=== PATIENT | female | born 1985 | race Caucasian/White ===

== ENCOUNTER 2016-08-31 09:07 | Emergency (ER) | payer OTHER ==
[2016-08-31 10:42] VITALS: BP 150/89
--- NOTE | 2016-08-31 11:19 | UC ---
Respiratory Complaint HPI - HPI Summary HPI Summary: increasd cough and SOB, some nasal congestion over the past week - History of Current Complaint Chief Complaint: UCRespiratory Stated Complaint: COUGH,CONGESTION Time Seen by Provider: 08/31/16 11:08 Hx Obtained From: Patient Hx Last Menstrual Period: ~08/17/16 ?: No Onset/Duration: Sudden Onset, Lasting Days Timing: Constant Severity Initially: Mild Severity Currently: Moderate Pain Intensity: 6 Pain Scale Used: 0-10 Numeric Character: Cough: Nonproductive Aggravating Factors: Deep Breaths, Recumbent Position Alleviating Factors: Nothing Associated Signs And Symptoms: Positive: Wheezing - Allergies/Home Medications Allergies/Adverse Reactions: Allergies Allergy/AdvReac Type Severity Reaction Status Date / Time Bacitracin Allergy Painful Verified 08/31/16 10:37 Pruritis and Rash Home Medications: Home Medications ALPRAZolam TAB* [Xanax TAB*] 1 mg PO Q8H PRN 08/31/16 [History Confirmed ] FLUoxetine CAP* [PROzac CAP*] 40 mg PO TID 08/31/16 [History Confirmed 08/31/16] PMH/Surg Hx/FS Hx/Imm Hx Previously Healthy: Yes Endocrine History Of: Denies: Diabetes, Thyroid Disease Cardiovascular History Of: Denies: Cardiac Disorders, Hypertension Respiratory History Of: Denies: COPD, Asthma GI/ History Of: Denies: Ulcer Neurological History Of: Denies: TIA, CVA, Dementia, Seizures, Migraine Psychological History Of: Reports: Anxiety Denies: Depression, Bipolar Disorder, Schizophrenia, Post Traumatic Stress Disorder Cancer History Of: Denies: Lung Cancer, Colorectal Cancer, Breast Cancer, Prostate Cancer, Cervical Cancer - Surgical History Surgical History: Yes Surgery Procedure, Year, and Place: T&A. urethral diverticulium with cyst removal. eptopic with partial tube removal. ectopic 12/2015 - Family History Known Family History: Negative: Cardiac Disease, Hypertension - Social History Alcohol Use: Occasionally Substance Use Type: None Smoking Status (MU): Former Smoker Type: Cigarettes Length of Time of Smoking/Using Tobacco: On and Off for 3 years Have You Smoked in the Last Year: No When Did the Patient Quit Smoking/Using Tobacco: 2004 - Immunization History Most Recent Influenza Vaccination: Not the Season Review of Systems Constitutional: Negative Skin: Negative Eyes: Negative ENT: Nasal Discharge Respiratory: Shortness Of Breath, Cough Cardiovascular: Negative Gastrointestinal: Negative Genitourinary: Negative Motor: Negative Neurovascular: Negative Musculoskeletal: Negative Neurological: Headache Psychological: Negative All Other Systems Reviewed And Are Negative: Yes Physical Exam Triage Information Reviewed: Yes Appearance: No Pain Distress, Well-Nourished, Ill-Appearing Vital Signs: Initial Vital Signs Temp 98.6 F 08/31/16 10:34 Pulse 64 08/31/16 10:34 Resp 16 08/31/16 10:34 BP 150/89 08/31/16 10:34 Pulse Ox 100 08/31/16 10:34 Vital Signs Reviewed: Yes Eye Exam: Normal Eyes: Positive: Conjunctiva Clear ENT Exam: Normal ENT: Positive: Normal ENT inspection, Pharyngeal erythema, TMs normal Dental Exam: Normal Neck exam: Normal Neck: Positive: Supple, Nontender, No Lymphadenopathy Respiratory Exam: Normal Respiratory: Positive: No respiratory distress, No accessory muscle use, Wheezing, Inspiration, Other: - bronchopastic cough Cardiovascular Exam: Normal Cardiovascular: Positive: RRR, No Murmur, Pulses Normal Abdominal Exam: Normal Abdomen Description: Positive: Nontender, No Organomegaly, Soft Bowel Sounds: Positive: Present Musculoskeletal Exam: Normal Musculoskeletal: Positive: Strength Intact, ROM Intact, No Edema Neurological Exam: Normal Neurological: Positive: Alert, Muscle Tone Normal Psychological Exam: Normal Skin Exam: Normal UC Diagnostic Evaluation - Laboratory O2 Sat by Pulse Oximetry: 100 Respiratory Course/Dx - Course Course Of Treatment: hx obtained, exam performed, medications reviewed and prescribed - Differential Dx/Diagnosis Differential Diagnosis/HQI/PQRI: Asthma, Bronchitis, Influenza, Laryngitis, SARS , Sinusitis Provider Diagnoses: bronchitis Discharge - Discharge Plan Condition: Stable Disposition: HOME Prescriptions: Albuterol HFA INHALER* [Ventolin HFA Inhaler*] 1 - 2 puff INH Q4H PRN #1 mdi PRN Reason: Cough predniSONE TAB* [Deltasone TAB*] 40 mg PO DAILY #10 tab Patient Education Materials: Acute Bronchitis (ED) Additional Instructions: Take the medication as prescribed. Increase fluid intake and I recommend saline spray up the nose to clear and keep the passages moist. follow up with any worsening symptoms.
== END 2016-08-31 11:24 | disposition home or self-care (01) ==
LOC: UCCORT 09:07
DX: J40 Bronchitis, not specified as acute or chronic (principal); F41.9 Anxiety disorder, unspecified; Z87.891 Personal history of nicotine dependence; Z88.1 Allergy status to other antibiotic agents
CPT/HCPCS: 99212; G0463

== ENCOUNTER 2017-01-30 13:39 | Emergency (ER) | payer OTHER ==
[2017-01-30 15:29] VITALS: BP 121/81
[2017-01-30] MEDS ORDERED: Fluorescein Sodium TOPICAL* 1 MG TEST OPHTHALMIC ONE (15:49)
[2017-01-30] MEDS ORDERED: Fluorescein Sodium TOPICAL* 1 MG TEST ONE (15:50)
--- NOTE | 2017-01-30 16:06 | UC ---
Eye Complaint HPI - HPI Summary HPI Summary: R eye redness and irritation since yesterday morning. Uses contacts but is not diligent about changing them; also sleeps in them occasionally. Mild photophobia , tried using leftover eye drops from previous "pink eye" without relief. - History of Current Complaint Chief Complaint: UCEye Stated Complaint: RIGHT EYE COMPLAINT Time Seen by Provider: 01/30/17 15:31 Hx Obtained From: Patient Hx Last Menstrual Period: 01/05/17 ?: No Onset/Duration: Gradual Onset, Lasting Days Timing: Constant Severity Initially: Mild Severity Currently: Moderate Location of Injury: Conjunctiva Character: Dull Aggravating Factor(s): Light Alleviating Factor(s): Darkness Associated Signs And Symptoms: Positive: Drainage (Clear) - Allergies/Home Medications Allergies/Adverse Reactions: Allergies Allergy/AdvReac Type Severity Reaction Status Date / Time Bacitracin Allergy Painful Verified 01/30/17 15:29 Pruritis and Rash Home Medications: Home Medications Hydrocodone-Acetaminophen [Hydrocodone Bitartrate/AC 7.5-300 mg] 1 tab PO Q4H PRN 01/30/17 [History Confirmed 01/30/17] PMH/Surg Hx/FS Hx/Imm Hx Respiratory History: Asthma Psychological History: Bipolar Disorder - Surgical History Surgical History: Yes Surgery Procedure, Year, and Place: T&A. urethral diverticulium with cyst removal. eptopic with partial tube removal. ectopic 12/2015 - Family History Known Family History: Positive: None Negative: Cardiac Disease, Hypertension - Social History Lives: With Family Alcohol Use: Rare Substance Use Type: None Smoking Status (MU): Former Smoker Type: Cigarettes Length of Time of Smoking/Using Tobacco: On and Off for 3 years Have You Smoked in the Last Year: No When Did the Patient Quit Smoking/Using Tobacco: 2004 - Immunization History Most Recent Influenza Vaccination: Not the 2015/2016 Season Review of Systems Constitutional: Negative Skin: Negative Eyes: Eye Redness ENT: Negative Respiratory: Negative Cardiovascular: Negative Gastrointestinal: Negative Genitourinary: Negative Motor: Negative Neurovascular: Negative Musculoskeletal: Negative Neurological: Negative Psychological: Negative All Other Systems Reviewed And Are Negative: Yes Physical Exam Triage Information Reviewed: Yes Appearance: Well-Appearing, No Pain Distress, Well-Nourished Vital Signs: Initial Vital Signs Temp 98.2 F 01/30/17 15:24 Pulse 78 01/30/17 15:24 Resp 17 01/30/17 15:24 BP 121/81 01/30/17 15:24 Pulse Ox 100 01/30/17 15:24 Vital Signs Reviewed: Yes Eye Exam: Other - PERRL Eyes: Positive: Conjunctiva Inflamed - R, Other: - fluorescein dye uptake on superior edge of cornea, irreg, no FB noted ENT Exam: Normal ENT: Positive: Normal ENT inspection, Hearing grossly normal, Pharynx normal, TMs normal Dental Exam: Normal Neck exam: Normal Neck: Positive: Supple, Nontender, No Lymphadenopathy Respiratory Exam: Normal Respiratory: Positive: Chest non-tender, Lungs clear, Normal breath sounds, No respiratory distress, No accessory muscle use Cardiovascular Exam: Normal Cardiovascular: Positive: RRR, No Murmur Musculoskeletal Exam: Normal Neurological Exam: Normal Neurological: Positive: Alert Psychological Exam: Normal Skin Exam: Normal Eye Complaint Course/Dx - Differential Dx/Diagnosis Provider Diagnoses: R eye corneal abrasion. elevated blood pressure due to discomfort. medication refills Discharge - Discharge Plan Condition: Stable Disposition: HOME Prescriptions: ARIPiprazole TAB* [Abilify TAB*] 10 mg PO DAILY #10 tab Albuterol HFA INHALER* [Ventolin HFA Inhaler*] 1 - 2 puff INH Q4H PRN #1 mdi PRN Reason: Cough Ciprofloxacin 0.3% OPTH.CLAUDINE* [Cipro 0.3% Opth*] 2 drop RIGHT EYE QID #5 ml FLUoxetine CAP* [Prozac CAP*] 20 mg PO DAILY #10 cap LORazepam TAB(*) [Ativan 1 MG TAB (*)] 1 mg PO QID PRN #12 tab MDD 4 PRN Reason: Anxiety Patient Education Materials: Corneal Abrasion (ED), Medicine Refill (ED) Referrals: Antonia Bo MD [Medical Doctor] - 3 Days Heri Rojas [Primary Care Provider] - 3 Days Additional Instructions: Please see Dr. Bo's office on Thursday if your symptoms have not resolved. If your eye gets better in 2-3 days, simply use the drops for a week and then stop. You will need to get your regular medication refills from your primary care provider.
== END 2017-01-30 16:18 | disposition home or self-care (01) ==
LOC: UCCORT 13:39
DX: H18.821 Corneal disorder due to contact lens, right eye (principal); J45.909 Unspecified asthma, uncomplicated; F31.9 Bipolar disorder, unspecified; Z87.891 Personal history of nicotine dependence
CPT/HCPCS: 99212; A9270-GY; G0463

== ENCOUNTER 2017-12-22 17:07 | Emergency (ER) | payer OTHER ==
[2017-12-22 18:35] VITALS: BP 105/58
--- NOTE | 2017-12-22 18:45 | UC ---
Complaint Female HPI - HPI Summary HPI Summary: Pt c/o sudden onset of urinary symptoms of frequency, urgency and dysuria that began this morning. - History Of Current Complaint Chief Complaint: UCGU Stated Complaint: UTI Time Seen by Provider: 12/22/17 18:37 Hx Obtained From: Patient Hx Last Menstrual Period: 12/08/17 ?: No Onset/Duration: Sudden Onset, Lasting Hours Timing: Constant Severity Initially: Mild Severity Currently: Mild Pain Intensity: 4 Character: Dull, Burning Aggravating Factor(s): Urination Associated Signs And Symptoms: Positive: Negative - Risk Factors Ectopic Risk Factor: Negative Ovarian Torsion Risk Factor: Reproductive Age - Allergies/Home Medications Allergies/Adverse Reactions: Allergies Allergy/AdvReac Type Severity Reaction Status Date / Time bacitracin Allergy Rash And Verified 12/22/17 18:31 Itching Sulfa (Sulfonamide Allergy Hives Verified 12/22/17 18:31 Antibiotics) PMH/Surg Hx/FS Hx/Imm Hx Previously Healthy: Yes - Surgical History Surgical History: Yes Surgery Procedure, Year, and Place: T&A. urethral diverticulium with cyst removal. eptopic with partial tube removal. ectopic 12/2015. RENAL CALCULI LITHOTRIPSY - Family History Known Family History: Positive: None Negative: Cardiac Disease, Hypertension - Social History Occupation: Employed Full-time Lives: With Family Alcohol Use: Rare Substance Use Type: None Smoking Status (MU): Former Smoker Type: Cigarettes Length of Time of Smoking/Using Tobacco: On and Off for 3 years Have You Smoked in the Last Year: No When Did the Patient Quit Smoking/Using Tobacco: 2004 - Immunization History Most Recent Influenza Vaccination: Not the Season Review of Systems Constitutional: Negative Skin: Negative Eyes: Negative ENT: Negative Respiratory: Negative Cardiovascular: Negative Gastrointestinal: Negative Genitourinary: Dysuria, Frequency, Urgency Motor: Negative Neurovascular: Negative Musculoskeletal: Negative Neurological: Negative Psychological: Negative Is Patient Immunocompromised?: No All Other Systems Reviewed And Are Negative: Yes Physical Exam Triage Information Reviewed: Yes Appearance: Well-Appearing Vital Signs: Initial Vital Signs Temp 99.1 F 12/22/17 18:27 Pulse 64 12/22/17 18:27 Resp 14 12/22/17 18:27 BP 105/58 12/22/17 18:27 Pulse Ox 100 12/22/17 18:27 Vital Signs Reviewed: Yes Eye Exam: Normal ENT: Positive: Hearing grossly normal Dental Exam: Normal Respiratory: Positive: No respiratory distress Musculoskeletal Exam: Normal Neurological Exam: Normal Psychological Exam: Normal Skin Exam: Normal Complaint Female Dx - Differential Dx/Diagnosis Differential Diagnosis/HQI/PQRI: Urinary Tract Infection Provider Diagnoses: UTI Discharge - Sign-Out/Discharge Documenting (check all that apply): Discharge/Admit/Transfer - Discharge Plan Condition: Stable Disposition: HOME Prescriptions: Cephalexin CAP* [Keflex 500 CAP*] 500 mg PO Q12H #14 cap Phenazopyridine TAB* [Pyridium 100 mg TAB*] 100 mg PO Q8H #3 tab Patient Education Materials: Urinary Tract Infection in Women (ED) Referrals: Alexia Santiago MD [Primary Care Provider] - If Needed - Billing Disposition and Condition Condition: STABLE Disposition: HOME
== END 2017-12-22 18:55 | disposition home or self-care (01) ==
LOC: UCCORT 17:07
DX: N39.0 Urinary tract infection, site not specified (principal); Z88.1 Allergy status to other antibiotic agents; Z88.2 Allergy status to sulfonamides
CPT/HCPCS: 81003; 87086; 99212; G0463

== ENCOUNTER 2018-05-12 08:32 | Emergency (ER) | payer OTHER ==
--- OUTSIDE RECORDS SUMMARY | 2018-05-12 09:31 | XMS REPORT | Continuity of Care Document ---
:1985 External Reference #:[id number] Author Name Carlitos Morales N.P. Address [address] [place] [address] Care Team Providers Name Role Phone Alexia Santiago MD Care Team Information C S S Representative Unavailable Payers Type Date Identification Numbers Payment Provider Subscriber Policy Number: [id number] [facility] Donald vIan PayID: [id number] [address] [place] [address] Policy Number: [id number] [employer] Donald Ivan PayID: [id number] [address] [place] [address] Advance Directives Description No Information Available Problems Date Description Provider Status Onset: 07/08/2016 Anxiety state Heri Higgins Active Onset: 07/08/2016 Insomnia Heri Higgins Active Onset: 07/08/2016 Bipolar disorder Heri Higgins Active Onset: 07/08/2016 Moderate recurrent major depression Heri Higgins Active Onset: 07/08/2016 Degeneration of lumbar intervertebral disc Heri Higgins Active Family History Date Family Member(s) Problem(s) Comments Father 58 Father Thyroid Disease Father Hyperthyroidism Mother 61 Mother No Current Problems Children 1 Social History Type Date Description Comments Sex Unknown Marital Status Legal Status: Never 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 every day F41.9 Fluoxetine HCL 05/06/2016 Active Capsules 40mg 90caps 1 by mouth F31.81 Alexia Santiago three times M., M.D. a day a day F41.9 Ibuprofen Active Tablets 600mg 90tabs 1 tab by mouth M51.37 Alexia Santiago three times a M., M.D. day as needed M79.606 M54.2 Fluconazole Hx Tablets 100mg 14tabs tab one by N76.0 Alexia Santiago 017 - mouth x14 M., M.D. days 018 Metronidazole Hx Tablets 500mg 20tabs 1 tab by N76.0 Alexia Santiago 017 - mouth twice a M., M.D. day 017 Ondansetron HCL Hx Tablets 8mg 40tabs 1 tab by N20.0 Alexia Santiago 017 - mouth every 6 M., M.D. hours as 018 needed Diazepam Hx Tablets 5mg 90tabs 1 tab by F41.9 Alexia Santiago 017 - mouth bid-tid M., M.D. as needed 018 Hydrocodone-Acetamino Hx Tablets 10-325m 180tabs 1-2 tab by M51.37 Alexia Santiago phen 017 - g mouth every 4 M., M.D. hours as 018 needed M79.606 Gentamicin 12/18/2016 - Hx Solution 0.3% 10cc 2 drops both Jack, Sulfate 12/29/2016 eyes three Ahmad M., times a day M.D. for 5-7 days Topiramate 09/16/2016 - Hx Tablets 50mg 60tabs tab one by M54. Jack, 09/23/2016 mouth twice a 2 Ahmad M., day M.D. Cipro 09/04/2016 - Hx Tablets 500mg 20tabs 1 twice a day J06. Jack, 09/15/2016 9 Alexia Garcia M.D. Cheratussin ac 09/04/2016 - Hx Syrup 100-10mg 150cc teaspoon 1 J06. Jack, 09/13/2016 /5ML every 4 hours 9 Alexia Garcia, as needed M.D. Prednisone 08/12/2016 - Hx Tablets 20mg 18tabs 3 tab by mouth Jack, 09/13/2016 daily 3 days, Ahmaglenn Garcia, then 2 tab M.D. daily x 3 d , then 1 tab daily 3d Fluoxetine HCL 04/11/2016 - Hx Capsules 20mg 60caps tab one by F33Leonardo Santiago, (PMDD) 05/06/2016 mouth twice a 1 Alexia Garcia, day M.DLeonardo Cephalexin 03/03/2016 - Hx Capsules 500mg 30caps tab one by Jack, 03/14/2016 mouth three Alexia Garcia, times a day M.D. Quetiapine 02/28/2016 - Hx Tablets 25mg 60tabs tab one po bid F31. Jack, Fumarate 04/11/2016 81 Alexia Garcia M.D. Aripiprazole 02/26/2016 - Hx Tablets 10mg 30tabs Tab One PO Q Jack, 02/28/2016 hs Alexia Garcia M.D. Sulfamethoxazole 02/26/2016 - Hx Tablets 800-160m 20tabs tab one by Jack, /Trimethoprim DS 03/03/2016 g mouth twice a Alexia Garcia, day M.DLeonardo Physical Therapy 08/14/2015 - Hx strengthen Danny Santiago, To Lumbar Region 08/31/2015 lumbar muscles 5 Alexia Garcia M.D. Ondansetron HCL 06/05/2015 - Hx Tablets 4mg 60tabs Tab One Q 4 M54. Jack, 11/09/2015 HRS prn 5 Alexia Garcia M.D. Gabapentin 05/31/2015 - Hx Capsules 300mg 30caps take one M54. Jack, 06/05/2015 capsule by 5 Alexia Garcia, mouth three M.D. times a day maximum daily dose=3 M25.559 M54.30 Hydrocodone-Acetaminophen 05/31/2015 Hx Tablets 7.5-325mg 120tabs tab one M51.37 Jack, - by esthela 04/15/2017 mouth M., every 3 M.D. hour as needed M79.606 [facility] 10&20&40[facility] F31.81 [facility] Nakul Garcia Ativan - Hx Tablets 1mg 45tabs 1 tab by 1.81 Jack, [facility] 04/15/2017 mouth three Nakul Garcia times a day as needed G47.00 Cyclobenzaprine HCL - Hx Tablets 10mg Unknown 11/30/2015 Hydrocodone-Acetaminophen - Hx Tablets 5-325mg Alexia Santiago, 05/31/2015 M.DLeonardo Immunizations CPT Code Status Date Vaccine Lot # [id number] Refused 06/10/2016 Flu Vaccine 65084 Refused 06/19/2015 Flu Vaccine Vital Signs Date Vital Result Comment 05/03/2018 11:32am BP Systolic 112 mmHg BP Diastolic 72 mmHg Height 64 inches 5'4" Weight 153.00 lb BMI (Body Mass Index) 26.3 kg/m2 Heart Rate 74 /min Body Temperature 97.3 F Respiratory Rate 18 /min 04/26/2018 3:57pm BP Systolic 118 mmHg BP Diastolic 78 mmHg Height 63.5 inches 5'3.50" Weight 155.00 lb BMI (Body Mass Index) 27.0 kg/m2 Heart Rate 81 /min Respiratory Rate 16 /min 12/24/2017 1:28pm BP Systolic 100 mmHg BP Diastolic 62 mmHg Height 63.5 inches 5'3.50" Weight 151.00 lb BMI (Body Mass Index) 26.3 kg/m2 Heart Rate 64 /min Respiratory Rate 18 /min 09/08/2017 11:37am BP Systolic 124 mmHg BP Diastolic 62 mmHg Height 63.5 inches 5'3.50" Weight 162.00 lb BMI (Body Mass Index) 28.2 kg/m2 Heart Rate 64 /min Respiratory Rate 18 /min 08/05/2017 1:27pm BP Systolic 124 mmHg BP Diastolic 70 mmHg Height 63.5 inches 5'3.50" Weight 161.00 lb BMI (Body Mass Index) 28.1 kg/m2 Heart Rate 55 /min Respiratory Rate 16 /min 07/10/2017 11:03am BP Systolic 124 mmHg BP Diastolic 62 mmHg Height 63.5 inches 5'3.50" Weight 158.00 lb BMI (Body Mass Index) 27.5 kg/m2 Heart Rate 66 /min Respiratory Rate 16 /min 06/24/2017 3:43pm BP Systolic 114 mmHg BP Diastolic 72 mmHg Height 63.5 inches 5'3.50" Weight 162.00 lb BMI (Body Mass Index) 28.2 kg/m2 Heart Rate 79 /min Respiratory Rate 16 /min 06/10/2017 3:08pm BP Systolic 110 mmHg BP Diastolic 62 mmHg Height 63.5 inches 5'3.50" Weight 161.00 lb BMI (Body Mass Index) 28.1 kg/m2 Heart Rate 75 /min Respiratory Rate 18 /min 05/27/2017 10:43am BP Systolic 118 mmHg BP Diastolic 72 mmHg Height 63.5 inches 5'3.50" Weight 160.00 lb BMI (Body Mass Index) 27.9 kg/m2 Respiratory Rate 18 /min 05/13/2017 3:40pm BP Systolic 108 mmHg BP Diastolic 62 mmHg Height 63.5 inches 5'3.50" Weight 163.00 lb BMI (Body Mass Index) 28.4 kg/m2 Heart Rate 85 /min Respiratory Rate 18 /min 04/29/2017 10:14am BP Systolic 108 mmHg BP Diastolic 68 mmHg Height 63.5 inches 5'3.50" Weight 165.00 lb BMI (Body Mass Index) 28.8 kg/m2 Heart Rate 59 /min Respiratory Rate 18 /min 04/15/2017 4:02pm BP Systolic 100 mmHg BP Diastolic 62 mmHg Weight 157.00 lb Heart Rate 60 /min Respiratory Rate 16 /min 03/23/2017 1:56pm BP Systolic 122 mmHg BP Diastolic 82 mmHg Height 63.5 inches 5'3.50" Weight 151.00 lb BMI (Body Mass Index) 26.3 kg/m2 Heart Rate 69 /min Respiratory Rate 18 /min 02/18/2017 10:52am BP Systolic 102 mmHg BP Diastolic 62 mmHg Height 63.5 inches 5'3.50" Weight 148.00 lb BMI (Body Mass Index) 25.8 kg/m2 Heart Rate 72 /min Respiratory Rate 16 /min 02/04/2017 10:06am BP Systolic 116 mmHg BP Diastolic 58 mmHg Height 63.5 inches 5'3.50" Weight 144.00 lb BMI (Body Mass Index) 25.1 kg/m2 Heart Rate 66 /min Respiratory Rate 16 /min 12/17/2016 4:43pm BP Systolic 128 mmHg BP Diastolic 68 mmHg Height 63.5 inches 5'3.50" Weight 146.00 lb BMI (Body Mass Index) 25.5 kg/m2 Heart Rate 98 /min Respiratory Rate 16 /min 10/29/2016 10:53am BP Systolic 118 mmHg BP Diastolic 82 mmHg Height 63.5 inches 5'3.50" Weight 142.00 lb BMI (Body Mass Index) 24.8 kg/m2 Heart Rate 91 /min Respiratory Rate 18 /min 10/03/2016 11:03am BP Systolic 122 mmHg BP Diastolic 78 mmHg Height 63.5 inches 5'3.50" Weight 140.00 lb BMI (Body Mass Index) 24.4 kg/m2 Heart Rate 77 /min Respiratory Rate 16 /min 09/16/2016 11:29am BP Systolic 130 mmHg BP Diastolic 90 mmHg Height 63.5 inches 5'3.50" Weight 138.00 lb BMI (Body Mass Index) 24.1 kg/m2 Heart Rate 100 /min 09/04/2016 1:16pm BP Systolic 122 mmHg BP Diastolic 78 mmHg Height 63.5 inches 5'3.50" Weight 131.00 lb BMI (Body Mass Index) 22.8 kg/m2 Heart Rate 118 /min Body Temperature 97.7 F 08/12/2016 11:34am BP Systolic 118 mmHg BP Diastolic 76 mmHg Height 63.5 inches 5'3.50" Weight 137.00 lb BMI (Body Mass Index) 23.9 kg/m2 Heart Rate 74 /min Respiratory Rate 12 /min 07/08/2016 3:06pm BP Systolic 122 mmHg BP Diastolic 74 mmHg Height 63.5 inches 5'3.50" Weight 131.00 lb BMI (Body Mass Index) 22.8 kg/m2 Heart Rate 76 /min Respiratory Rate 16 /min 06/10/2016 9:55am BP Systolic 122 mmHg BP Diastolic 74 mmHg Height 63.5 inches 5'3.50" Weight 132.00 lb BMI (Body Mass Index) 23.0 kg/m2 Heart Rate 61 /min Respiratory Rate 16 /min 05/06/2016 10:15am BP Systolic 124 mmHg BP Diastolic 76 mmHg Height 63.5 inches 5'3.50" Weight 140.00 lb BMI (Body Mass Index) 24.4 kg/m2 Heart Rate 80 /min Respiratory Rate 16 /min 04/11/2016 11:29am BP Systolic 126 mmHg BP Diastolic 78 mmHg Height 63.5 inches 5'3.50" Weight 149.00 lb BMI (Body Mass Index) 26.0 kg/m2 Heart Rate 80 /min Respiratory Rate 16 /min 02/26/2016 2:58pm BP Systolic 122 mmHg BP Diastolic 84 mmHg Height 63.5 inches 5'3.50" Weight 148.00 lb BMI (Body Mass Index) 25.8 kg/m2 Heart Rate 80 /min Respiratory Rate 16 /min 01/08/2016 3:30pm BP Systolic 124 mmHg BP Diastolic 72 mmHg Height 63.5 inches 5'3.50" Weight 143.00 lb BMI (Body Mass Index) 24.9 kg/m2 Heart Rate 76 /min Respiratory Rate 16 /min 11/30/2015 4:18pm BP Systolic 118 mmHg BP Diastolic 76 mmHg Height 63.5 inches 5'3.50" Weight 143.00 lb BMI (Body Mass Index) 24.9 kg/m2 Heart Rate 76 /min Respiratory Rate 16 /min 08/14/2015 11:07am BP Systolic 126 mmHg BP Diastolic 78 mmHg Height 63.5 inches 5'3.50" Weight 142.00 lb BMI (Body Mass Index) 24.8 kg/m2 Heart Rate 80 /min Body Temperature 97.6 F Respiratory Rate 16 /min 06/19/2015 4:14pm BP Systolic 122 mmHg BP Diastolic 78 mmHg Height 63.5 inches 5'3.50" Weight 140.00 lb BMI (Body Mass Index) 24.4 kg/m2 Heart Rate 80 /min Respiratory Rate 16 /min 06/05/2015 11:08am BP Systolic 126 mmHg BP Diastolic 78 mmHg Height 63.5 inches 5'3.50" Weight 140.00 lb BMI (Body Mass Index) 24.4 kg/m2 Heart Rate 80 /min Respiratory Rate 16 /min 05/31/2015 10:05am BP Systolic 124 mmHg BP Diastolic 78 mmHg Height 63.5 inches 5'3.50" Weight 140.00 lb BMI (Body Mass Index) 24.4 kg/m2 Heart Rate 80 /min Respiratory Rate 16 /min 02/13/2015 3:44pm BP Systolic 126 mmHg BP Diastolic 82 mmHg Height 63.5 inches 5'3.50" Weight 138.00 lb BMI (Body Mass Index) 24.1 kg/m2 Heart Rate 80 /min Respiratory Rate 16 /min Results Test Date Facility Test Result H/L Range Note Chlmaydia/GC/Tr 02/23/2018 [facility] Trichomonas vaginalis POSITIVE Negative 1 ichomonas PCR PCR Chlamydia trachomatis, PCR Negative Negative Neisseria gonorrhoeae, PCR Negative Negative 2 Urinalysis With Microscopic 02/23/2018 [facility] Urine Color YELLOW Yellow Urine Clarity SL CLOUDY Clear Urine Glucose - Dipstick NEGATIVE mg/dL Negative Urine Bilirubin - Dipstick NEGATIVE Negative Urine Ketone NEGATIVE mg/dL Negative Urine Specific [place] 1.010 1.010-1.030 Urine Blood NEGATIVE Negative Urine PH 6.0 Low 6.5-7.5 Urine Protein - Dipstick NEGATIVE mg/dL Negative Urine Urobilinogen - Dipstick 0.2 E.U./dL 0.2-1.0 Urine Nitrite - Dipstick NEGATIVE Negative Urine Leuk Esterase LARGE Negative Urine RBC 2-5 rbc/hpf 0-2 Urine WBC > 50 wbc/hpf High 0-7 3 Urine Epithelial Cells FEW /lpf None Seen Urine Bacteria FEW None Seen Source: URINE, CLEAN CAT <SEE NOTE> 4 Urine Culture 02/23/2018 [facility] Urine Culture URETHRAL JOSSELIN Quantity 10,000 - 50,000 <SEE NOTE> 5 CBS W/Automated Diff 02/23/2018 [facility] White Blood Count 8.1 K/uL 3.1- 10.7 Red Blood Count 3.76 M/uL Low 3.90-5.40 Hemoglobin 11.8 gm/dL 11.6-15.8 Hematocrit 34.5 % Low 36.0-46.1 Mean Cell Volume 91.8 fl 80.9-99.0 Mean Corpuscular HGB 31.4 pg 25.9-32.7 Mean Corpuscular HGB Conc 34.2 g/dL 30.8-34.3 Platelet Count 241 K/uL 155-360 Red Cell Distri Width SD 43.1 fl 3-47 Red Cell Distri Width %CV 13.4 % 11.7-14.4 Mean Platelet Volume 10.0 fL 8.9-12.4 Neut% 62.2 % 40.4-72.8 Lymph % 28.8 % 20.0-42.0 [place] % 8.1 % 4.3-13.2 Eo% 0.7 % 0.0-6.6 Bas% 0.2 % 0.0-1.1 Neut# 5.01 K/uL 1.8-7.0 Lymph # 2.32 K/uL 1.0-4.0 [place] # 0.65 K/uL 0.3-0.9 Eos # 0.06 K/uL 0.0-0.5 Baso # 0.02 K/uL 0.0-0.1 Comprehensive Metabolic Panel 02/23/2018 [facility] Glucose 81 mg/dL 74- 106 BUN 9 mg/dL 7-18 Creatinine 0.8 mg/dL 0.6-1.3 Glom Filtration Rate, Estimate >60 mL/min >60 If >60 mL/min >60 6 BUN/Creat 11.2 ratio Sodium 141 mmol/L 136-145 Potassium 3.5 mmol/L 3.5-5.1 Chloride 109 mmol/L High 98-107 Carbon Dioxide 25 mmol/L 21-32 Anion Gap 7 mEq/L Low 8-16 Calcium 8.5 mg/dL 8.5-10.1 Total Protein 7.0 g/dL 6.4-8.2 Albumin 3.0 g/dL Low 3.4-5.0 Globulin 4.0 g/dL 1.9-4.3 Alb/Glob 0.8 ratio Bilirubin,Total 0.1 mg/dL Low 0.2-1.0 Sgot/Ast 12 U/L Low 15-37 7 SGPT/Alt 21 U/L 12-78 Alkaline Phosphatase 93 U/L 45-117 Laboratory test finding 02/23/2018 [facility] Lipase 841 U/L High 56-289 8 HCG,Serum (Qualitative) NEGATIVE (Negative) 9 Urinalysis With Microscopic 02/21/2018 [facility] Urine Color YELLOW Yellow 10 Urine Clarity CLOUDY Clear Urine Glucose - Dipstick NEGATIVE mg/dL Negative Urine Bilirubin - Dipstick NEGATIVE Negative Urine Ketone NEGATIVE mg/dL Negative Urine Specific [place] >=1.030 1.010-1.030 Urine Blood SMALL Negative Urine PH 6.0 Low 6.5-7.5 Urine Protein - Dipstick TRACE mg/dL Negative Urine Urobilinogen - Dipstick 0.2 E.U./dL 0.2-1.0 Urine Nitrite - Dipstick NEGATIVE Negative Urine Leuk Esterase MODERATE Negative Urine RBC 2-5 rbc/hpf 0-2 Urine WBC > 50 wbc/hpf High 0-7 Urine Epithelial Cells MANY /lpf None Seen 11 Urine Calcium Oxalate Crystals FEW None Seen Urine Bacteria MODERATE None Seen Source: URINE, CLEAN CAT <SEE NOTE> 12 Laboratory test 02/21/2018 [facility] Urine Culture NO GROWTH: FINAL 13 finding <SEE NOTE> Urinalysis With 02/14/2018 [facility] Urine Color YELLOW Yellow 14 Microscopic Urine Clarity SL CLOUDY Clear Urine Glucose - Dipstick NEGATIVE mg/dL Negative Urine Bilirubin - Dipstick NEGATIVE Negative Urine Ketone NEGATIVE mg/dL Negative Urine Specific [place] <=1.005 Low 1.010-1.030 Urine Blood TRACE Negative Urine PH 5.5 Low 6.5-7.5 Urine Protein - Dipstick NEGATIVE mg/dL Negative Urine Urobilinogen - Dipstick 0.2 E.U./dL 0.2-1.0 Urine Nitrite - Dipstick NEGATIVE Negative Urine Leuk Esterase LARGE Negative Urine RBC NONE SEEN rbc/hpf 0-2 Urine WBC 30-50 wbc/hpf High 0-7 Urine Epithelial Cells MODERATE /lpf None Seen 15 Urine Bacteria VERY FEW None Seen Source: URINE, CLEAN CAT <SEE NOTE> 16 Chlam/GC/Trichomonas PCR, 02/14/2018 [facility] Ur Trichomonas POSITIVE Negative Ur vaginalis,PCR Ur Chlamydia trachomatis,PCR Negative Negative Ur Neisseria gonorrhoeae,PCR Negative Negative 17 CBS W/Automated Diff 02/14/2018 [facility] White Blood Count 8.1 K/uL 3.1- 10.7 Red Blood Count 4.01 M/uL 3.90-5.40 Hemoglobin 12.6 gm/dL 11.6-15.8 Hematocrit 37.1 % 36.0-46.1 Mean Cell Volume 92.5 fl 80.9-99.0 Mean Corpuscular HGB 31.4 pg 25.9-32.7 Mean Corpuscular HGB Conc 34.0 g/dL 30.8-34.3 Platelet Count 242 K/uL 155-360 Red Cell Distri Width SD 43.9 fl 3-47 Red Cell Distri Width %CV 13.4 % 11.7-14.4 Mean Platelet Volume 10.0 fL 8.9-12.4 Neut% 67.3 % 40.4-72.8 Lymph % 21.8 % 20.0-42.0 [place] % 9.1 % 4.3-13.2 Eo% 1.6 % 0.0-6.6 Bas% 0.2 % 0.0-1.1 Neut# 5.46 K/uL 1.8-7.0 Lymph # 1.77 K/uL 1.0-4.0 [place] # 0.74 K/uL 0.3-0.9 Eos # 0.13 K/uL 0.0-0.5 Baso # 0.02 K/uL 0.0-0.1 Lactic Acid 02/14/2018 [facility] Lactic Acid 0.5 mmol/L 0.4-1.9 Lab Reflex >2.0 for Sepsis? Y Urinalysis With Microscopic 02/14/2018 [facility] Urine Color YELLOW Yellow Urine Clarity CLOUDY Clear Urine Glucose - Dipstick NEGATIVE mg/dL Negative Urine Bilirubin - Dipstick NEGATIVE Negative Urine Ketone NEGATIVE mg/dL Negative Urine Specific [place] 1.010 1.010-1.030 Urine Blood TRACE Negative Urine PH 6.0 Low 6.5-7.5 Urine Protein - Dipstick TRACE mg/dL Negative Urine Urobilinogen - Dipstick 0.2 E.U./dL 0.2-1.0 Urine Nitrite - Dipstick NEGATIVE Negative Urine Leuk Esterase LARGE Negative Urine RBC 2-5 rbc/hpf 0-2 Urine WBC > 50 wbc/hpf High 0-7 Urine Epithelial Cells MANY /lpf None Seen 18 Urine Bacteria MODERATE None Seen Source: URINE, CLEAN CAT <SEE NOTE> 19 Urine Culture 02/14/2018 [facility] Urine Culture BETA STREPTOCOCC <SEE NOTE > 20 Quantity > 100,000 CFU/mL 21 Recommended Therapy: PENICILLIN OR AM <SEE NOTE> 22 Urine Culture URETHRAL JOSSELIN Quantity 10,000 - 50,000 <SEE NOTE> 23 Urine Culture And 12/22/2017 [facility] Urine SEE RESULT 24, 25 Sensitivities Culture BELOW Poc Urinalysis 12/22/2017 [facility] Poc Glucose, Negative Negative Urine Poc Bilirubin, Urine Negative Negative Poc Ketone, Urine Negative Negative Poc Specific [place], Urine >=1.030 1.010-1.030 Poc Blood, Urine 3+ Negative Poc pH, Urine 6.0 5-9 Poc Protein, Urine 3+ Negative Poc Urobilinogen, Urine 0.2 Negative Poc Nitrite, Urine Negative Negative Poc Leukocytes, Urine 3+ Negative Poc Color, Urine Yellow Poc Clarity, Urine Clear 26 CBS W/Automated Diff 07/22/2017 [facility] White Blood Count 7.6 K/uL 3.1- 10.7 27 Red Blood Count 4.14 M/uL 3.90-5.40 Hemoglobin 13.2 gm/dL 11.6-15.8 Hematocrit 38.8 % 36.0-46.1 Mean Cell Volume 93.7 fl 80.9-99.0 Mean Corpuscular HGB 31.9 pg 25.9-32.7 Mean Corpuscular HGB Conc 34.0 g/dL 30.8-34.3 Platelet Count 221 K/uL 155-360 Red Cell Distri Width SD 43.9 fl 3-47 Red Cell Distri Width %CV 13.2 % 11.7-14.4 Mean Platelet Volume 10.2 fL 8.9-12.4 Neut% 67.5 % 40.4-72.8 Lymph % 23.6 % 20.0-42.0 [place] % 7.6 % 4.3-13.2 Eo% 1.0 % 0.0-6.6 Bas% 0.3 % 0.0-1.1 Neut# 5.16 K/uL 1.8-7.0 Lymph # 1.80 K/uL 1.0-4.0 [place] # 0.58 K/uL 0.3-0.9 Eos # 0.08 K/uL 0.0-0.5 Baso # 0.02 K/uL 0.0-0.1 Urinalysis With Microscopic 07/22/2017 [facility] Urine Color YELLOW Yellow Urine Clarity SL CLOUDY Clear Urine Glucose - Dipstick NEGATIVE mg/dL Negative Urine Bilirubin - Dipstick NEGATIVE Negative Urine Ketone NEGATIVE mg/dL Negative Urine Specific [place] >=1.030 1.010-1.030 Urine Blood LARGE Negative Urine PH 6.0 Low 6.5-7.5 Urine Protein - Dipstick NEGATIVE mg/dL Negative Urine Urobilinogen - Dipstick 0.2 E.U./dL 0.2-1.0 Urine Nitrite - Dipstick NEGATIVE Negative Urine Leuk Esterase TRACE Negative Urine RBC 5-10 rbc/hpf High 0-2 Urine WBC 10-20 wbc/hpf High 0-7 Urine Epithelial Cells VERY FEW /lpf None Seen Urine Bacteria NONE SEEN None Seen Source: URINE, CLEAN CAT <SEE NOTE> 28 Urine Culture 07/22/2017 [facility] Urine Culture URETHRAL JOSSELIN Quantity 10,000 - 50,000 <SEE NOTE> 29 CBS W/Automated Diff 07/08/2017 [facility] White Blood Count 3.4 K/uL 3.1- 10.7 30 Red Blood Count 3.69 M/uL Low 3.90-5.40 Hemoglobin 11.8 gm/dL 11.6-15.8 Hematocrit 34.3 % Low 36.0-46.1 Mean Cell Volume 93.0 fl 80.9-99.0 Mean Corpuscular HGB 32.0 pg 25.9-32.7 Mean Corpuscular HGB Conc 34.4 g/dL High 30.8-34.3 Platelet Count 189 K/uL 150-400 Red Cell Distri Width SD 41.7 fl 3-47 Red Cell Distri Width %CV 12.8 % 11.7-14.4 Mean Platelet Volume 9.4 fL 8.9-12.4 Neut% 62.1 % 40.4-72.8 Lymph % 26.5 % 20.0-42.0 [place] % 10.5 % 4.3-13.2 Eo% 0.6 % 0.0-6.6 Bas% 0.3 % 0.0-1.1 Neut# 2.13 K/uL 1.8-7.0 Lymph # 0.91 K/uL Low 1.0-4.0 [place] # 0.36 K/uL 0.3-0.9 Eos # 0.02 K/uL 0.0-0.5 Baso # 0.01 K/uL 0.0-0.1 Comprehensive Metabolic Panel 07/08/2017 [facility] Glucose 84 mg/dL 74- 106 BUN 3 mg/dL Low 7-18 Creatinine 0.6 mg/dL 0.6-1.3 Glom Filtration Rate, Estimate >60 mL/min >60 If >60 mL/min >60 31 BUN/Creat 5.0 ratio Sodium 141 mmol/L 136-145 Potassium 3.5 mmol/L 3.5-5.1 Chloride 111 mmol/L High 98-107 Carbon Dioxide 25 mmol/L 21-32 Anion Gap 5 mEq/L Low 8-16 Calcium 7.8 mg/dL Low 8.5-10.1 Total Protein 6.3 g/dL Low 6.4-8.2 Albumin 2.8 g/dL Low 3.4-5.0 Globulin 3.5 g/dL 1.9-4.3 Alb/Glob 0.8 ratio Bilirubin,Total 0.2 mg/dL 0.2-1.0 Sgot/Ast 14 U/L Low 15-37 32 SGPT/Alt 20 U/L 12-78 Alkaline Phosphatase 76 U/L 45-117 Urinalysis With Microscopic 07/08/2017 [facility] Urine Color YELLOW Yellow Urine Clarity CLEAR Clear Urine Glucose - Dipstick NEGATIVE mg/dL Negative Urine Bilirubin - Dipstick NEGATIVE Negative Urine Ketone NEGATIVE mg/dL Negative Urine Specific [place] <=1.005 Low 1.010-1.030 Urine Blood LARGE Negative Urine PH 6.0 Low 6.5-7.5 Urine Protein - Dipstick NEGATIVE mg/dL Negative Urine Urobilinogen - Dipstick 0.2 E.U./dL 0.2-1.0 Urine Nitrite - Dipstick NEGATIVE Negative Urine Leuk Esterase MODERATE Negative Urine RBC 5-10 rbc/hpf High 0-2 Urine WBC 20-30 wbc/hpf High 0-7 Urine Epithelial Cells MANY /lpf None Seen 33 Urine Bacteria FEW None Seen Urine Fine Gran Cast 0-2 #/lpf None Seen Source: URINE, CLEAN CAT <SEE NOTE> 34 Urine Culture 07/08/2017 [facility] Urine Culture URETHRAL JOSSELIN Quantity 10,000 - 50,000 <SEE NOTE> 35 Blood Culture 07/07/2017 [facility] Blood Culture Aerobic NO GROWTH: FINAL < SEE 36 NOTE> Blood Culture Anaerobic NO GROWTH: FINAL <SEE NOTE> 37 CBS W/Automated Diff 07/07/2017 [facility] White Blood Count 4.6 K/uL 3.1- 10.7 Red Blood Count 3.42 M/uL Low 3.90-5.40 Hemoglobin 10.8 gm/dL Low 11.6-15.8 Hematocrit 32.2 % Low 36.0-46.1 Mean Cell Volume 94.2 fl 80.9-99.0 Mean Corpuscular HGB 31.6 pg 25.9-32.7 Mean Corpuscular HGB Conc 33.5 g/dL 30.8-34.3 Platelet Count 177 K/uL 150-400 Red Cell Distri Width SD 42.6 fl 3-47 Red Cell Distri Width %CV 12.8 % 11.7-14.4 Mean Platelet Volume 10.2 fL 8.9-12.4 Neut% 64.1 % 40.4-72.8 Lymph % 26.1 % 20.0-42.0 [place] % 8.1 % 4.3-13.2 Eo% 1.5 % 0.0-6.6 Bas% 0.2 % 0.0-1.1 Neut# 2.94 K/uL 1.8-7.0 Lymph # 1.20 K/uL 1.0-4.0 [place] # 0.37 K/uL 0.3-0.9 Eos # 0.07 K/uL 0.0-0.5 Baso # 0.01 K/uL 0.0-0.1 Laboratory test 07/07/2017 [facility] Treponema Antibody Negative Negative 38 finding [place] Lactic Acid 07/07/2017 [facility] Lactic Acid 0.6 mmol/L 0.4-1.9 Lab Reflex >2.0 for Sepsis? Y Comprehensive Metabolic Panel 07/07/2017 [facility] Glucose 103 mg/dL 74- 106 BUN 7 mg/dL 7-18 Creatinine 0.6 mg/dL 0.6-1.3 Glom Filtration Rate, Estimate >60 mL/min >60 If >60 mL/min >60 39 BUN/Creat 11.6 ratio Sodium 141 mmol/L 136-145 Potassium 3.6 mmol/L 3.5-5.1 Chloride 112 mmol/L High 98-107 Carbon Dioxide 24 mmol/L 21-32 Anion Gap 5 mEq/L Low 8-16 Calcium 7.3 mg/dL Low 8.5-10.1 Total Protein 5.5 g/dL Low 6.4-8.2 Albumin 2.4 g/dL Low 3.4-5.0 Globulin 3.1 g/dL 1.9-4.3 Alb/Glob 0.8 ratio Bilirubin,Total 0.1 mg/dL Low 0.2-1.0 Sgot/Ast 11 U/L Low 15-37 40 SGPT/Alt 19 U/L 12-78 Alkaline Phosphatase 67 U/L 45-117 Laboratory test 07/07/2017 [place] Magnesium 1.8 mg/dL 1.8-2.4 finding Blood Culture 07/07/2017 [place] Blood Culture NO GROWTH: 41 Aerobic FINAL <SEE NOTE> Blood Culture Anaerobic NO GROWTH: FINAL <SEE NOTE> 42 Chlamydia/GC [place], 07/07/2017 [place] Chlamydia Negative Negative Urine Trachomatis,Ur -PCR Neisseria Gonorrhoeae,Ur -PCR Negative Negative 43 Laboratory test 07/07/2017 [place] Rapid Abdet Non-Reactive 44 finding Urine Culture 07/06/2017 [place] Urine Culture MIXED URETHRAL F <SEE 45 NOTE> Quantity > 100,000 CFU/mL 46 Urinalysis With Microscopic 07/06/2017 [place] Urine Color YELLOW Yellow 47 Urine Clarity CLOUDY Clear Urine Glucose - Dipstick NEGATIVE mg/dL Negative Urine Bilirubin - Dipstick NEGATIVE Negative Urine Ketone NEGATIVE mg/dL Negative Urine Specific [place] 1.025 1.010-1.030 Urine Blood TRACE Negative Urine PH 6.0 Low 6.5-7.5 Urine Protein - Dipstick TRACE mg/dL Negative Urine Urobilinogen - Dipstick 0.2 E.U./dL 0.2-1.0 Urine Nitrite - Dipstick NEGATIVE Negative Urine Leuk Esterase SMALL Negative Urine RBC 0-2 rbc/hpf 0-2 Urine WBC 10-20 wbc/hpf High 0-7 Urine Epithelial Cells MANY /lpf None Seen 48 Urine Calcium Oxalate Crystals FEW None Seen Urine Bacteria FEW None Seen Urine Mucus MODERATE None Seen Source: URINE, CLEAN CAT <SEE NOTE> 49 CBS W/Automated Diff 07/06/2017 [place] White Blood Count 6.8 K/uL 3.1- 10.7 Red Blood Count 4.18 M/uL 3.90-5.40 Hemoglobin 13.3 gm/dL 11.6-15.8 Hematocrit 38.9 % 36.0-46.1 Mean Cell Volume 93.1 fl 80.9-99.0 Mean Corpuscular HGB 31.8 pg 25.9-32.7 Mean Corpuscular HGB Conc 34.2 g/dL 30.8-34.3 Platelet Count 258 K/uL 150-400 Red Cell Distri Width SD 42.9 fl 3-47 Red Cell Distri Width %CV 13.0 % 11.7-14.4 Mean Platelet Volume 10.8 fL 8.9-12.4 Neut% 58.3 % 40.4-72.8 Lymph % 31.9 % 20.0-42.0 [place] % 8.5 % 4.3-13.2 Eo% 1.0 % 0.0-6.6 Bas% 0.3 % 0.0-1.1 Neut# 3.97 K/uL 1.8-7.0 Lymph # 2.17 K/uL 1.0-4.0 [place] # 0.58 K/uL 0.3-0.9 Eos # 0.07 K/uL 0.0-0.5 Baso # 0.02 K/uL 0.0-0.1 Comprehensive Metabolic Panel 06/29/2017 [place] Glucose 61 mg/dL Low 74 -106 50 BUN 11 mg/dL 7-18 Creatinine 0.9 mg/dL 0.6-1.3 Glom Filtration Rate, Estimate >60 mL/min >60 If >60 mL/min >60 51 BUN/Creat 12.2 ratio Sodium 140 mmol/L 136-145 Potassium 3.6 mmol/L 3.5-5.1 Chloride 104 mmol/L 98-107 Carbon Dioxide 26 mmol/L 21-32 Anion Gap 10 mEq/L 8-16 Calcium 8.8 mg/dL 8.5-10.1 Total Protein 7.7 g/dL 6.4-8.2 Albumin 3.4 g/dL 3.4-5.0 Globulin 4.3 g/dL 1.9-4.3 Alb/Glob 0.8 ratio Bilirubin,Total 0.6 mg/dL 0.2-1.0 Sgot/Ast 22 U/L 15-37 SGPT/Alt 25 U/L 12-78 Alkaline Phosphatase 98 U/L 45-117 Laboratory test 06/29/2017 [place] Urine HCG NEGATIVE Negative 52 finding (Qualitative) CBS W/Automated 06/29/2017 [place] White Blood Count 5.6 K/uL 3.1-10.7 Diff Red Blood Count 4.20 M/uL 3.90-5.40 Hemoglobin 13.3 gm/dL 11.6-15.8 Hematocrit 39.2 % 36.0-46.1 Mean Cell Volume 93.3 fl 80.9-99.0 Mean Corpuscular HGB 31.7 pg 25.9-32.7 Mean Corpuscular HGB Conc 33.9 g/dL 30.8-34.3 Platelet Count 238 K/uL 150-400 Red Cell Distri Width SD 43.2 fl 3-47 Red Cell Distri Width %CV 13.0 % 11.7-14.4 Mean Platelet Volume 9.9 fL 8.9-12.4 Neut% 52.0 % 40.4-72.8 Lymph % 36.3 % 20.0-42.0 [place] % 9.9 % 4.3-13.2 Eo% 1.4 % 0.0-6.6 Bas% 0.4 % 0.0-1.1 Neut# 2.93 K/uL 1.8-7.0 Lymph # 2.05 K/uL 1.0-4.0 [place] # 0.56 K/uL 0.3-0.9 Eos # 0.08 K/uL 0.0-0.5 Baso # 0.02 K/uL 0.0-0.1 Laboratory 06/07/[address] [facility],Serum NEGATIVE (Negative) 53, 54 test finding (Qualitative) CBC Auto Diff 05/27/2017 [facility] White Blood Count 5.9 10^3/uL 3.5-10.8 Red Blood Count 4.19 10^6/uL 4.0-5.4 Hemoglobin 13.2 g/dL 12.0-16.0 Hematocrit 39 % 35-47 Mean Corpuscular Volume 93 fL 80-97 Mean Corpuscular Hemoglobin 31 pg 27-31 Mean Corpuscular HGB Conc 34 g/dL 31-36 Red Cell Distribution Width 13 % 10.5-15 Platelet Count 227 10^3/uL 150-450 Mean Platelet Volume 9 um3 7.4-10.4 Abs Neutrophils 3.5 10^3/uL 1.5-7.7 Abs Lymphocytes 1.9 10^3/uL 1.0-4.8 Abs Monocytes 0.4 10^3/uL 0-0.8 Abs Eosinophils 0.1 10^3/uL 0-0.6 Abs Basophils 0 10^3/uL 0-0.2 Abs Nucleated RBC 0 10^3/uL Granulocyte % 58.5 % 38-83 Lymphocyte % 32.7 % 25-47 Monocyte % 6.9 % 1-9 Eosinophil % 1.4 % 0-6 Basophil % 0.5 % 0-2 Nucleated Red Blood Cells % 0 Comp Metabolic Panel 05/27/2017 [facility] Sodium 135 mmol/L 133- 145 Potassium 4.0 mmol/L 3.5-5.0 Chloride 105 mmol/L 101-111 Co2 Carbon Dioxide 26 mmol/L 22-32 Anion Gap 4 mmol/L 2-11 Glucose 85 mg/dL 70-100 Blood Urea Nitrogen 10 mg/dL 6-24 Creatinine 0.81 mg/dL 0.51-0.95 BUN/Creatinine Ratio 12.3 8-20 Calcium 9.0 mg/dL 8.6-10.3 Total Protein 6.9 g/dL 6.4-8.9 Albumin 3.8 g/dL 3.2-5.2 Globulin 3.1 g/dL 2-4 Albumin/Globulin Ratio 1.2 1-3 Total Bilirubin 1.10 mg/dL High 0.2-1.0 Alkaline Phosphatase 72 U/L 34-104 Alt 10 U/L 7-52 Ast 13 U/L 13-39 Egfr Non- 80.9 >60 Egfr 104.1 >60 55 Laboratory test 05/27/2017 [facility] Hemoglobin A1c 4.8 % 4.0-5.6 56 finding (Glyco HGB) Lipid Profile 05/27/2017 [facility] Triglycerides 152 mg/dL 57 (Trig/Chol/HDL) Cholesterol 213 mg/dL 58 HDL Cholesterol 62.4 mg/dL 59 LDL Cholesterol 120 mg/dL 60 Laboratory 05/27/2017 [facility] TSH (Thyroid 0.74 0.34-5.60 61 test finding Stim Horm) mcIU/mL Laboratory 2017 [place] HIV Screen 4TH Non Non Reactive 62, test finding Gen Reflex Reactive 63 Laboratory 2017 [place] Salicylate < 1.7 mg/dL Low 2.8-20.0 64, test finding 65 Drugs Of 2017 [place] Amphetamines Negative Abuse-Urine (Urine) Screen 7 Barbiturates (Urine) Negative Benzodiazepines (Urine) Negative Cannabinoids (Urine) POSITIVE Cocaine Metabolite (Urine) Negative Methadone (Urine) Negative Opiates (Urine) Negative Urine Cutoffs * 66 Ua RFX Micro & Culture II 2017 [place] Urine Color YELLOW Yellow Urine Clarity CLEAR Clear Urine Glucose - Dipstick NEGATIVE mg/dL Negative Urine Bilirubin - Dipstick NEGATIVE Negative Urine Ketone NEGATIVE mg/dL Negative Urine Specific [place] 1.025 1.010-1.030 Urine Blood NEGATIVE Negative Urine PH 6.0 Low 6.5-7.5 Urine Protein - Dipstick TRACE mg/dL Negative Urine Urobilinogen - Dipstick 0.2 E.U./dL 0.2-1.0 Urine Nitrite - Dipstick NEGATIVE Negative Urine Leuk Esterase NEGATIVE Negative Source: URINE, CLEAN CAT <SEE NOTE> 67 Aot Request 2017 [place] Aot Request Test(s) added 68 Tests to be added: serum qual hcg Comprehensive Metabolic Panel 01/03/2017 [place] Glucose 73 mg/dL Low 74 -106 69 BUN 9 mg/dL 7-18 Creatinine 0.7 mg/dL 0.6-1.3 Glom Filtration Rate, Estimate >60 mL/min >60 If >60 mL/min >60 70 BUN/Creat 12.8 ratio Sodium 139 mmol/L 136-145 Potassium 3.6 mmol/L 3.5-5.1 Chloride 108 mmol/L High 98-107 Carbon Dioxide 25 mmol/L 21-32 Anion Gap 6 mEq/L Low 8-16 Calcium 9.0 mg/dL 8.5-10.1 Total Protein 7.6 g/dL 6.4-8.2 Albumin 3.4 g/dL 3.4-5.0 Globulin 4.2 g/dL 1.9-4.3 Alb/Glob 0.8 ratio Bilirubin,Total 0.2 mg/dL 0.2-1.0 Sgot/Ast 21 U/L 15-37 SGPT/Alt 30 U/L 12-78 Alkaline Phosphatase 97 U/L 45-117 CBS W/Automated Diff 01/03/2017 [place] White Blood Count 6.7 K/uL 3.1- 10.7 Red Blood Count 4.00 M/uL 3.90-5.40 Hemoglobin 12.6 gm/dL 11.6-15.8 Hematocrit 36.6 % 36.0-46.1 Mean Cell Volume 91.5 fl 80.9-99.0 Mean Corpuscular HGB 31.5 pg 25.9-32.7 Mean Corpuscular HGB Conc 34.4 g/dL High 30.8-34.3 Platelet Count 253 K/uL 150-400 Red Cell Distri Width SD 39.5 fl 3-47 Red Cell Distri Width %CV 12.1 % 11.7-14.4 Mean Platelet Volume 9.7 fL 8.9-12.4 Neut% 62.9 % 40.4-72.8 Lymph % 27.4 % 20.0-42.0 [place] % 8.8 % 4.3-13.2 Eo% 0.6 % 0.0-6.6 Bas% 0.3 % 0.0-1.1 Neut# 4.23 K/uL 1.8-7.0 Lymph # 1.84 K/uL 1.0-4.0 [place] # 0.59 K/uL 0.3-0.9 Eos # 0.04 K/uL 0.0-0.5 Baso # 0.02 K/uL 0.0-0.1 Urine HCG 01/03/2017 [place] Urine HCG NEGATIVE Negative 71 (Qualitative) (Qualitative) Source: URINE, CLEAN CAT <SEE NOTE> 72 Urinalysis With Microscopic 01/03/2017 [place] Urine Color YELLOW Yellow Urine Clarity CLOUDY Clear Urine Glucose - Dipstick NEGATIVE mg/dL Negative Urine Bilirubin - Dipstick NEGATIVE Negative Urine Ketone NEGATIVE mg/dL Negative Urine Specific [place] 1.020 1.010-1.030 Urine Blood TRACE Negative Urine PH 8.0 High 6.5-7.5 Urine Protein - Dipstick NEGATIVE mg/dL Negative Urine Urobilinogen - Dipstick 0.2 E.U./dL 0.2-1.0 Urine Nitrite - Dipstick NEGATIVE Negative Urine Leuk Esterase TRACE Negative Urine RBC 2-5 rbc/hpf 0-2 Urine WBC 2-5 wbc/hpf 0-7 Urine Epithelial Cells FEW /lpf None Seen Urine Amorph Sediment LARGE Negative Source: URINE, CLEAN CAT <SEE NOTE> 73 Laboratory test 05/09/2016 [place] Thyroid Stim 1.29 uIU/mL 0.30-4.20 74 finding Hormone Laboratory test 05/09/2016 [place] Treponema Nonreactive Nonreactive 75 finding Antibody [place] Hepatitis 05/09/2016 [place] Hepatitis A Nonreactive Nonreactive 76 Evaluation Antibody IgM Hepatitis B Surface Antigen Nonreactive Nonreactive 77 Hepatitis B Core IgM Nonreactive Nonreactive 78 Hepatitis C Antibody Nonreactive Nonreactive Signal/Cutoff ratio < 0.02 <0.80 79 Genital Culture W/ Gram 05/09/2016 [place] Gram Stain GRAM STAIN SUSPI 80, 81 Stain <SEE NOTE> Gram Stain MANY GRAM VARIAB <SEE NOTE> 82 Gram Stain RARE GR POS. LUCAS <SEE NOTE> 83 Gram Stain NO WHITE BLOOD C <SEE NOTE> 84 Genital Culture GARDNERELLA VAGI <SEE NOTE> 85 Quantity MANY Chlamydia/GC Cammie 05/09/2016 [place] Chlamydia Trachomatis, Negative Negative Cammie Neisseria Gonorrhoeae, Cammie Negative Negative Please note: (SEE NOTE) 86 Laboratory test 05/09/2016 [place] Antibody Nonreactive Nonreactive 87 finding Detection-Hiv1/2 SCRN Urine Culture 12/26/2015 [place] Urine Culture See Note 88 Comprehensive 12/26/2015 [place] Glucose 94 mg/dL 74-106 Metabolic Panel BUN 10 mg/dL 7-18 Creatinine 0.7 mg/dL 0.6-1.3 Glom Filtration Rate, Estimate >60 mL/min >60 If >60 mL/min >60 89 BUN/Creat 14.2 ratio Sodium 136 mmol/L 136-145 Potassium 3.6 mmol/L 3.5-5.1 Chloride 103 mmol/L 98-107 Carbon Dioxide 24 mmol/L 21-32 Anion Gap 9 mEq/L 8-16 Calcium 8.7 mg/dL 8.5-10.1 Total Protein 8.1 g/dL 6.4-8.2 Albumin 3.7 g/dL 3.4-5.0 Globulin 4.4 g/dL High 1.9-4.3 Alb/Glob 0.8 ratio Bilirubin,Total 0.5 mg/dL 0.2-1.0 Sgot/Ast 13 U/L Low 15-37 90 SGPT/Alt 21 U/L 12-78 Alkaline Phosphatase 72 U/L 45-117 CBS W/Automated Diff 12/26/2015 [place] White Blood Count 8.5 K/uL 3.1- 10.7 Red Blood Count 4.46 M/uL 3.90-5.40 Hemoglobin 14.1 gm/dL 11.6-15.8 Hematocrit 41.1 % 36.0-46.1 Mean Cell Volume 92.2 fl 80.9-99.0 Mean Corpuscular HGB 31.6 pg 25.9-32.7 Mean Corpuscular HGB Conc 34.3 g/dL 30.8-34.3 Platelet Count 260 K/uL 155-360 Red Cell Distri Width SD 42.3 fl 3-47 Red Cell Distri Width %CV 12.9 % 11.7-14.4 Mean Platelet Volume 10.0 fL 8.9-12.4 Neut% 76.5 % High 40.4-72.8 Lymph % 16.4 % Low 17.0-46.1 [place] % 6.6 % 4.3-13.2 Eo% 0.1 % 0.0-6.6 Bas% 0.4 % 0.0-1.1 Neut# 6.52 K/uL 1.8-7.0 Lymph # 1.40 K/uL Low 1.8-7.0 [place] # 0.56 K/uL 0.3-0.9 Eos # 0.01 K/uL 0.0-0.5 Baso # 0.03 K/uL 0.0-0.1 Laboratory test finding 12/26/2015 [place] HCG, Quant 3012.0 mIU/mL 91 Differential-WBC 12/26/2015 [place] Total Cells Counted 100 #CELLS Band% 3 % 0-8 Neutrophils% 79 % High 33-73 Lymph% 13 % Low 17-56 Monocyte% 5 % 0-10 Platelet Estimate NORMAL RBC Morphology NORMAL Drugs Of Abuse-Urine Screen 12/26/2015 [place] Amphetamines (Urine) Negative 7 Barbiturates (Urine) Negative Benzodiazepines (Urine) Negative Cannabinoids (Urine) POSITIVE High Cocaine Metabolite (Urine) Negative Methadone (Urine) Negative Opiates (Urine) Negative Urine Cutoffs * 92 Urinalysis With Microscopic 12/26/2015 [place] Urine Color YELLOW Yellow Urine Clarity SL CLOUDY Clear Urine Glucose - Dipstick NEGATIVE mg/dL Negative Urine Bilirubin - Dipstick NEGATIVE Negative Urine Ketone NEGATIVE mg/dL Negative Urine Specific [place] 1.015 1.010-1.030 Urine Blood NEGATIVE Negative Urine PH 7.0 6.5-7.5 Urine Protein - Dipstick NEGATIVE mg/dL Negative Urine Urobilinogen - Dipstick 0.2 E.U./dL 0.2-1.0 Urine Nitrite - Dipstick NEGATIVE Negative Urine Leuk Esterase MODERATE High Negative Urine RBC NONE SEEN rbc/hpf 0-2 Urine WBC 5-10 wbc/hpf 0-7 Urine Epithelial Cells FEW NONESEEN/lpf Urine Bacteria FEW NONESEEN Urine Amorph Sediment MODERATE Negative Urine Screen 12/26/2015 [place] Ua RFX Micro + See Note 93 Culture II Laboratory test 12/26/2015 [place] Urine HCG POSITIVE High Negative finding (Qualitative) Laboratory test 12/26/2015 [place] Aot Request Test(s) added 94 finding Hemoglobin/Hemato 12/26/2015 [place] Hemoglobin 12.7 gm/dL 11.6-15.8 crit Hematocrit 36.8 % 36.0-46.1 Laboratory test 08/14/2015 [facility] Urine Culture SPECIMEN 95 finding 113 [place] CARR DESCRI> (607)- - Laboratory test 08/05/2015 [facility] Urine Culture SEE RESULT 96 finding BELOW Laboratory test 02/13/2015 [facility] TSH,Ultrasensi 0.943 mIU/L ( 0.360 finding 113 [place]UN[place] tive @ -4.170 (607)- - ) 25 Hydroxy Vit D @ 35 ng/mL (31-100) 97 Lipid 02/13/2015 [facility] Cholesterol @ 174 mg/dL (0-200) 113 [place] (607)- - Triglyceride @ 134 mg/dL (30-200) HDL Cholesterol @ 62 mg/dL (>40) 98 Chol/HDL Ratio 2.8 RATIO 99 LDL Chol (Calc) 85 mg/dL (<130) 100 Hemoglobin A1c 02/13/2015 [facility] Hemoglobin A1c @ 4.7 % (4.0-6.0) 113 [place] (607)- - Est Average Glucose 88 mg/dL 101 Laboratory test 02/13/2015 [facility] CRP, Sensitive @ 1.7 mg/L 102 finding 113 [place] BRU[place] (607)- - CMP 02/13/2015 [facility] Sodium 141 mmol/L (136-14 113 [place] 5) (607)- - Potassium 3.5 mmol/L Low (3.6-5.2) Chloride 106 mmol/L (100-108) Co2 26 mmol/L (22-31) Anion Gap 9 mmol/L (7-16) Urea Nitrogen 8 mg/dL (7-24) Creatinine 0.6 mg/dL (0.6-1.0) BUN/Creat Ratio 13.3 RATIO (10.0-20.0) Glucose 75 mg/dL (70-99) Calcium 8.4 mg/dL (8.4-10.2) Total Protein 7.2 g/dL (6.4-8.2) Albumin 3.8 g/dL (3.5-4.6) Globulin 3.4 g/dL (2.7-4.3) Alb/Glob Ratio 1.1 RATIO Alkaline Phosphatase 79 U/L (45-117) Bilirubin,Total 0.3 mg/dL (0.0-1.0) Ast (Sgot) 20 U/L (11-39) Alt (SGPT) 24 U/L (12-78) GFR >90 ml/min/1.73m2 (>59) GFR ( Amer) >90 ml/min/1.73m2 (>59) GFR Interpretation <SEE NOTE> 103 CBC With Diff 02/13/2015 [facility] WBC 6.4 10*3/uL (4.1-11.0) 113 [place] BRUNO (607)- - RBC 4.16 10*6/uL (4.00-5.40) HGB 12.9 g/dL (12.0-16.0) HCT 38.9 % (36.0-47.0) MCV 93.6 fL (80.0-95.0) MCH 31.1 pg (27.0-32.0) MCHC 33.3 g/dL (32.0-36.0) RDW 13.7 % (10.5-14.5) PLT 195 10*3/uL (150-450) MPV 8.8 fL (7.1-10.7) Neut % 56.9 % (35.0-75.0) Lymph % 36.0 % (16.0-52.0) [place] % 6.1 % (0.0-8.0) Eos % 0.6 % (0.0-5.0) Baso % 0.4 % (0.0-4.0) Neut # 3.7 10*3/uL (1.8-7.7) Lymph # 2.3 10*3/uL (1.2-4.8) [place] # 0.4 10*3/uL (0.0-0.8) Eos # 0.0 10*3/uL (0.0-0.5) Baso # 0.0 10*3/uL (0.0-0.2) 1 BACK PAIN, CRAMPS, TYLER, NAUSEA, ON NEW ABX 2 A negative result for either C. trachomatis and/or N. gonorrhoeae does not preclued an infection because results are dependent on adequate specimen collection, absence of inhibitors, and sufficient DNA to be detected. 3 URINE WBC >100/HPF 4 URINE, CLEAN CATCH 5 10,000 - 50,000 CFU/mL 6 Note: Persistent reduction for 3 months or more in an eGFR <60 mL/min/1.73 m2 defines CKD. Patients with eGFR values >/=60 mL/min/1.73 m2 may also have CKD if evidence of persistent proteinuria is present. The original MDRD equation for estimated GFR is not valid for patients less than 18 years of age. Additional information may be found at www.kdoqi.org. 7 Values below the stated reference ranges of AST and ALT can be seen in normal populations. Clinical correlation is suggested. 8 CALLED LIPASE TO VERONICA Scott AT 202402/23/18 by [email or web address] 9 Method: Quidel QuickVue One-Step Immunoassay 10 KIDNEY INFECTION, BACK PAIN, NAUSEA 11 POSSIBLE UROGENITAL CONTAMINATION. 12 URINE, CLEAN CATCH 13 NO GROWTH: FINAL REPORT 14 UTI, BACK PAIN 15 POSSIBLE UROGENITAL CONTAMINATION. 16 URINE, CLEAN CATCH 17 A negative result for either C. trachomatis and/or N. gonorrhoeae does not preclued an infection because results are dependent on adequate specimen collection, absence of inhibitors, and sufficient DNA to be detected. 18 POSSIBLE UROGENITAL CONTAMINATION. 19 URINE, CLEAN CATCH 20 BETA STREPTOCOCCUS GROUP B 21 > 100,000 CFU/mL 22 PENICILLIN OR AMPICILLIN. 23 10,000 - 50,000 CFU/mL 24 [id number] 25 SEE RESULT BELOW Name: DONALD IVAN : [address]: Ricardo Baker MD Acct: [id number] Unit: [id number] AGE: 32 Location: [facility] Re12/22/17 SEX: F Status: DEP ER SPEC: [id number] HECTOR: 12/22/[address]: Maritza Black NP REQ: [id number] RECD: 12/23/17 STATUS: OMKAR HINLKE DR: Alexia Baker MD _ SOURCE: URINE [facility]: ORDERED: Urine Culture COMMENTS: [id number] Procedure Result Reported Site Urine Culture Final 12/24/17- 0755 ML No Growth (<1,000 CFU/mL) * ML - Main Lab . END OF REPORT DEPARTMENT OF PATHOLOGY, [address] [place] [id number] Haim Pratt M.D. Director [facility] # [id number] 26 Shopping Inspector: [id number] UTI, BLOOD IN URINE 28 URINE, CLEAN CATCH 29 10,000 - 50,000 CFU/mL 30 ACUTE PYELONEPHRITIS 31 Note: Persistent reduction for 3 months or more in an eGFR <60 mL/min/1.73 m2 defines CKD. Patients with eGFR values >/=60 mL/min/1.73 m2 may also have CKD if evidence of persistent proteinuria is present. The original MDRD equation for estimated GFR is not valid for patients less than 18 years of age. Additional information may be found at www.kdoqi.org. 32 Values below the stated reference ranges of AST and ALT can be seen in normal populations. Clinical correlation is suggested. 33 POSSIBLE UROGENITAL CONTAMINATION. 34 URINE, CLEAN CATCH 35 10,000 - 50,000 CFU/mL 36 NO GROWTH: FINAL REPORT 37 NO GROWTH: FINAL REPORT 38 Performed at: [address] [id number] Neck Band Operator: Carlitos George MD, Phone: [phone] 39 Note: Persistent reduction for 3 months or more in an eGFR <60 mL/min/1.73 m2 defines CKD. Patients with eGFR values >/=60 mL/min/1.73 m2 may also have CKD if evidence of persistent proteinuria is present. The original MDRD equation for estimated GFR is not valid for patients less than 18 years of age. Additional information may be found at www.kdoqi.org. 40 Values below the stated reference ranges of AST and ALT can be seen in normal populations. Clinical correlation is suggested. 41 NO GROWTH: FINAL REPORT 42 NO GROWTH: FINAL REPORT 43 A negative result for either C. trachomatis and/or N. gonorrhoeae does not preclued an infection because results are dependent on adequate specimen collection, absence of inhibitors, and sufficient DNA to be detected. 44 NOTE: A NON-REACTIVE RESULT INDICATES THAT HIV-1 (HTLV III) ANTIBODIES HAVE NOT BEEN FOUND IN THIS PATIENT SPECIMEN. A NON-REACTIVE RESULT, HOWEVER, DOES NOT PRECLUDE PREVIOUS EXPOSURE OF INFECTION WITH HIV-1. * [place] STATE LAW PROHIBITS THE REDISCLOSURE OF THIS RESULT * * TO ANY UNAUTHORIZED CONSTITUTION PARTY. * Method: Uni-Gold Recombigen HIV 1/2 Rapid Immunoassay 5skills 45 MIXED URETHRAL JOSSELIN 46 > 100,000 CFU/mL SPECIMEN IS A MIX OF GRAM NEGATIVE AND GRAM POSITIVE ORGANISMS. UNABLE TO DETERMINE WHICH ORGANISMS ARE FROM THE URINARY TRACT OR THE RESULT OF SKIN VAGINAL PERIANAL CONTAMINATION DURING COLLECTION. SUGGEST REPEAT SPECIMEN IF CLINICALLY INDICATED. 47 KIDNEY INF, BACK HURTS, FEVER, THROWING UP 48 POSSIBLE UROGENITAL CONTAMINATION. 49 URINE, CLEAN CATCH 50 POSS UTI, HAVING PAIN, X4 DAYS 51 Note: Persistent reduction for 3 months or more in an eGFR <60 mL/min/1.73 m2 defines CKD. Patients with eGFR values >/=60 mL/min/1.73 m2 may also have CKD if evidence of persistent proteinuria is present. The original MDRD equation for estimated GFR is not valid for patients less than 18 years of age. Additional information may be found at www.kdoqi.org. 52 FIRST MORNING SPECIMENS GENERALLY CONTAIN THE HIGHEST CONCENTRATION OF HCG AND ARE RECOMMENDED FOR EARLY DETECTION OF . Method: Quidel QuickVue One-Step Immunoassay 53 MIGRAINE, NAUSEA 54 Method: Quidel QuickVue One-Step Immunoassay 55 Because ethnic data is not always readily available, this report includes an eGFR for both -Americans and non- Americans. The National Kidney Disease Education Program (NKDEP) does not endorse the use of the MDRD equation for patients that are not between the ages of 18 and 70, are , have extremes of body size, muscle mass, or nutritional status, or are non- or non-. According to the National Kidney Foundation, irrespective of diagnosis, the stage of the disease is based on the level of kidney function: Stage Description GFR(mL/min/1.73 m(2)) 1 Kidney damage with normal or decreased GFR 90 2 Kidney damage with mild decrease in GFR 60-89 3 Moderate decrease in GFR 30-59 4 Severe decrease in GFR 15-29 5 Kidney failure <15 (or dialysis) 56 Therapeutic target for the treatment of diabetes mellitus patients is <7% HBA1C, and in selective patients <6.0%. Please refer to [place] [employer] diabetic care guidelines for further information. 57 Desirable: <150 Borderline High: 150-199 High: 200-499 Very High: >500 58 Desirable: <200 Borderline High: 200-239 High: >239 59 Low: <40 Desirable: 40-60 High: >60 60 Desirable: <100 Near Optimal: 100-129 Borderline High: 130-159 High: 160-189 Very High: >189 61 [id number] 62 PSYCH SERVICES 63 Performed at: RN - [facility] [address] [id number] Neck Band Operator: Anaid Walker MD, Phone: [phone] EVAL 65 THERAPEUTIC RANGE: 15-30 mg/dL POTENTIAL TOXICITY VARIES WITH TIME FROM INGESTION. PLEASE CONSULT APPROPRIATE NOMOGRAM. 66 URINE SPECIMENS ARE SCREENED AT THE LISTED CUTOFFS DRUG CLASS INITIAL TEST LEVEL Amphetamines 1000 ng/mL Barbiturates 200 ng/mL Benzodiazepines 200 ng/mL Cannabinoids 50 ng/mL Cocaine Metabolite 300 ng/mL Methadone 300 ng/mL Opiates 300 ng/mL Any PRESUMPTIVE POSITIVE findings are UNCONFIRMED. Confirmatory testing is suggested if findings are unexpected. Please contact laboratory if confirmatory testing is desired. SPECIMENS ARE HELD FOR 72 HOURS. 67 URINE, CLEAN CATCH 68 Tests: serum qual hcg Instructions: 69 ABD NORMAL VAGINAL BLEEDING, BACK PAIN, WEAK 70 Note: Persistent reduction for 3 months or more in an eGFR <60 mL/min/1.73 m2 defines CKD. Patients with eGFR values >/=60 mL/min/1.73 m2 may also have CKD if evidence of persistent proteinuria is present. The original MDRD equation for estimated GFR is not valid for patients less than 18 years of age. Additional information may be found at www.kdoqi.org. 71 FIRST MORNING SPECIMENS GENERALLY CONTAIN THE HIGHEST CONCENTRATION OF HCG AND ARE RECOMMENDED FOR EARLY DETECTION OF . Method: Quidel QuickVue One-Step Immunoassay 72 URINE, CLEAN CATCH 73 URINE, CLEAN CATCH 74 Z11.3 Z84.89 75 Please Note: A nonreactive test result does not exclude the possibility of exposure to, or infection with syphilis. T. pallidum antibodies may be undetectable in some stages of the infection and in some clinical conditions. 76 IgM antibodies to HAV not detected; does not exclude early acute or recovered HAV infection. 77 HBsAg not detected; does not exclude the possibility of exposure to or early acute infections with HBV. 78 IgM anti-HBc not detected. Does not exclude the possibility of exposure to or infection with HBV. 79 Antibodies to HCV not detected; does not exclude early acute HCV infection. 80 Z11.3 Z84.89 A64 81 GRAM STAIN SUSPICIOUS FOR BACTERIAL VAGINOSIS 82 MANY GRAM VARIABLE COCCOBACILLI [address] POS[address] BACILLI SUGGESTIVE OF LACTOBACILLUS SP. 84 NO WHITE BLOOD CELLS 85 GARDNERELLA VAGINALIS 86 A negative result for either C. trachomatis and/or N. gonorrhoeae does not preclued an infection because results are dependent on adequate specimen collection, absence of inhibitors, and sufficient DNA to be detected. A negative result for either C. trachomatis and/or N. gonorrhoeae does not preclued an infection because results are dependent on adequate specimen collection, absence of inhibitors, and sufficient DNA to be detected. 87 NOTE: A NON-REACTIVE RESULT INDICATES THAT HIV-1 AND HIV-2 ANTIBODIES HAVE NOT BEEN FOUND IN THIS PATIENT SPECIMEN. A NON-REACTIVE RESULT, HOWEVER, DOES NOT PRECLUDE PREVIOUS EXPOSURE OF INFECTION WITH HIV. * [place] STATE LAW PROHIBITS THE REDISCLOSURE OF THIS RESULT * * TO ANY UNAUTHORIZED CONSTITUTION PARTY. * 88 Organism 1 ! URETHRAL JOSSELIN Quantity ! 50,000 - 100,000 CFU/mL 89 Note: Persistent reduction for 3 months or more in an eGFR <60 mL/min/1.73 m2 defines CKD. Patients with eGFR values >/=60 mL/min/1.73 m2 may also have CKD if evidence of persistent proteinuria is present. The original MDRD equation for estimated GFR is not valid for patients less than 18 years of age. Additional information may be found at [email or web address]. 90 Values below the stated reference ranges of AST and ALT can be seen in normal populations. Clinical correlation is suggested. 91 Approximate Gestational Age and Total BHCG Range: 0.2 - 1 Week........................5-50 mIU/mL 1 - 2 Weeks.....................50-500 mIU/mL 2 - 3 Weeks..................100-5,000 mIU/mL 3 - 4 Weeks.................500-10,000 mIU/mL 4 - 5 Weeks...............1,000-50,000 mIU/mL 5 - 6 Weeks.............10,000-100,000 mIU/mL 6 - 8 Weeks.............15,000-200,000 mIU/mL 2 - 3 Months............10,000-100,000 mIU/mL 92 URINE SPECIMENS ARE SCREENED AT THE [facility] INITIAL TEST LEVEL Amphetamines 1000 ng/mL Barbiturates 200 ng/mL Benzodiazepines 200 ng/mL Cannabinoids 50 ng/mL Cocaine Metabolite 300 ng/mL Methadone 300 ng/mL Opiates 300 ng/mL Any POSITIVE findings are UNCONFIRMED. Confirmatory testing is suggested if findings are unexpected. Please contact laboratory if confirmatory testing is desired. SPECIMENS ARE HELD FOR 72 HOURS. 93 12/26/15 LAB.DWM Deleted by [facility] [place] 94 Tests: manual diff on cbc Instructions: 95 SPECIMEN DESCRIPTION BLADDER URINE CULTURE RESULTS MIXED UROGENITAL JOSSELIN; PLEASE SUBMIT A NEW SPEC IMEN IF CLINICALLY INDICATED. REPORT STATUS FINAL 08/16/2015 96 SEE RESULT BELOW Name: DONALD IVAN : [address]: Dennis Chanel MD Acct: [id number] Unit: [id number] AGE: 30 Location: [facility] Re08/05/15 SEX: F Status: DEP ER SPEC: [id number] HECTOR: 08/05/15-[address] [facility] [address]: Dennis Chanel MD REQ: [id number] RECD: 08/06/15 STATUS: OMKAR HINKLE DR: [facility] Lisbet Higgins [place] _ SOURCE: URINE SPDESC: ORDERED: Urine Culture Procedure Result Reported Site Urine Culture Final 08/08/15- 0910 ML Organism 1 ESCHERICHIA COLI [place] Count 10-25,000 (Moderate) CFU/ML 1. ESCHERICHIA COLI M.I.C. RX --------- ------ Ampicillin 8 S Cefazolin <=4 S Cefepime <=1 S Ceftriaxone <=1 S Ciprofloxacin <=0.25 S Gentamicin <=1 S Levofloxacin <=0.12 S Meropenem <=0.25 S Nitrofurantoin <=16 S Tetracycline <=1 S Pipercillin/Tazobactam <=4 S Trimethoprim/Sulfamethoxazole <=20 S Amoxicillin/Clavulanic Acid 4 S Aztreonam <=1 S Contact the Microbiology Department for any additional antibiotic reporting. * ML - MAIN LAB ([facility]) . END OF REPORT * ML=Testing performed at Main Lab DEPARTMENT OF PATHOLOGY, [address] [place] [address] Haim Pratt M.D. Director [facility] # [id number] 97 A REVIEW OF THE LITERATURE SUGGESTS THE FOLLOWING RANGES FOR THE CLASSIFICATION OF 25-OH VITAMIN D STATUS: VITAMIN D STATUS 25-OH VITAMIN D DEFICIENCY <20 NG/ML INSUFFICIENCY 20-30 NG/ML SUFFICIENCY 31 - 100 NG/ML TOXICITY > 100 NG/ML A PEDIATRIC REFERENCE RANGE HAS NOT BEEN ESTABLISHED USING THIS METHOD. 98 PER NCEP ATP III GUIDELINES: RESULTS LOWER THAN 40 MG/DL ARE SUGGESTIVE OF INCREASED RISK FOR CORONARY ARTERY DISEASE. RESULTS > OR=TO 60 MG/DL ARE CONSIDERED A NEGATIVE RISK FACTOR. 99 INTERPRETATION OF CHOL-HDL RATIO CHD RISK FEMALE MALE VERY HIGH >8.3 >14.3 HIGH 5.6- 8.3 6.7- 14.3 AVERAGE 3.7- 5.6 4.0- 6.7 BELOW AVERAGE 2.5- 3.7 2.7- 4.0 PROTECTED <2.5 <2.7 100 PER NCEP ATP III GUIDELINES: OPTIMAL < 100 NEAR OPTIMAL 100 - 129 BORDERLINE HIGH 130 - 159 HIGH 160 - 189 VERY HIGH > 189 101 HEMOGLOBIN A1c INTERPRETATION: 4.0-6.0% GOOD GLYCEMIC CONTROL 6.1-6.5% AT RISK FOR HYPERGLYCEMIA >6.5% DIABETIC/ POOR GLYCEMIC CONTROL REFERENCE: DIABETES CARE 32(7), 2008 IF A1c RESULT IS INCONSISTENT WITH CLINICAL ESTIMATES OF GLYCEMIC CONTROL, AN INTERFERING Hb VARIANT SHOULD BE CONSIDERED. 102 RELATIVE RISK CATEGORY AND AVERAGE hs-CRP LEVEL: LOW RISK < 1.0 MG/L AVERAGE RISK 1.0 to 3.0 MG/L HIGH RISK > 3.0 MG/L 103 NORMAL KIDNEY FUNCTION OR MILD DISEASE - GFR >OR=60 CHRONIC KIDNEY DISEASE - GFR 15 - 59 RENAL FAILURE - GFR <15 Est. GFR calculation based on the MDRD study equation, which assumes a steady state for creatinine. Est. GFR should not be used for medication dosing. 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 disc degeneration, lumbosacral region M54.2 Cervicalgia F31.81 Bipolar II disorder F41.9 Anxiety disorder, unspecified G43.119 Migraine with aura, intractable, without status migrainosus G47.00 Insomnia, unspecified L20.9 Atopic dermatitis, unspecified J30.9 Allergic rhinitis, unspecified M79.606 Pain in leg, unspecified N20.0 Calculus of kidney Office Visit 09/08/2017 11:45a [facility] Jack, Nayeliesthela M51.37 Other intervertebral M., M.D. disc degeneration, lumbosacral region M54.2 Cervicalgia F31.81 Bipolar II disorder F41.9 Anxiety disorder, unspecified G43.119 Migraine with aura, intractable, without status migrainosus G47.00 Insomnia, unspecified L20.9 Atopic dermatitis, unspecified J30.9 Allergic rhinitis, unspecified M79.606 Pain in leg, unspecified Z00.01 Encounter for general adult medical exam w abnormal findings Z68.28 Body mass index (BMI) 28.0-28.9, adult Z79.891 intermediate (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 analgesic R11.0 Nausea Office Visit 08/05/2017 1:45p [facility] White, Heri M51.37 Other intervertebral [place] disc degeneration, lumbosacral region M54.2 Cervicalgia F31.81 Bipolar II disorder Z79.891 intermediate (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 analgesic Office Visit 07/10/2017 11:00a Heri Denny [place]NER M51.37 Other intervertebral disc degeneration, lumbosacral region M54.2 Cervicalgia F31.81 Bipolar II disorder 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 N39.0 Urinary tract infection, site not specified F41.9 Anxiety disorder, unspecified Office Visit 06/24/2017 3:15p [facility] Heri Higgins M51.37 Other intervertebral [place] disc degeneration, lumbosacral region M54.2 Cervicalgia F31.81 Bipolar II disorder Z79.891 intermediate (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 analgesic F41.9 Anxiety disorder, unspecified G43.119 Migraine with aura, intractable, without status migrainosus Office Visit 06/10/2017 3:00p [facility] Heri Higgins G43.119 Migraine with aura, CO[place]NER intractable, without status migrainosus M54.2 Cervicalgia M51.37 Other intervertebral disc degeneration, lumbosacral region F31.81 Bipolar II disorder Office Visit 05/27/2017 11:00a [facility] Heri HigginsP M54.2 Cervicalgia M51.37 Other intervertebral disc degeneration, lumbosacral region F31.81 Bipolar II disorder Z79.891 intermediate (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 analgesic F41.9 Anxiety disorder, unspecified N76.0 Acute vaginitis Office Visit 05/13/2017 3:45p [facility] Heri HigginsP M54.2 Cervicalgia M51.37 Other intervertebral disc degeneration, lumbosacral region F31.81 Bipolar II disorder 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 Office Visit 04/29/2017 10:00a [facility] Heri HigginsP M54.2 Cervicalgia M51.37 Other intervertebral disc degeneration, lumbosacral region F31.81 Bipolar II disorder Z79.891 intermediate (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 analgesic Office Visit 04/15/2017 4:15p [facility] Heri HigginsP M54.2 Cervicalgia M54.2 Cervicalgia M51.37 Other intervertebral disc degeneration, 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, lumbosacral region F31.81 Bipolar II disorder F31.81 Bipolar II disorder Office Visit 03/23/2017 1:45p [facility] Heri HigginsP M54.2 Cervicalgia M51.37 Other intervertebral disc degeneration, lumbosacral region F31.81 Bipolar II disorder 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 F41.9 Anxiety disorder, unspecified G47.00 Insomnia, unspecified Office Visit 02/18/2017 10:30a [facility] Heri HigginsP M54.2 Cervicalgia M51.37 Other intervertebral disc degeneration, lumbosacral region F31.81 Bipolar II disorder Z79.891 intermediate (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 analgesic Office Visit 02/04/2017 10:00a [facility] Heri HigginsP M54.2 Cervicalgia M51.37 Other intervertebral disc degeneration, lumbosacral region F41.9 Anxiety disorder, unspecified F31.81 Bipolar II disorder 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 Office Visit 12/17/2016 4:30p [facility] Heri HigginsP M54.2 Cervicalgia M51.37 Other intervertebral disc degeneration, lumbosacral region F41.9 Anxiety disorder, unspecified F31.81 Bipolar II disorder Office Visit 10/29/2016 10:30a [facility] Heri HigginsP R51 Headache M51.37 Other intervertebral disc degeneration, lumbosacral region M54.2 Cervicalgia F41.9 Anxiety disorder, unspecified F31.81 Bipolar II disorder Office Visit 10/03/2016 11:30a Heri DennyP R51 Headache M51.37 Other intervertebral disc degeneration, lumbosacral region M54.2 Cervicalgia F41.9 Anxiety disorder, unspecified F31.81 Bipolar II disorder Office Visit 09/16/2016 11:45a Heri DennyP R51 Headache M51.37 Other intervertebral disc degeneration, lumbosacral region G47.00 Insomnia, unspecified F41.9 Anxiety disorder, unspecified F31.81 Bipolar II disorder Office Visit 09/04/2016 1:30p Heri DennyP J06.9 Acute upper respiratory infection, unspecified R05 Cough R06.2 Wheezing R50.9 Fever, unspecified F33.1 Major depressive disorder, recurrent, moderate M51.37 Other intervertebral disc degeneration, lumbosacral region G47.00 Insomnia, unspecified Office Visit 08/12/2016 11:30a Heri DennyP M51.37 Other intervertebral disc degeneration, lumbosacral region M79.606 Pain in leg, unspecified F41.9 Anxiety disorder, unspecified G47.00 Insomnia, unspecified F31.81 Bipolar II disorder S06.0x0A Concussion without loss of consciousness, initial encounter Office Visit 07/08/2016 3:00p Heri DennyP M51.37 Other intervertebral disc degeneration, lumbosacral region M79.606 Pain in leg, unspecified F41.9 Anxiety disorder, unspecified G47.00 Insomnia, unspecified F31.81 Bipolar II disorder Office Visit 06/10/2016 9:30a Heri DennyP M51.37 Other intervertebral disc degeneration, lumbosacral region M79.606 Pain in leg, unspecified F41.9 Anxiety disorder, unspecified G47.00 Insomnia, unspecified F31.81 Bipolar II disorder Office Visit 05/06/2016 10:00a Heri DennyP O00.1 Tubal M51.37 Other intervertebral disc degeneration, lumbosacral region M79.606 Pain in leg, unspecified F41.9 Anxiety disorder, unspecified G47.00 Insomnia, unspecified F31.81 Bipolar II disorder Office Visit 04/11/2016 11:30a Heri DennyP O00.1 Tubal M51.37 Other intervertebral disc degeneration, lumbosacral region M79.606 Pain in leg, unspecified F41.9 Anxiety disorder, unspecified F33.1 Major depressive disorder, recurrent, moderate G47.00 Insomnia, unspecified Office Visit 02/26/2016 2:30p Heri DennyP O00.1 Tubal M51.37 Other intervertebral disc degeneration, lumbosacral region M79.606 Pain in leg, unspecified F31.81 Bipolar II disorder F41.9 Anxiety disorder, unspecified F33.1 Major depressive disorder, recurrent, moderate Office Visit 01/08/2016 3:15p Heri DennyP O00.1 Tubal M51.37 Other intervertebral disc degeneration, lumbosacral region M79.606 Pain in leg, unspecified F31.81 Bipolar II disorder Office Visit 11/30/2015 4:00p Lisbet Horneredith Michealglenn Garcia M51.37 Other intervertebral M.D. disc degeneration, lumbosacral region M79.606 Pain in leg, unspecified F31.81 Bipolar II disorder G47.00 Insomnia, unspecified L20.9 Atopic dermatitis, unspecified J30.9 Allergic rhinitis, unspecified Office Visit 08/14/2015 10:45a Heri DennyP M54.5 Low back pain M54.30 Sciatica, unspecified side M51.36 Other intervertebral disc degeneration, lumbar region R35.0 Frequency of micturition Office Visit 06/19/2015 4:00p Heri DennyP M54.30 Sciatica, unspecified side M54.5 Low back pain M51.36 Other intervertebral disc degeneration, lumbar region Office Visit 06/05/2015 10:45a Heri DennyP M54.5 Low back pain M25.559 Pain in unspecified hip M54.30 Sciatica, unspecified side Office Visit 05/31/2015 10:00a Heri DennyP M54.5 Low back pain M25.559 Pain in unspecified hip M54.30 Sciatica, unspecified side Office Visit 02/13/2015 3:00p Heri Denny [place] 300.00 Anxiety State Unspec 311 Depressive Disorder Not Elsewhere Spec V70.0 Examination General Medical Routine AT Health Care Facility V72.62 Laboratory Exam Ordered as Part Of Routine General Med Exam 780.52 Insomnia Unspecified Plan of Treatment 05/03/2018 - Carlitos Morales N.P.M51.37 Other intervertebral disc degeneration, lumbosacral regionNew Labs:CBC With Diff, Ordered: 05/03/18CMP, Ordered: Comments:EXERCISE/HEAT /MESSAGEAVOID HEAVY LIFTING WT LOSSTYLENOL OR MOTRIN PRN DUR MFEIZGJK76.2 CervicalgiaComments:EXERCISE/HEAT /MESSAGEAVOID HEAVY LIFTING WT LOSSTYLENOL OR MOTRIN PRN DUR OEJDWSAV02.81 Bipolar II disorderNew Labs:TSH, Ultrasenstive, Ordered: 05/03/18Comments:COUNCELLING AND REASSURANCE RELAXATION TECHNIQUES DISCUSSED COUNSELED RE: STRESSORS IN LIFEF41.9 Anxiety disorder, unspecifiedComments:COUNCELLING AND REASSURANCE RELAXATION TECHNIQUES DISCUSSEDCOUNSELED RE: STRESSORS IN LIFE AVOID ALLENERGY/ HIGH CAFFEINE DRINKS DUR BUBLYLVI26.119 Migraine with aura, intractable, without status migrainosusComments:COUNCELLING AND REASSURANCE F/U WITH NEUROLOGY PRNG47.00 Insomnia, unspecifiedComments:COUNCELLING AND REASSURANCE RELAXATION TECHNIQUES DISCUSSED COUNSELED RE: STRESSORS IN LIFE TYLENOLPM OR MOTRIN PM PRN DUR QGDAUDLI29.9 Atopic dermatitis, unspecifiedComments:SKIN CARE INSTRUCTIONS LOTION OR BABY OIL 2-3 APPLICATION PER DAYUSE MOISTURIZING SOAPAVOID PROLONGED WATER EXPOSUREAVOID USING HOT WATER IN FCKONTI90.9 Allergic rhinitis, unspecifiedComments:INCREASE PO FLUID USE ANTIHISTAMINE PRN SECOND HAND SMOKING AFQAUNJIDA36.606 Pain in leg, unspecifiedNew Labs:Sed Rate, Ordered : 05/03/18Rheumatoid Factor, Ordered: 05/03/18Comments:TYLENOL OR MOTRIN PRN EXERCISE/HEAT/MESSAGE DUR CLSDQOHB61.0 Calculus of kidneyNew Labs:Uric Acid, Ordered: 05/03/18Comments:STABLE F/U WITH UROLOGY PRNE55.9 Vitamin D deficiency , unspecifiedNew Labs:Vitamin D 25 Hydroxy, Ordered: 05/03/18Comments:INCREASE EXPOSURE TO SUNREVIEW OF DIETE66.3 OverweightNew Labs:Lipid, Ordered: Hemoglobin A1c, Ordered: 05/03/18Comments:EXERCISE REGURALYDIET ZQVLOCSHVUPO00.1 Other chronic pancreatitisNew Labs:Lipase, Ordered: Amylase, Ordered: 05/03/18Comments:AVOID ETOH ABUSE SMOKING CESSATIONF/U WITH GI
--- OUTSIDE RECORDS SUMMARY | 2018-05-12 09:32 | XMS REPORT | Continuity of Care Document ---
:1985 External Reference #:[id number] Author Name Carlitos Morales N.P. Address [address] [facility] [address] [place] [address] Care Team Providers Name Role Phone Alexia Santiago MD Care Team Information Data Sciences Director Unavailable Payers Type Date Identification Numbers Payment Provider Subscriber Policy Number: [id number] [facility] Donald Ivan PayID: [id number] [address] [place] [address] Policy Number: [id number] Medicaid/[employer] Donald Ivan PayID: [id number] [address] [place] [address] Advance Directives Description No Information Available Problems [...] is a former smoker Smoking Status Reviewed: 04/26/18 Patient is a former smoker Allergies, Adverse [...] every 3 M.D. hour as needed [facility]79.[facility] - Hx Kit 10&20&40mg Samples F31.81 [facility] Nakul Garcia Ativan - Hx Tablets 1mg 45tabs 1 tab by 1.81 [facility] 04/15/2017 mouth three Nakul Garcia times a day as needed G47.00 Cyclobenzaprine HCL - Hx Tablets 10mg Unknown 11/30/2015 Hydrocodone-Acetaminophen - Hx Tablets 5-325mg Alexia Santiago, 05/31/2015 M.DLeonardo Immunizations CPT Code Status Date Vaccine Lot # [id number] Refused 06/10/2016 Flu Vaccine 92274 Refused 06/19/2015 Flu Vaccine Vital Signs Date Vital Result Comment 04/26/2018 3:57pm BP Systolic 118 mmHg BP [...] Test Result H/L Range Note Chlmaydia/GC/Tr 02/23/2018 [place] Trichomonas vaginalis POSITIVE Negative 1 ichomonas PCR PCR Chlamydia trachomatis, PCR Negative Negative Neisseria gonorrhoeae, PCR Negative Negative 2 Urinalysis With Microscopic 02/23/2018 [place] Urine Color YELLOW Yellow Urine Clarity SL CLOUDY Clear Urine Glucose - Dipstick NEGATIVE mg/dL Negative Urine Bilirubin - Dipstick NEGATIVE Negative Urine Ketone NEGATIVE mg/dL Negative Urine Specific [place] 1.010 1.010-1.030 Urine Blood NEGATIVE Negative Urine [...] CAT <SEE NOTE> 4 Urine Culture 02/23/2018 [place] Urine Culture URETHRAL JOSSELIN Quantity 10,000 - 50,000 <SEE NOTE> 5 CBS W/Automated Diff 02/23/2018 [place] White Blood Count 8.1 K/uL 3.1- 10.7 [...] % 40.4-72.8 Lymph % 28.8 % 20.0-42.0 [place] % 8.1 % 4.3-13.2 Eo% 0.7 % 0.0-6.6 Bas% 0.2 % 0.0-1.1 Neut# 5.01 K/uL 1.8-7.0 Lymph # 2.32 K/uL 1.0-4.0 [place] # 0.65 K/uL 0.3-0.9 Eos # 0.06 K/uL 0.0-0.5 Baso # 0.02 K/uL 0.0-0.1 Comprehensive Metabolic Panel 02/23/2018 [place] Glucose 81 mg/dL 74- 106 BUN 9 [...] 93 U/L 45-117 Laboratory test finding 02/23/2018 [place] Lipase 841 U/L High 56-289 8 HCG,Serum (Qualitative) NEGATIVE (Negative) 9 Urinalysis With Microscopic 02/21/2018 [place] Urine Color YELLOW Yellow 10 Urine Clarity CLOUDY Clear Urine Glucose - Dipstick NEGATIVE mg/dL Negative Urine Bilirubin - Dipstick NEGATIVE Negative Urine Ketone NEGATIVE mg/dL Negative Urine Specific [place] >=1.030 1.010-1.030 Urine Blood SMALL Negative Urine [...] CAT <SEE NOTE> 12 Laboratory test 02/21/2018 [place] Urine Culture NO GROWTH: FINAL 13 finding <SEE NOTE> Urine Culture 02/14/2018 [place] Urine Culture BETA STREPTOCOCC 14, 15 <SEE NOTE> Quantity > 100,000 CFU/mL 16 Recommended Therapy: PENICILLIN OR AM <SEE NOTE> 17 Urine Culture URETHRAL JOSSELIN Quantity 10,000 - 50,000 <SEE NOTE> 18 Urinalysis With Microscopic 02/14/2018 [place] Urine Color YELLOW Yellow Urine Clarity CLOUDY Clear Urine Glucose - Dipstick NEGATIVE mg/dL Negative Urine Bilirubin - Dipstick NEGATIVE Negative Urine Ketone NEGATIVE mg/dL Negative Urine Specific [place] 1.010 1.010-1.030 Urine Blood TRACE Negative Urine PH 6.0 Low 6.5-7.5 Urine Protein - Dipstick TRACE mg/dL Negative Urine Urobilinogen - Dipstick 0.2 E.U./dL 0.2-1.0 Urine Nitrite - Dipstick NEGATIVE Negative Urine Leuk Esterase LARGE Negative Urine RBC 2-5 rbc/hpf 0-2 Urine WBC > 50 wbc/hpf High 0-7 Urine Epithelial Cells MANY /lpf None Seen 19 Urine Bacteria MODERATE None Seen Source: URINE, CLEAN CAT <SEE NOTE> 20 Lactic Acid 02/14/2018 [place] Lactic Acid 0.5 mmol/L 0.4-1.9 Lab Reflex >2.0 for Sepsis? Y CBS W/Automated Diff 02/14/2018 [place] White Blood Count 8.1 K/uL 3.1- 10.7 [...] % 40.4-72.8 Lymph % 21.8 % 20.0-42.0 [place] % 9.1 % 4.3-13.2 Eo% 1.6 % 0.0-6.6 Bas% 0.2 % 0.0-1.1 Neut# 5.46 K/uL 1.8-7.0 Lymph # 1.77 K/uL 1.0-4.0 [place] # 0.74 K/uL 0.3-0.9 Eos # 0.13 K/uL 0.0-0.5 Baso # 0.02 K/uL 0.0-0.1 Chlam/GC/Trichomonas PCR, 02/14/2018 [place] Ur Trichomonas POSITIVE Negative Ur vaginalis,PCR Ur Chlamydia trachomatis,PCR Negative Negative Ur Neisseria gonorrhoeae,PCR Negative Negative 21 Urinalysis With Microscopic 02/14/2018 [place] Urine Color YELLOW Yellow Urine Clarity SL CLOUDY Clear Urine Glucose - Dipstick NEGATIVE mg/dL Negative Urine Bilirubin - Dipstick NEGATIVE Negative Urine Ketone NEGATIVE mg/dL Negative Urine Specific [place] <=1.005 Low 1.010-1.030 Urine Blood TRACE Negative Urine PH 5.5 Low 6.5-7.5 Urine Protein - Dipstick NEGATIVE mg/dL Negative Urine Urobilinogen - Dipstick 0.2 E.U./dL 0.2-1.0 Urine Nitrite - Dipstick NEGATIVE Negative Urine Leuk Esterase LARGE Negative Urine RBC NONE SEEN rbc/hpf 0-2 Urine WBC 30-50 wbc/hpf High 0-7 Urine Epithelial Cells MODERATE /lpf None Seen 22 Urine Bacteria VERY FEW None Seen Source: URINE, CLEAN CAT <SEE NOTE> 23 Urine Culture And 12/22/2017 [facility] Urine SEE RESULT 24, 25 Sensitivities Culture BELOW Poc Urinalysis 12/22/2017 [facility] Poc Glucose, Negative Negative Urine Poc Bilirubin, Urine Negative Negative Poc Ketone, Urine Negative Negative Poc Specific [place], Urine >=1.030 1.010-1.030 Poc Blood, Urine 3+ Negative Poc pH, Urine 6.0 5-9 Poc Protein, Urine 3+ Negative Poc Urobilinogen, Urine 0.2 Negative Poc Nitrite, Urine Negative Negative Poc Leukocytes, Urine 3+ Negative Poc Color, Urine Yellow Poc Clarity, Urine Clear 26 CBS W/Automated Diff 07/22/2017 [place] White Blood Count 7.6 K/uL 3.1- 10.7 [...] % 40.4-72.8 Lymph % 23.6 % 20.0-42.0 [place] % 7.6 % 4.3-13.2 Eo% 1.0 % 0.0-6.6 Bas% 0.3 % 0.0-1.1 Neut# 5.16 K/uL 1.8-7.0 Lymph # 1.80 K/uL 1.0-4.0 [place] # 0.58 K/uL 0.3-0.9 Eos # 0.08 K/uL 0.0-0.5 Baso # 0.02 K/uL 0.0-0.1 Urinalysis With Microscopic 07/22/2017 [place] Urine Color YELLOW Yellow Urine Clarity SL CLOUDY Clear Urine Glucose - Dipstick NEGATIVE mg/dL Negative Urine Bilirubin - Dipstick NEGATIVE Negative Urine Ketone NEGATIVE mg/dL Negative Urine Specific [place] >=1.030 1.010-1.030 Urine Blood LARGE Negative Urine [...] CAT <SEE NOTE> 28 Urine Culture 07/22/2017 [place] Urine Culture URETHRAL JOSSELIN Quantity 10,000 - 50,000 <SEE NOTE> 29 Urine Culture 07/08/2017 [place] Urine Culture URETHRAL JOSSELIN 30 Quantity 10,000 - 50,000 <SEE NOTE> 31 Urinalysis With Microscopic 07/08/2017 [place] Urine Color YELLOW Yellow Urine Clarity CLEAR Clear Urine Glucose - Dipstick NEGATIVE mg/dL Negative Urine Bilirubin - Dipstick NEGATIVE Negative Urine Ketone NEGATIVE mg/dL Negative Urine Specific [place] <=1.005 Low 1.010-1.030 Urine Blood LARGE Negative Urine PH 6.0 Low 6.5-7.5 Urine Protein - Dipstick NEGATIVE mg/dL Negative Urine Urobilinogen - Dipstick 0.2 E.U./dL 0.2-1.0 Urine Nitrite - Dipstick NEGATIVE Negative Urine Leuk Esterase MODERATE Negative Urine RBC 5-10 rbc/hpf High 0-2 Urine WBC 20-30 wbc/hpf High 0-7 Urine Epithelial Cells MANY /lpf None Seen 32 Urine Bacteria FEW None Seen Urine Fine Gran Cast 0-2 #/lpf None Seen Source: URINE, CLEAN CAT <SEE NOTE> 33 Comprehensive Metabolic Panel 07/08/2017 [place] Glucose 84 mg/dL 74- 106 BUN 3 mg/dL Low 7-18 Creatinine 0.6 mg/dL 0.6-1.3 Glom Filtration Rate, Estimate >60 mL/min >60 If >60 mL/min >60 34 BUN/Creat 5.0 ratio Sodium 141 mmol/L 136-145 Potassium 3.5 mmol/L 3.5-5.1 Chloride 111 mmol/L High 98-107 Carbon Dioxide 25 mmol/L 21-32 Anion Gap 5 mEq/L Low 8-16 Calcium 7.8 mg/dL Low 8.5-10.1 Total Protein 6.3 g/dL Low 6.4-8.2 Albumin 2.8 g/dL Low 3.4-5.0 Globulin 3.5 g/dL 1.9-4.3 Alb/Glob 0.8 ratio Bilirubin,Total 0.2 mg/dL 0.2-1.0 Sgot/Ast 14 U/L Low 15-37 35 SGPT/Alt 20 U/L 12-78 Alkaline Phosphatase 76 U/L 45-117 CBS W/Automated Diff 07/08/2017 [place] White Blood Count 3.4 K/uL 3.1- 10.7 Red Blood Count 3.69 M/uL Low 3.90-5.40 [...] % 40.4-72.8 Lymph % 26.5 % 20.0-42.0 [place] % 10.5 % 4.3-13.2 Eo% 0.6 % 0.0-6.6 Bas% 0.3 % 0.0-1.1 Neut# 2.13 K/uL 1.8-7.0 Lymph # 0.91 K/uL Low 1.0-4.0 [place] # 0.36 K/uL 0.3-0.9 Eos # 0.02 K/uL 0.0-0.5 Baso # 0.01 K/uL 0.0-0.1 Laboratory test 07/07/2017 [place] Treponema Antibody Negative Negative 36 finding [place] Laboratory test 07/07/2017 [place] Rapid Abdet Non-Reactive 37 finding Chlamydia/GC Cammie, 07/07/2017 [place] Chlamydia Negative Negative Urine Trachomatis,Ur -PCR Neisseria Gonorrhoeae,Ur -PCR Negative Negative 38 Blood Culture 07/07/2017 [place] Blood Culture Aerobic NO GROWTH: FINAL < SEE 39 NOTE> Blood Culture Anaerobic NO GROWTH: FINAL <SEE NOTE> 40 Laboratory test finding 07/07/2017 [place] Magnesium 1.8 mg/dL 1.8-2.4 Comprehensive Metabolic Panel 07/07/2017 [place] Glucose 103 mg/dL 74- 106 BUN 7 mg/dL 7-18 Creatinine 0.6 mg/dL 0.6-1.3 Glom Filtration Rate, Estimate >60 mL/min >60 If >60 mL/min >60 41 BUN/Creat 11.6 ratio Sodium 141 mmol/L 136-145 Potassium 3.6 mmol/L 3.5-5.1 Chloride 112 mmol/L High 98-107 Carbon Dioxide 24 mmol/L 21-32 Anion Gap 5 mEq/L Low 8-16 Calcium 7.3 mg/dL Low 8.5-10.1 Total Protein 5.5 g/dL Low 6.4-8.2 Albumin 2.4 g/dL Low 3.4-5.0 Globulin 3.1 g/dL 1.9-4.3 Alb/Glob 0.8 ratio Bilirubin,Total 0.1 mg/dL Low 0.2-1.0 Sgot/Ast 11 U/L Low 15-37 42 SGPT/Alt 19 U/L 12-78 Alkaline Phosphatase 67 U/L 45-117 Lactic Acid 07/07/2017 [place] Lactic Acid 0.6 mmol/L 0.4-1.9 Lab Reflex >2.0 for Sepsis? Y CBS W/Automated Diff 07/07/2017 [place] White Blood Count 4.6 K/uL 3.1- 10.7 [...] % 40.4-72.8 Lymph % 26.1 % 20.0-42.0 [place] % 8.1 % 4.3-13.2 Eo% 1.5 % 0.0-6.6 Bas% 0.2 % 0.0-1.1 Neut# 2.94 K/uL 1.8-7.0 Lymph # 1.20 K/uL 1.0-4.0 [place] # 0.37 K/uL 0.3-0.9 Eos # 0.07 K/uL 0.0-0.5 Baso # 0.01 K/uL 0.0-0.1 Blood Culture 07/07/2017 [place] Blood Culture Aerobic NO GROWTH: FINAL < SEE 43 NOTE> Blood Culture Anaerobic NO GROWTH: FINAL <SEE NOTE> 44 CBS W/Automated Diff 07/06/2017 [place] White Blood Count 6.8 K/uL 3.1- 10.7 45 Red Blood Count 4.18 M/uL 3.90-5.40 Hemoglobin [...] % 40.4-72.8 Lymph % 31.9 % 20.0-42.0 [place] % 8.5 % 4.3-13.2 Eo% 1.0 % 0.0-6.6 Bas% 0.3 % 0.0-1.1 Neut# 3.97 K/uL 1.8-7.0 Lymph # 2.17 K/uL 1.0-4.0 [place] # 0.58 K/uL 0.3-0.9 Eos # 0.07 K/uL 0.0-0.5 Baso # 0.02 K/uL 0.0-0.1 Urinalysis With Microscopic 07/06/2017 [place] Urine Color YELLOW Yellow Urine Clarity CLOUDY Clear Urine Glucose - Dipstick NEGATIVE mg/dL Negative Urine Bilirubin - Dipstick NEGATIVE Negative Urine Ketone NEGATIVE mg/dL Negative Urine Specific [place] 1.025 1.010-1.030 Urine Blood TRACE Negative Urine PH 6.0 Low 6.5-7.5 Urine Protein - Dipstick TRACE mg/dL Negative Urine Urobilinogen - Dipstick 0.2 E.U./dL 0.2-1.0 Urine Nitrite - Dipstick NEGATIVE Negative Urine Leuk Esterase SMALL Negative Urine RBC 0-2 rbc/hpf 0-2 Urine WBC 10-20 wbc/hpf High 0-7 Urine Epithelial Cells MANY /lpf None Seen 46 Urine Calcium Oxalate Crystals FEW None Seen Urine Bacteria FEW None Seen Urine Mucus MODERATE None Seen Source: URINE, CLEAN CAT <SEE NOTE> 47 Urine Culture 07/06/2017 [place] Urine Culture MIXED URETHRAL F <SEE 48, 49 NOTE> Quantity > 100,000 CFU/mL 50 CBS W/Automated Diff 06/29/2017 [place] White Blood Count 5.6 K/uL 3.1- 10.7 51 Red Blood Count 4.20 M/uL 3.90-5.40 Hemoglobin [...] % 40.4-72.8 Lymph % 36.3 % 20.0-42.0 [place] % 9.9 % 4.3-13.2 Eo% 1.4 % 0.0-6.6 Bas% 0.4 % 0.0-1.1 Neut# 2.93 K/uL 1.8-7.0 Lymph # 2.05 K/uL 1.0-4.0 [place] # 0.56 K/uL 0.3-0.9 Eos # 0.08 K/uL 0.0-0.5 Baso # 0.02 K/uL 0.0-0.1 Comprehensive Metabolic Panel 06/29/2017 [place] Glucose 61 mg/dL Low 74 -106 BUN 11 mg/dL 7-18 Creatinine 0.9 mg/dL 0.6-1.3 Glom Filtration Rate, Estimate >60 mL/min >60 If >60 mL/min >60 52 BUN/Creat 12.2 ratio Sodium 140 mmol/L 136-145 Potassium 3.6 mmol/L 3.5-5.1 Chloride 104 mmol/L 98-107 Carbon Dioxide 26 mmol/L 21-32 Anion Gap 10 mEq/L 8-16 Calcium 8.8 mg/dL 8.5-10.1 Total Protein 7.7 g/dL 6.4-8.2 Albumin 3.4 g/dL 3.4-5.0 Globulin 4.3 g/dL 1.9-4.3 Alb/Glob 0.8 ratio Bilirubin,Total 0.6 mg/dL 0.2-1.0 Sgot/Ast 22 U/L 15-37 SGPT/Alt 25 U/L 12-78 Alkaline Phosphatase 98 U/L 45-117 Laboratory 06/29/2017 [place] Urine HCG NEGATIVE Negative 53 test finding (Qualitative) Laboratory 06/07/2017 [place] HCG,Serum NEGATIVE (Negative) 54, 55 test finding (Qualitative) Laboratory 05/27/2017 [facility] TSH (Thyroid Stim 0.74 mcIU/mL 0.34 -5.60 56 test finding Horm) Lipid Profile 05/27/2017 [facility] Triglycerides 152 mg/dL 57 (Trig/Chol/HDL ) Cholesterol 213 mg/dL 58 HDL Cholesterol 62.4 mg/dL 59 LDL Cholesterol 120 mg/dL 60 Laboratory test 05/27/2017 [facility] Hemoglobin A1c 4.8 % 4.0-5.6 61 finding (Glyco HGB) Comp Metabolic 05/27/2017 [facility] Sodium 135 mmol/L 133-145 Panel Potassium 4.0 mmol/L 3.5-5.0 Chloride 105 mmol/L [...] Egfr Non- 80.9 >60 Egfr 104.1 >60 62 CBC Auto Diff 05/27/2017 [facility] White Blood Count 5.9 10^3/uL 3.5-10.8 [...] 0-2 Nucleated Red Blood Cells % 0 Aot Request 2017 [place] Aot Request Test(s) added 63, 64 Tests to be added: serum qual hcg Ua RFX Micro & Culture II 2017 [place] Urine Color YELLOW Yellow Urine Clarity CLEAR Clear Urine Glucose - Dipstick NEGATIVE mg/dL Negative Urine Bilirubin - Dipstick NEGATIVE Negative Urine Ketone NEGATIVE mg/dL Negative Urine Specific [place] 1.025 1.010-1.030 Urine Blood NEGATIVE Negative Urine PH 6.0 Low 6.5-7.5 Urine Protein - Dipstick TRACE mg/dL Negative Urine Urobilinogen - Dipstick 0.2 E.U./dL 0.2-1.0 Urine Nitrite - Dipstick NEGATIVE Negative Urine Leuk Esterase NEGATIVE Negative Source: URINE, CLEAN CAT <SEE NOTE> 65 Drugs Of Abuse-Urine Screen 2017 [place] Amphetamines (Urine) Negative 7 Barbiturates (Urine) Negative Benzodiazepines (Urine) Negative Cannabinoids (Urine) POSITIVE Cocaine Metabolite (Urine) Negative Methadone (Urine) Negative Opiates (Urine) Negative Urine Cutoffs * 66 Laboratory test 2017 [place] Salicylate < 1.7 mg/dL Low 2.8-20.0 67 finding Laboratory test 2017 [place] HIV Screen 4TH Non Reactive Non Reactive 68, 69 finding Gen Reflex Comprehensive 01/03/2017 [place] Glucose 73 mg/dL Low 74-106 70 Metabolic Panel BUN 9 mg/dL 7-18 Creatinine 0.7 mg/dL 0.6-1.3 Glom Filtration Rate, Estimate >60 mL/min >60 If >60 mL/min >60 71 BUN/Creat 12.8 ratio Sodium 139 mmol/L 136-145 [...] 97 U/L 45-117 CBS W/Automated Diff 01/03/2017 [place] White Blood Count 6.7 K/uL 3.1- 10.7 [...] % 40.4-72.8 Lymph % 27.4 % 20.0-42.0 [place] % 8.8 % 4.3-13.2 Eo% 0.6 % 0.0-6.6 Bas% 0.3 % 0.0-1.1 Neut# 4.23 K/uL 1.8-7.0 Lymph # 1.84 K/uL 1.0-4.0 [place] # 0.59 K/uL 0.3-0.9 Eos # 0.04 K/uL 0.0-0.5 Baso # 0.02 K/uL 0.0-0.1 Urine HCG 01/03/2017 [place] Urine HCG NEGATIVE Negative 72 (Qualitative) (Qualitative) Source: URINE, CLEAN CAT <SEE NOTE> 73 Urinalysis With Microscopic 01/03/2017 [place] Urine Color YELLOW Yellow Urine Clarity CLOUDY Clear Urine Glucose - Dipstick NEGATIVE mg/dL Negative Urine Bilirubin - Dipstick NEGATIVE Negative Urine Ketone NEGATIVE mg/dL Negative Urine Specific [place] 1.020 1.010-1.030 Urine Blood TRACE Negative Urine [...] Negative Source: URINE, CLEAN CAT <SEE NOTE> 74 Genital Culture W/ Gram 05/09/2016 [place] Gram Stain GRAM STAIN SUSPI 75, 76 Stain <SEE NOTE> Gram Stain MANY GRAM VARIAB <SEE NOTE> 77 Gram Stain RARE GR POS. LUCAS <SEE NOTE> 78 Gram Stain NO WHITE BLOOD C <SEE NOTE> 79 Genital Culture GARDNERELLA VAGI <SEE NOTE> 80 Quantity MANY Chlamydia/GC Cammie 05/09/2016 [place] Chlamydia Trachomatis, Negative Negative Cammie Neisseria Gonorrhoeae, Cammie Negative Negative Please note: (SEE NOTE) 81 Laboratory 05/09/2016 [place] Antibody Nonreactive Nonreactive 82 test finding Detection-Hiv1/2 SCRN Hepatitis 05/09/2016 [place] Hepatitis A Nonreactive Nonreactive 83, Evaluation Antibody IgM 84 Hepatitis B Surface Antigen Nonreactive Nonreactive 85 Hepatitis B Core IgM Nonreactive Nonreactive 86 Hepatitis C Antibody Nonreactive Nonreactive Signal/Cutoff ratio < 0.02 <0.80 87 Laboratory test 05/09/2016 [place] Treponema Antibody Nonreactive Nonreactive 88 finding [place] Laboratory test 05/09/2016 [place] Thyroid Stim 1.29 uIU/mL 0.30-4.20 finding Hormone Drugs Of 12/26/2015 [place] Amphetamines Negative Abuse-Urine (Urine) Screen 7 Barbiturates (Urine) Negative Benzodiazepines (Urine) Negative Cannabinoids (Urine) POSITIVE High Cocaine Metabolite (Urine) Negative Methadone (Urine) Negative Opiates (Urine) Negative Urine Cutoffs * 89 Differential-WBC 12/26/2015 [place] Total Cells Counted 100 #CELLS Band% 3 % 0-8 Neutrophils% 79 % High 33-73 Lymph% 13 % Low 17-56 Monocyte% 5 % 0-10 Platelet Estimate NORMAL RBC Morphology NORMAL Laboratory test 12/26/2015 [place] HCG, Quant 3012.0 mIU/mL 90 finding CBS W/Automated Diff 12/26/2015 [place] White Blood 8.5 K/uL 3.1-10.7 Count Red Blood Count 4.46 M/uL 3.90-5.40 Hemoglobin [...] 40.4-72.8 Lymph % 16.4 % Low 17.0-46.1 [place] % 6.6 % 4.3-13.2 Eo% 0.1 % 0.0-6.6 Bas% 0.4 % 0.0-1.1 Neut# 6.52 K/uL 1.8-7.0 Lymph # 1.40 K/uL Low 1.8-7.0 [place] # 0.56 K/uL 0.3-0.9 Eos # 0.01 K/uL 0.0-0.5 Baso # 0.03 K/uL 0.0-0.1 Comprehensive Metabolic Panel 12/26/2015 [place] Glucose 94 mg/dL 74- 106 BUN 10 mg/dL 7-18 Creatinine 0.7 mg/dL 0.6-1.3 Glom Filtration Rate, Estimate >60 mL/min >60 If >60 mL/min >60 91 BUN/Creat 14.2 ratio Sodium 136 mmol/L 136-145 Potassium 3.6 mmol/L 3.5-5.1 Chloride 103 mmol/L 98-107 Carbon Dioxide 24 mmol/L 21-32 Anion Gap 9 mEq/L 8-16 Calcium 8.7 mg/dL 8.5-10.1 Total Protein 8.1 g/dL 6.4-8.2 Albumin 3.7 g/dL 3.4-5.0 Globulin 4.4 g/dL High 1.9-4.3 Alb/Glob 0.8 ratio Bilirubin,Total 0.5 mg/dL 0.2-1.0 Sgot/Ast 13 U/L Low 15-37 92 SGPT/Alt 21 U/L 12-78 Alkaline Phosphatase 72 U/L 45-117 Urine Culture 12/26/2015 [place] Urine Culture See Note 93 Urinalysis With Microscopic 12/26/2015 [place] Urine Color YELLOW Yellow Urine Clarity SL CLOUDY Clear Urine Glucose - Dipstick NEGATIVE mg/dL Negative Urine Bilirubin - Dipstick NEGATIVE Negative Urine Ketone NEGATIVE mg/dL Negative Urine Specific [place] 1.015 1.010-1.030 Urine Blood NEGATIVE Negative Urine [...] Amorph Sediment MODERATE Negative Urine Screen 12/26/2015 [place] Ua RFX Micro + See Note 94 Culture II Hemoglobin/Hematoc 12/26/2015 [place] Hemoglobin 12.7 gm/dL 11.6-15.8 rit Hematocrit 36.8 % 36.0-46.1 Laboratory test 12/26/2015 [place] Aot Request Test(s) 95 finding added Laboratory test 12/26/2015 [place] Urine HCG POSITIVE High Negative finding (Qualitative ) Laboratory test 08/14/2015 [email or web address] Urine SPECIMEN 96 finding 113 [place] C[place] Culture DESCRI> (607)- - Laboratory test 08/05/2015 [facility] Urine SEE RESULT 97 finding Culture BELOW Laboratory test 02/13/2015 [facility] TSH,Ultrasen 0.943 mIU/L (0.360- 4.170 finding 113 [place] C[place] sitive @ ) (607)- - 25 Hydroxy Vit D @ 35 ng/mL (31-100) 98 Lipid 02/13/2015 [facility] Cholesterol @ 174 mg/dL (0-200) 113 [place] (607)- - Triglyceride @ 134 mg/dL (30-200) HDL Cholesterol @ 62 mg/dL (>40) 99 Chol/HDL Ratio 2.8 RATIO 100 LDL Chol (Calc) 85 mg/dL (<130) 101 Hemoglobin A1c 02/13/2015 [facility] Hemoglobin A1c @ 4.7 % (4.0-6.0) 113 [place] (607)- - Est Average Glucose 88 mg/dL 102 Laboratory test 02/13/2015 [facility] CRP, Sensitive @ 1.7 mg/L 103 finding 113 [place] (607)- - CMP 02/13/2015 [facility] Sodium 141 mmol/L (136-14 113 [place] [...] >90 ml/min/1.73m2 (>59) GFR Interpretation <SEE NOTE> 104 CBC With Diff 02/13/2015 [facility] WBC 6.4 10*3/uL (4.1-11.0) 113 [place] (607)- - RBC 4.16 10*6/uL (4.00-5.40) HGB 12.9 g/dL (12.0-16.0) HCT 38.9 % (36.0-47.0) MCV 93.6 fL (80.0-95.0) MCH 31.1 pg (27.0-32.0) MCHC 33.3 g/dL (32.0-36.0) RDW 13.7 % (10.5-14.5) PLT 195 10*3/uL (150-450) MPV 8.8 fL (7.1-10.7) Neut % 56.9 % (35.0-75.0) Lymph % 36.0 % (16.0-52.0) [place]ade % 6.1 % (0.0-8.0) Eos % 0.6 % (0.0-5.0) Baso % 0.4 % (0.0-4.0) Neut # 3.7 10*3/uL (1.8-7.7) Lymph # 2.3 10*3/uL (1.2-4.8) Dade # 0.4 10*3/uL (0.0-0.8) Eos # 0.0 [...] FINAL REPORT 14 UTI, BACK PAIN 15 BETA STREPTOCOCCUS GROUP B 16 > 100,000 CFU/mL 17 PENICILLIN OR AMPICILLIN. 18 10,000 - 50,000 CFU/mL 19 POSSIBLE UROGENITAL CONTAMINATION. 20 URINE, CLEAN CATCH 21 A negative result for either C. trachomatis and/or N. gonorrhoeae does not preclued an infection because results are dependent on adequate specimen collection, absence of inhibitors, and sufficient DNA to be detected. 22 POSSIBLE UROGENITAL CONTAMINATION. 23 URINE, CLEAN CATCH 24 [id number] 25 SEE RESULT BELOW Name: DONALD IVAN : [address]: Ricardo Baker MD Acct: [id number] Unit: [id number] AGE: 32 Location: [facility] Re12/22/17 SEX: F Status: DEP ER SPEC: [id number] HECTOR: 12/22/[address]: Maritza Black NP REQ: [id number] RECD: 12/23/17 STATUS: OMKAR HINKLE DR: Alexia Baker MD _ [facility]: Urine Culture COMMENTS: [id number] Procedure Result Reported Site Urine Culture Final 12/24/17- 0755 ML No Growth (<1,000 CFU/mL) * ML - Main Lab . END OF REPORT DEPARTMENT OF PATHOLOGY, [address] [place] [address] Haim Pratt M.D. Director [facility] # [id number] 26 [employer] Research Engineer: [id number] 27 UTI, BLOOD IN URINE 28 URINE, CLEAN CATCH 29 10,000 - 50,000 CFU/mL 30 ACUTE PYELONEPHRITIS 31 10,000 - 50,000 CFU/mL 32 POSSIBLE UROGENITAL CONTAMINATION. 33 URINE, CLEAN CATCH 34 Note: Persistent reduction for 3 months or more in an eGFR <60 mL/min/1.73 m2 defines CKD. Patients with eGFR values >/=60 mL/min/1.73 m2 may also have CKD if evidence of persistent proteinuria is present. The original MDRD equation for estimated GFR is not valid for patients less than 18 years of age. Additional information may be found at www.kdoqi.org. 35 Values below the stated reference ranges of AST and ALT can be seen in normal populations. Clinical correlation is suggested. 36 Performed at: [address] [id number] Research Laboratory Specialist: Carlitos George MD, Phone: [phone] 37 NOTE: A NON-REACTIVE RESULT INDICATES THAT HIV-1 (HTLV III) ANTIBODIES HAVE NOT BEEN FOUND IN THIS PATIENT SPECIMEN. A NON-REACTIVE RESULT, HOWEVER, DOES NOT PRECLUDE PREVIOUS EXPOSURE OF INFECTION WITH HIV-1. * [place] STATE LAW PROHIBITS THE REDISCLOSURE OF THIS RESULT * * TO ANY UNAUTHORIZED LIBERTARIAN. * Method: [employer] Recombigen HIV 1/2 Rapid Immunoassay [employer] 38 A negative result for either C. trachomatis and/or N. gonorrhoeae does not preclued an infection because results are dependent on adequate specimen collection, absence of inhibitors, and sufficient DNA to be detected. 39 NO GROWTH: FINAL REPORT 40 NO GROWTH: FINAL REPORT 41 Note: Persistent reduction for 3 months or more in an eGFR <60 mL/min/1.73 m2 defines CKD. Patients with eGFR values >/=60 mL/min/1.73 m2 may also have CKD if evidence of persistent proteinuria is present. The original MDRD equation for estimated GFR is not valid for patients less than 18 years of age. Additional information may be found at [email or web address]. 42 Values below the stated reference ranges of AST and ALT can be seen in normal populations. Clinical correlation is suggested. 43 NO GROWTH: FINAL REPORT 44 NO GROWTH: FINAL REPORT 45 KIDNEY INF, BACK HURTS, FEVER, THROWING UP 46 POSSIBLE UROGENITAL CONTAMINATION. 47 URINE, CLEAN CATCH 48 ACUTE PYELONEPHRITIS 49 MIXED URETHRAL JOSSELIN 50 > 100,000 CFU/mL SPECIMEN IS A MIX OF GRAM NEGATIVE AND GRAM POSITIVE ORGANISMS. UNABLE TO DETERMINE WHICH ORGANISMS ARE FROM THE URINARY TRACT OR THE RESULT OF SKIN VAGINAL PERIANAL CONTAMINATION DURING COLLECTION. SUGGEST REPEAT SPECIMEN IF CLINICALLY INDICATED. 51 POSS UTI, HAVING PAIN, X4 DAYS 52 Note: Persistent reduction for 3 months or more in an eGFR <60 mL/min/1.73 m2 defines CKD. Patients with eGFR values >/=60 mL/min/1.73 m2 may also have CKD if evidence of persistent proteinuria is present. The original MDRD equation for estimated GFR is not valid for patients less than 18 years of age. Additional information may be found at [email or web address]. 53 FIRST MORNING SPECIMENS GENERALLY CONTAIN THE HIGHEST CONCENTRATION OF HCG AND ARE RECOMMENDED FOR EARLY DETECTION OF . Method: Quidel QuickVue One-Step Immunoassay 54 MIGRAINE, NAUSEA 55 Method: Quidel QuickVue One-Step Immunoassay 56 [id number] 57 Desirable: <150 Borderline High: 150-199 High: 200-499 Very High: >500 58 Desirable: <200 Borderline High: 200-239 High: >239 59 Low: <40 Desirable: 40-60 High: >60 60 Desirable: <100 Near Optimal: 100-129 Borderline High: 130-159 High: 160-189 Very High: >189 61 Therapeutic target for the treatment of diabetes mellitus patients is <7% HBA1C, and in selective patients <6.0%. Please refer to [place] [employer] diabetic care guidelines for further information. 62 Because ethnic data is not always readily [...] 15-29 5 Kidney failure <15 (or dialysis) 63 EVAL 64 Tests: serum qual hcg Instructions: 65 URINE, CLEAN CATCH 66 URINE SPECIMENS ARE SCREENED AT THE [...] SPECIMENS ARE HELD FOR 72 HOURS. 67 THERAPEUTIC RANGE: 15-30 mg/dL POTENTIAL TOXICITY VARIES WITH TIME FROM INGESTION. PLEASE CONSULT APPROPRIATE NOMOGRAM. 68 PSYCH SERVICES 69 Performed at: RN - [facility] [address] [id number] Research Laboratory Specialist: Anaid Walker MD, Phone: [phone] 70 ABD NORMAL VAGINAL BLEEDING, BACK PAIN, WEAK 71 Note: Persistent reduction for 3 months or more in an eGFR <60 mL/min/1.73 m2 defines CKD. Patients with eGFR values >/=60 mL/min/1.73 m2 may also have CKD if evidence of persistent proteinuria is present. The original MDRD equation for estimated GFR is not valid for patients less than 18 years of age. Additional information may be found at www.kdoqi.org. 72 FIRST MORNING SPECIMENS GENERALLY CONTAIN THE HIGHEST CONCENTRATION OF HCG AND ARE RECOMMENDED FOR EARLY DETECTION OF . Method: Quidel QuickVue One-Step Immunoassay 73 URINE, CLEAN CATCH 74 URINE, CLEAN CATCH 75 Z11.3 Z84.89 A64 76 GRAM STAIN SUSPICIOUS FOR BACTERIAL VAGINOSIS 77 MANY GRAM VARIABLE COCCOBACILLI 78 R[address] POS. BACILLI SUGGESTIVE OF LACTOBACILLUS SP. 79 NO WHITE BLOOD CELLS 80 GARDNERELLA VAGINALIS 81 A negative result for either C. trachomatis [...] inhibitors, and sufficient DNA to be detected. 82 NOTE: A NON-REACTIVE RESULT INDICATES THAT HIV-1 AND HIV-2 ANTIBODIES HAVE NOT BEEN FOUND IN THIS PATIENT SPECIMEN. A NON-REACTIVE RESULT, HOWEVER, DOES NOT PRECLUDE PREVIOUS EXPOSURE OF INFECTION WITH HIV. * [place] STATE LAW PROHIBITS THE REDISCLOSURE OF THIS RESULT * * TO ANY UNAUTHORIZED LIBERTARIAN. * 83 Z11.3 Z84.89 84 IgM antibodies to HAV not detected; does not exclude early acute or recovered HAV infection. 85 HBsAg not detected; does not exclude the possibility of exposure to or early acute infections with HBV. 86 IgM anti-HBc not detected. Does not exclude the possibility of exposure to or infection with HBV. 87 Antibodies to HCV not detected; does not exclude early acute HCV infection. 88 Please Note: A nonreactive test result does not exclude the possibility of exposure to, or infection with syphilis. T. pallidum antibodies may be undetectable in some stages of the infection and in some clinical conditions. 89 URINE SPECIMENS ARE SCREENED AT THE LISTED CUTOFFS DRUG CLASS INITIAL TEST LEVEL Amphetamines 1000 ng/mL Barbiturates 200 ng/mL Benzodiazepines 200 ng/mL Cannabinoids 50 ng/mL Cocaine Metabolite 300 ng/mL Methadone 300 ng/mL Opiates 300 ng/mL Any POSITIVE findings are UNCONFIRMED. Confirmatory testing is suggested if findings are unexpected. Please contact laboratory if confirmatory testing is desired. SPECIMENS ARE HELD FOR 72 HOURS. 90 Approximate Gestational Age and Total BHCG Range: 0.2 - 1 Week........................5-50 mIU/mL 1 - 2 Weeks.....................50-500 mIU/mL 2 - 3 Weeks..................100-5,000 mIU/mL 3 - 4 Weeks.................500-10,000 mIU/mL 4 - 5 Weeks...............1,000-50,000 mIU/mL 5 - 6 Weeks.............10,000-100,000 mIU/mL 6 - 8 Weeks.............15,000-200,000 mIU/mL 2 - 3 Months............10,000-100,000 mIU/mL 91 Note: Persistent reduction for 3 months or more in an eGFR <60 mL/min/1.73 m2 defines CKD. Patients with eGFR values >/=60 mL/min/1.73 m2 may also have CKD if evidence of persistent proteinuria is present. The original MDRD equation for estimated GFR is not valid for patients less than 18 years of age. Additional information may be found at www.kdoqi.org. 92 Values below the stated reference ranges of AST and ALT can be seen in normal populations. Clinical correlation is suggested. 93 Organism 1 ! URETHRAL JOSSELIN Quantity ! 50,000 - 100,000 CFU/mL 94 12/26/15 LAB.DWM Deleted by [facility] Group [facility] 95 Tests: manual diff on cbc Instructions: 96 SPECIMEN DESCRIPTION BLADDER URINE CULTURE RESULTS MIXED UROGENITAL JOSSELIN; PLEASE SUBMIT A NEW SPEC IMEN IF CLINICALLY INDICATED. REPORT STATUS FINAL 08/16/2015 97 SEE RESULT BELOW Name: DONALD IVAN : [address]: Dennis Chanel MD Acct: [id number] Unit: [id number] AGE: 30 Location: [facility] Re08/05/15 SEX: F Status: DEP ER SPEC: [id number] HECTOR: 08/05/15-[address] [facility] [address]: Dennis Chanel MD REQ: [id number] RECD: 08/06/15-9 STATUS: OMKAR HINKLE DR: [facility] Lisbet Higgins MANAGER CARE _ SOURCE: URINE SPDESC: ORDERED: Urine Culture Procedure Result Reported Site Urine Culture Final 08/08/15- 0910 ML Organism 1 ESCHERICHIA COLI [place] Count 10-25,000 (Moderate) CFU/ML 1. ESCHERICHIA COLI [...] antibiotic reporting. * ML - MAIN LAB ([facility]) . END OF REPORT * ML=Testing performed at Main Lab DEPARTMENT OF PATHOLOGY, [address] [place] [address] Haim Pratt M.D. Director [facility] # [id number] 98 A REVIEW OF THE LITERATURE SUGGESTS THE FOLLOWING RANGES FOR THE CLASSIFICATION OF 25-OH VITAMIN D STATUS: VITAMIN D STATUS 25-OH VITAMIN D DEFICIENCY <20 NG/ML INSUFFICIENCY 20-30 NG/ML SUFFICIENCY 31 - 100 NG/ML TOXICITY > 100 NG/ML A PEDIATRIC REFERENCE RANGE HAS NOT BEEN ESTABLISHED USING THIS METHOD. 99 PER NCEP ATP III GUIDELINES: RESULTS LOWER THAN 40 MG/DL ARE SUGGESTIVE OF INCREASED RISK FOR CORONARY ARTERY DISEASE. RESULTS > OR=TO 60 MG/DL ARE CONSIDERED A NEGATIVE RISK FACTOR. 100 INTERPRETATION OF CHOL-HDL RATIO CHD RISK FEMALE MALE VERY HIGH >8.3 >14.3 HIGH 5.6- 8.3 6.7- 14.3 AVERAGE 3.7- 5.6 4.0- 6.7 BELOW AVERAGE 2.5- 3.7 2.7- 4.0 PROTECTED <2.5 <2.7 101 PER NCEP ATP III GUIDELINES: OPTIMAL < 100 NEAR OPTIMAL 100 - 129 BORDERLINE HIGH 130 - 159 HIGH 160 - 189 VERY HIGH > 189 102 HEMOGLOBIN A1c INTERPRETATION: 4.0-6.0% GOOD GLYCEMIC CONTROL 6.1-6.5% AT RISK FOR HYPERGLYCEMIA >6.5% DIABETIC/ POOR GLYCEMIC CONTROL REFERENCE: DIABETES CARE 32(7), 2008 IF A1c RESULT IS INCONSISTENT WITH CLINICAL ESTIMATES OF GLYCEMIC CONTROL, AN INTERFERING Hb VARIANT SHOULD BE CONSIDERED. 103 RELATIVE RISK CATEGORY AND AVERAGE hs-CRP LEVEL: LOW RISK < 1.0 MG/L AVERAGE RISK 1.0 to 3.0 MG/L HIGH RISK > 3.0 MG/L 104 NORMAL KIDNEY FUNCTION OR MILD DISEASE - GFR >OR=60 CHRONIC KIDNEY DISEASE - GFR 15 - 59 RENAL FAILURE - GFR <15 Est. GFR calculation based on the MDRD study equation, which assumes a steady state for creatinine. Est. GFR should not be used for medication dosing. 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 disc degeneration, lumbosacral region M54.2 Cervicalgia F31.81 Bipolar II disorder F41.9 Anxiety disorder, unspecified G43.119 Migraine with aura, intractable, without status migrainosus G47.00 Insomnia, unspecified L20.9 Atopic dermatitis, unspecified J30.9 Allergic rhinitis, unspecified M79.606 Pain in leg, unspecified N20.0 Calculus of kidney Office Visit 09/08/2017 11:45a [place] [facility] Alexia Santiago M51.37 Other intervertebral M., M.D. 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.891 intermediate (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 analgesic N39.0 Urinary tract infection, site not specified F41.9 Anxiety disorder, unspecified Office Visit 06/24/2017 3:15p [place] [facility] Heri Higgins M51.37 Other intervertebral MANAGER CARE disc degeneration, lumbosacral region M54.2 Cervicalgia F31.81 Bipolar II disorder 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 F41.9 Anxiety disorder, unspecified G43.119 Migraine with aura, intractable, without status migrainosus Office Visit 06/10/2017 3:00p [place] [facility] Heri Higgins G43.119 Migraine with aura, MANAGER CARE intractable, without status migrainosus M54.2 Cervicalgia M51.37 Other intervertebral disc degeneration, lumbosacral region F31.81 Bipolar II disorder Office Visit 05/27/2017 11:00a [place] [facility] Heri HigginsP M54.2 Cervicalgia M51.37 Other intervertebral disc degeneration, lumbosacral region F31.81 Bipolar II disorder 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.891 intermediate (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 analgesic F41.9 Anxiety disorder, unspecified N76.0 Acute vaginitis Office Visit 05/13/2017 3:45p [place] [facility] Heri Higgins M54.2 Cervicalgia M51.37 Other intervertebral disc degeneration, lumbosacral region F31.81 Bipolar II disorder Z79.891 intermediate (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 analgesic Office Visit 04/29/2017 10:00a [place] [facility] Heri Higgins M54.2 Cervicalgia M51.37 Other intervertebral disc degeneration, lumbosacral region F31.81 Bipolar II disorder 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 Office Visit 04/15/2017 4:15p [place] [facility] Heri Higgins M54.2 Cervicalgia M54.2 Cervicalgia M51.37 Other intervertebral disc degeneration, 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, lumbosacral region F31.81 Bipolar II disorder F31.81 Bipolar II disorder Office Visit 03/23/2017 1:45p [place] [facility] Heri Higgins MANAGER CARE M54.2 Cervicalgia M51.37 Other intervertebral disc degeneration, lumbosacral region F31.81 Bipolar II disorder Z79.891 intermediate (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 analgesic F41.9 Anxiety disorder, unspecified G47.00 Insomnia, unspecified Office Visit 02/18/2017 10:30a [place] [facility] Heri HigginsP M54.2 Cervicalgia M51.37 Other intervertebral disc degeneration, lumbosacral region F31.81 Bipolar II disorder 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 Office Visit 02/04/2017 10:00a [place] [facility] Heri HigginsP M54.2 Cervicalgia M51.37 Other intervertebral disc degeneration, lumbosacral region F41.9 Anxiety disorder, unspecified F31.81 Bipolar II disorder Z79.891 intermediate (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 analgesic Office Visit 12/17/2016 4:30p [facility] Heri HigginsP M54.2 Cervicalgia M51.37 Other intervertebral disc degeneration, lumbosacral region F41.9 Anxiety disorder, unspecified F31.81 Bipolar II disorder Office Visit 10/29/2016 10:30a [place] [facility] Heri HigginsP R51 Headache M51.37 Other [...] II disorder Office Visit 06/10/2016 9:30a Heri Denny MANAGER CARE M51.37 Other intervertebral disc degeneration, lumbosacral region M79.606 Pain in leg, unspecified F41.9 Anxiety disorder, unspecified G47.00 Insomnia, unspecified F31.81 Bipolar II disorder Office Visit 05/06/2016 10:00a Heri Denny MANAGER CARE O00.1 Tubal M51.37 Other intervertebral disc degeneration, lumbosacral region M79.606 Pain in leg, unspecified F41.9 Anxiety disorder, unspecified G47.00 Insomnia, unspecified F31.81 Bipolar II disorder Office Visit 04/11/2016 11:30a Heri DennyP O00.1 Tubal M51.37 Other intervertebral disc degeneration, lumbosacral region M79.606 Pain in leg, unspecified F41.9 Anxiety disorder, unspecified F33.1 Major depressive disorder, recurrent, moderate G47.00 Insomnia, unspecified Office Visit 02/26/2016 2:30p Heri Denny MANAGER CARE O00.1 Tubal M51.37 Other intervertebral disc degeneration, lumbosacral region M79.606 Pain in leg, unspecified F31.81 Bipolar II disorder F41.9 Anxiety disorder, unspecified F33.1 Major depressive disorder, recurrent, moderate Office Visit 01/08/2016 3:15p Heri Denny MANAGER CARE O00.1 Tubal M51.37 Other intervertebral disc degeneration, lumbosacral region M79.606 Pain in leg, unspecified F31.81 Bipolar II disorder Office Visit 11/30/2015 4:00p Alexia Vazquez M51.37 Other intervertebral M.D. disc degeneration, lumbosacral region M79.606 Pain in leg, unspecified F31.81 Bipolar II disorder G47.00 Insomnia, unspecified L20.9 Atopic dermatitis, unspecified J30.9 Allergic rhinitis, unspecified Office Visit 08/14/2015 10:45a Lisbetkarly Higgins Heri MANAGER CARE M54.5 Low back pain M54.30 Sciatica, unspecified side M51.36 Other intervertebral disc degeneration, lumbar region R35.0 Frequency of micturition Office Visit 06/19/2015 4:00p Heri Denny MANAGER CARE M54.30 Sciatica, unspecified side M54.5 Low back pain M51.36 Other intervertebral disc degeneration, lumbar region Office Visit 06/05/2015 10:45a Heri DennyP M54.5 Low back pain M25.559 Pain in unspecified hip M54.30 Sciatica, unspecified side Office Visit 05/31/2015 10:00a Heri DennyP M54.5 Low back pain M25.559 Pain in unspecified hip M54.30 Sciatica, unspecified side Office Visit 02/13/2015 3:00p Heri Denny MANAGER CARE 300.00 Anxiety State Unspec 311 Depressive Disorder Not Elsewhere Spec V70.0 Examination General Medical Routine AT Health Care Facility V72.62 Laboratory Exam Ordered as Part Of Routine General Med Exam 780.52 Insomnia Unspecified Plan of Treatment Future Appointment(s):04/29/2018 8:30 am - Alexia Santiago M.D. at [facility]
[2018-05-12 09:34] VITALS: BP 126/69
--- NOTE | 2018-05-12 10:03 | UC ---
Complaint Female HPI - HPI Summary HPI Summary: 33-year-old woman coming in today with a complaint of burning with urination and increased frequency. No fevers or chills. She has mild suprapubic tenderness. States this feels like a urinary tract infection. She has not tried any ibuprofen or Azo. - History Of Current Complaint Chief Complaint: UCGU Stated Complaint: URINARY COMPLAINT Time Seen by Provider: 05/12/18 09:40 Hx Last Menstrual Period: 04/29/18 Pain Intensity: 0 - Allergies/Home Medications Allergies/Adverse Reactions: Allergies Allergy/AdvReac Type Severity Reaction Status Date / Time bacitracin Allergy Rash And Verified 05/12/18 09:30 Itching Sulfa (Sulfonamide Allergy Hives Verified 05/12/18 09:30 Antibiotics) Home Medications: Home Medications FLUoxetine CAP* [PROzac CAP*] 20 mg PO DAILY 05/12/18 [History Confirmed ] PMH/Surg Hx/FS Hx/Imm Hx - Additional Past Medical History Additional PMH: UTI Psychological History: Depression - Surgical History Surgical History: Yes Surgery Procedure, Year, and Place: T&A. urethral diverticulium with cyst removal. eptopic with partial tube removal. ectopic 12/2015. RENAL CALCULI LITHOTRIPSY - Family History Known Family History: Positive: None, Diabetes Negative: Cardiac Disease, Hypertension - Social History Alcohol Use: Rare Substance Use Type: None Smoking Status (MU): Former Smoker Type: Cigarettes Length of Time of Smoking/Using Tobacco: On and Off for 3 years Have You Smoked in the Last Year: No When Did the Patient Quit Smoking/Using Tobacco: 2004 - Immunization History Most Recent Influenza Vaccination: Not the Season Review of Systems Constitutional: Negative Skin: Negative Eyes: Negative ENT: Negative Respiratory: Negative Cardiovascular: Negative Gastrointestinal: Negative Genitourinary: Dysuria, Frequency, Urgency Motor: Negative Neurovascular: Negative Musculoskeletal: Negative Neurological: Negative Is Patient Immunocompromised?: No All Other Systems Reviewed And Are Negative: Yes Physical Exam Triage Information Reviewed: Yes Appearance: Well-Appearing, No Pain Distress, Well-Nourished Vital Signs: Initial Vital Signs Temp 98.3 F 05/12/18 09:29 Pulse 65 05/12/18 09:29 Resp 18 05/12/18 09:29 BP 126/69 05/12/18 09:29 Pulse Ox 99 05/12/18 09:29 Vital Signs Reviewed: Yes Eye Exam: Normal Eyes: Positive: Conjunctiva Clear ENT Exam: Normal ENT: Positive: Normal ENT inspection Neck exam: Normal Neck: Positive: Supple Respiratory Exam: Normal Respiratory: Positive: Lungs clear, Normal breath sounds, No respiratory distress Cardiovascular Exam: Normal Cardiovascular: Positive: RRR Abdomen Description: Positive: Soft, CVA Tenderness (R) - MILD, CVA Tenderness ( L) - MILD, Other: Bowel Sounds: Positive: Present Musculoskeletal Exam: Normal Musculoskeletal: Positive: Strength Intact, ROM Intact Neurological Exam: Normal Neurological: Positive: Alert Psychological Exam: Normal Psychological: Positive: Age Appropriate Behavior Skin Exam: Normal Complaint Female Dx - Differential Dx/Diagnosis Provider Diagnoses: UTI Discharge - Sign-Out/Discharge Documenting (check all that apply): Patient Departure All imaging exams completed and their final reports reviewed: No Studies - Discharge Plan Condition: Stable Disposition: HOME Prescriptions: Cephalexin CAP* [Keflex CAP*] 500 mg PO TID #21 cap Patient Education Materials: Urinary Tract Infection in Women (ED) Referrals: Alexia Santiago MD [Primary Care Provider] - Additional Instructions: FOLLOW UP WITH YOUR DOCTOR. GET RECHECKED FOR ANY WORSENING OF YOUR CONDITION OR QUESTIONS OR CONCERNS. - Billing Disposition and Condition Condition: STABLE Disposition: Home
== END 2018-05-12 10:10 | disposition home or self-care (01) ==
LOC: UCCORT 08:32
DX: N39.0 Urinary tract infection, site not specified (principal); Z87.891 Personal history of nicotine dependence; Z88.2 Allergy status to sulfonamides; Z88.3 Allergy status to other anti-infective agents
CPT/HCPCS: 81003; 84702; 87077; 87086; 87186; 99212; G0463

== ENCOUNTER 2018-12-04 15:49 | Emergency (ER) | payer OTHER ==
--- OUTSIDE RECORDS SUMMARY | 2018-12-04 16:39 | XMS REPORT | Continuity of Care Document ---
:1985 External Reference #:[id number] Author Name Carlitos Morales N.P. 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 Payers Date Identification Numbers Payment Provider Subscriber Policy Number: [id number] [facility] Donald Ivan PayID: [id number] [address] [place] [address] Policy Number: [id number] [employer] Donald Ivan PayID: [id number] [address] [place] [address] Advance Directives Description No Information Available Problems Active Problems Provider Date Anxiety state Heri Higgins [employer] Onset: 07/08/2016 Insomnia Heri Higgins [employer] Onset: 07/08/2016 Bipolar disorder Heri Higgins [employer] Onset: 07/08/2016 Moderate recurrent major depression Heri Higgins [employer] Onset: 07/08/2016 Degeneration of lumbar intervertebral disc Heri Higgins [employer] Onset: 07/08/2016 Family History Date Family Member(s) Observation Comments Father 58 Father Thyroid Disease Father [...] a former smoker Allergies, Adverse Reactions, Alerts Active Allergies Reaction Severity Comments Date Seasonal 02/13/2015 Bacitracin 02/13/2015 ALL Sulfa Drugs Nausea and Vomiting, Urticaria Severe 07/10/2017 Keflex Hives 05/28/2018 Medications Active Medications SIG Qnty Indications Ordering Provider Date Imitrex 1 by mouth x 14tabs G43.119 Alexia SantiagoLeonardo, 11/26/2018 100mg Tablets once as needed M.D. headache, may repeat dose x 1 after 2 hour if no relieve prn. [id number] Ibuprofen 1 by mouth three 90tabs JackMichealglenn VannesaLeonardo, 11/26/2018 800mg Tablets times a day as M.D. needed Hydrocodone-Acetamino 1 tab by mouth 75tabs M54.5 [facility], 2017 phen every 6 hours as M.D. 5-325mg Tablets needed for back pain Tylenol Extra 2 tabs by mouth 180tabs M54.5 [facility] Leon[facility], 07/16/2018 Strength three times a M.D. 500mg Tablets day as directed. max daily dose of tylenol from all sources to not exceed 4000mg Zofran 1-2 tabs by 60tabs R11.0 Jack momoglenn Garcia, 06/21/2018 4mg Tablets mouth every 4 M.D. hours as needed nausea/vomiting Vitamin D3 tab one by mouth 30units E55.9 [facility], 05/28/2018 2000Unit every day M.D. Chewtabs Abilify tab one by mouth 30tabs F31.81 [facility] Leon[facility], 07/10/2017 10mg Tablets every day M.D. F41.9 History Medications Cyclobenzaprine HCL take one 90tabs M54.5 [facility] 07/16/2018 - 10mg tablet by Jose GarciaDLeonardo 10/19/2018 Tablets mouth three times a day as needed Naproxen 1 tab by mouth 60tabs M54.5 [facility] 07/16/2018 - 500mg Tablets twice a day M., M.D. 11/25/2018 Hydrocodone-Acetaminoph 1 tab by mouth 28tabs M54.5 [facility] 2017 - en every 6 hours M. M.D. 07/23/2018 5-325mg Tablets as needed for Back pain Imitrex One Tab PO prn 14tabs G43.119 [facility] 06/21/2018 - 50mg Tablets Headache, May M., M.D. 11/26/2018 Repeat X 1 If No Relief In 2 Hours. Fluconazole tab one by 14tabs N76.0 [facility] 05/27/2017 - 100mg Tablets mouth x14 days M., M.D. 08/10/2017 Metronidazole 1 tab by mouth 20tabs N76.0 [facility], [facility] 05/27/2017 - 500mg Tablets twice a day M., M.D. 06/06/2017 Ondansetron HCL 1 tab by mouth 40tabs N20.0 [facility] 05/27/2017 - 8mg Tablets every 6 hours M., M.D. 12/08/2017 as needed Diazepam 1 tab by mouth 90tabs F41.9 [facility] 04/15/2017 - 5mg Tablets bid-tid as M., M.D. 09/08/2017 needed Hydrocodone-Acetaminoph 1-2 tab by 180tabs M51.37 [facility] 04/15/2017 - en mouth every 4 M., M.D. 09/08/2017 10-325mg Tablets hours as needed M79.606 Gentamicin Sulfate 2 drops both eyes 10cc [facility] 12/18/2016 - three times a day M., M.D. 12/29/2016 0.3% Solution for 5-7 days Topiramate tab one by mouth 60tabs M54.2 [facility] 09/16/2016 - 50mg twice a day M., M.D. 09/23/2016 Tablets Cheratussin ac teaspoon 1 every 150cc J06.9 [facility] 09/04/2016 - 4 hours as needed M., M.D. 09/13/2016 100-10mg/5ML Syrup Cipro 1 twice a day 20tabs J06.9 [facility] 09/04/2016 - 500mg Tablets M., M.D. 09/15/2016 Prednisone 3 tab by mouth 18tabs [facility] 08/12/2016 - 20mg daily 3 days, M., M.D. 09/13/2016 Tablets then 2 tab daily x 3 d , then 1 tab daily 3d Fluoxetine HCL 1 by mouth three 90caps F31.81 [facility], [facility] 05/06/2016 - 40mg times a day a day M. M.DLeonardo 11/25/2018 Capsules F41.9 Fluoxetine HCL (PMDD) tab one by mouth 60caps F33.1 [facility], [facility] 2015 - twice a day M. M.DLeonardo 05/06/2016 20mg Capsules Cephalexin tab one by mouth 30caps [facility] 03/03/2016 - 500mg three times a day M. M.DLeonardo 03/14/2016 Capsules Quetiapine Fumarate tab one po bid 60tabs F31.81 [facility] 02/28/2016 - MNakul Patterson 04/11/2016 25mg Tablets Aripiprazole Tab One PO Q hs 30tabs [facility] 02/26/2016 - 10mg Vannesa.Vannesa.DLeonardo 02/28/2016 Tablets Sulfamethoxazole/Trim tab one by mouth 20tabs [facility] 02/26/2016 - ethoprim DS twice a day M. M.DLeonardo 03/03/2016 800-160mg Tablets Physical Therapy To strengthen lumbar M54.5 [facility] 08/14/2015 - Lumbar Region muscles MLeonardo MLeonardoDLeonardo 08/31/2015 Ondansetron HCL Tab One Q 4 HRS 60tabs M54.5 [facility] 06/05/2015 - 4mg prn Jose M.DLeonardo 11/09/2015 Tablets Gabapentin take one capsule 30caps M54.5 [facility], [facility] 05/31/2015 - 300mg by mouth three M., M.D. 06/05/2015 Capsules times a day maximum daily dose=3 M25.559 M54.30 Hydrocodone-Acetaminophen tab one by 120tabs M51.37 [facility] 2014 - 7.5-325mg Tablets mouth every M., M.D. 04/15/2017 3 hour as needed M79.606 Viibryd Samples F31.81 [facility] 02/13/2015 - 10&20&40mg M.Vannesa.D. 02/26/2016 Kit Ativan 1 tab by mouth 45tabs F31.81 Jack, [facility] - 1mg Tablets three times a M., MLeonardoDLeonardo 04/15/2017 day as needed G47.00 Cyclobenzaprine HCL Unknown - 10mg 11/30/2015 Tablets Hydrocodone-Acetaminophe Jack, [facility] - n Nakul Gracia 05/31/2015 5-325mg Tablets Ibuprofen 1 tab by mouth 90tabs M51.37 Jack, mad - 600mg Tablets three times a M., M.D. 07/15/2018 day as needed M79.606 M54.2 Immunizations CPT Code Status Date Vaccine Lot # [id number] Refused 06/10/2016 Flu Vaccine [id number] Refused 06/19/2015 Flu Vaccine Vital Signs Date Vital Result Comment 11/26/2018 10:33am BP Systolic 118 mmHg BP Diastolic 62 mmHg Height 64 inches 5'4" Weight 160.00 lb BMI (Body Mass Index) 27.5 kg/m2 Heart Rate 89 /min Respiratory Rate 16 /min 10/20/2018 2:19pm BP Systolic 118 mmHg BP Diastolic 68 mmHg Height 64 inches 5'4" Weight 163.00 lb BMI (Body Mass Index) 28.0 kg/m2 Heart Rate 77 /min Respiratory Rate 16 /min 09/22/2018 3:03pm BP Systolic 118 mmHg BP Diastolic 78 mmHg Height 64 inches 5'4" Weight 162.00 lb BMI (Body Mass Index) 27.8 kg/m2 Heart Rate 85 /min Respiratory Rate 16 /min 08/27/2018 10:42am BP Systolic 118 mmHg BP Diastolic 68 mmHg Height 64 inches 5'4" Weight 156.00 lb BMI (Body Mass Index) 26.8 kg/m2 Heart Rate 80 /min Respiratory Rate 16 /min 07/23/2018 10:43am BP Systolic 118 mmHg BP Diastolic 74 mmHg Height 64 inches 5'4" Weight 153.00 lb BMI (Body Mass Index) 26.3 kg/m2 Heart Rate 72 /min Body Temperature 98.6 F Respiratory Rate 20 /min 07/16/2018 1:26pm BP Systolic 118 mmHg BP Diastolic 70 mmHg Height 64 inches 5'4" Weight 153.00 lb BMI (Body Mass Index) 26.3 kg/m2 Respiratory Rate 16 /min 06/21/2018 8:42am BP Systolic 110 mmHg BP Diastolic 72 mmHg Height 64 inches 5'4" Weight 148.00 lb BMI (Body Mass Index) 25.4 kg/m2 Heart Rate 89 /min Respiratory Rate 16 /min 05/28/2018 9:44am BP Systolic 110 mmHg BP Diastolic 62 mmHg Height 64 inches 5'4" Weight 155.00 lb BMI (Body Mass Index) 26.6 kg/m2 Heart Rate 64 /min Respiratory Rate 16 /min 05/03/2018 11:32am BP Systolic 112 mmHg BP [...] Date Facility Test Result H/L Range Note Ethyl Glucuronide 09/22/2018 [facility] Ethyl Negative N 500 1 Glucuronide ng/mL PDF SEE IMAGE Laboratory test finding 09/22/2018 [facility] Tramadol Negative ng/mL N 5 2 Gabapentin Negative ng/mL N 100 3 Cyclobenzaprine Positive >2000 C <SEE NOTE> ng/mL N 20 4 Aripiprazole Negative Inconsi <SEE NOTE> ng/mL Abnormal 10 5 Urine DRG SCR 09/22/2018 [facility] Amphetamine NEGATIVE N 1000 (12PNL-PM) Barbiturate POSITIVE Abnormal 200 Benzodiazepine NEGATIVE N 200 Buprenorphine NEGATIVE N 15 Cannabinoid POSITIVE Abnormal 50 Cocaine NEGATIVE N 300 Methadone NEGATIVE N 300 Opiate POSITIVE Abnormal 300 Oxycodone NEGATIVE N 300 Phencyclidine NEGATIVE N 25 6 Cocaine Panel By 09/22/2018 [facility] Benzoylecgonine Negative ng/mL N 50 7 LC/MS/MS (Cocaine) Amphetamine Panel 09/22/2018 [facility] Amphetamine Negative ng/ mL N 50 By LC/MS/MS Methamphetamine Negative ng/mL N 50 Mdma (Ecstasy) Negative ng/mL N 50 Mda Negative ng/ml N 50 Mdea Negative ng/mL N 50 8 Specimen Validity 09/22/2018 [facility] Creatinine, Urine 117 mg/ dL N >20 Panel Color YELLOW N Yellow pH 5.7 N 5.0-8.0 Specific Mil[place] 1.017 N 1.001-1.035 9 Opiates Panel By 09/22/2018 [facility] 6-Ginger (Heroin Negative ng/ mL N 5 LC/MS/MS Metabolite) Codeine Negative ng/mL N 50 Hydrocodone 3979 Positive Co <SEE NOTE> ng/mL N 50 10 Hydromorphone Negative Consist <SEE NOTE> ng/mL N 50 11 Morphine Negative ng/mL N 50 Norhydrocodone 2832 Positive Co <SEE NOTE> ng/mL N 50 12 Noroxycodone Negative ng/mL N 50 Noroxymorphone Negative ng/mL N 50 Oxycodone Negative ng/mL N 50 Oxymorphone Negative ng/mL N 50 13 Methadone Panel By 09/22/2018 [facility] Eddp Negative ng/mL N 10 LC/MS/MS Methadone Negative ng/mL N 10 14 Buprenorphine Panel By 09/22/2018 [facility] Buprenorphine Negative ng/mL N 5 LC/MS/MS Naloxone Negative ng/mL N 10 Norbuprenorphine Negative ng/mL N 5 15 Benzodiazepines 09/22/2018 [facility] 2-Hydroxyethylflurazepam Negative N 10 Panel By LC/MS/MS ng/mL 7-Aminoclonazepam Negative ng/mL N 10 Alprazolam Negative ng/mL N 10 Chlordiazepoxide Negative ng/mL N 10 Clonazepam Negative ng/mL N 10 Desalkylflurazepam Negative ng/mL N 10 Diazepam Negative ng/mL N 10 Lorazepam Negative ng/mL N 10 Midazolam Negative ng/ml N 10 Nordiazepam Negative ng/mL N 10 Alpha-hydroxyalprazolam Negative ng/mL N 10 Alpha-Hydroxymidazolam Negative ng/mL N 10 Alpha-Hydroxytriazolam Negative ng/mL N 10 Oxazepam Negative ng/mL N 10 Prazepam Negative ng/mL N 10 Temazepam Negative ng/mL N 10 16 Barbiturates Panel 09/22/2018 [facility] Butalbital 1250 Positive Abnormal 100 17 By LC/MS/MS In <SEE NOTE> ng/mL Pentobarbital Negative ng/mL N 100 Phenobarbital Negative ng/mL N 100 Secobarbital Negative ng/mL N 100 18 Antidepressants Panel 09/22/2018 [facility] Amitriptyline Negative ng/mL N 20 By LC/MS/MS Clomipramine Negative ng/mL N 20 Desipramine Negative ng/mL N 20 Doxepin Negative ng/mL N 20 Fluoxetine Positive >2000 C <SEE NOTE> ng/mL N 20 19 Imipramine Negative ng/mL N 20 Norclomipramine Negative ng/mL N 20 Nordoxepin Negative ng/mL N 20 Nortriptyline Negative ng/mL N 20 Sertraline Negative ng/mL N 20 Trimipramine Negative ng/mL N 20 20 Urine Drug 09/22/2018 [facility] [id number] 145.9 Abnormal 5 21 [place] Positive I <SEE NOTE> ng/mL Urinalysis 09/22/2018 [facility] Color YELLOW W/Micro [address] [employer] (607)- - Appearance CLOUDY Spec Grav Urine 1.021 (1.003-1.030) PH Urine 6.0 (5.0-7.5) Leuk Esterase 3+ Abnormal (Neg) Nitrite Urine NEGATIVE (Neg) Protein Urine NEGATIVE (Neg) Glucose Urine NEGATIVE (Neg) Ketone Urine NEGATIVE (Neg) Urobilinogen 0.2 mg/dL (0-1.0) Bilirubin Urine NEGATIVE (Neg) Blood/HGB Urine NEGATIVE (Neg) Urine WBC * 25-50 [HPF] (0-5) Urine RBC NONE SEEN [HPF] (0-2) Epithelial Cells 2+ [HPF] Bacteria 3+ [HPF] Mucus 1+ [HPF] Caox Crystals 1+ [HPF] Urine Culture 08/13/2018 [place] Urine Culture URETHRAL JOSSELIN 22 Quantity 10,000 - 50,000 <SEE NOTE> 23 Culture If Indicated 08/13/2018 [place] Culture If Indicated CULTURE TO FOLLO 24 Comment Comment <SEE NOTE> Source: URINE, CLEAN CAT <SEE NOTE> 25 Urinalysis With Microscopic 08/13/2018 [place] Urine Color YELLOW Yellow Urine Clarity CLEAR Clear Urine Glucose - Dipstick 100 mg/dL High Negative Urine Bilirubin - Dipstick MODERATE Abnormal Negative Urine Ketone 15 mg/dL High Negative Urine Specific [place] 1.025 N 1.010-1.030 Urine Blood LARGE Abnormal Negative Urine PH 5.0 Low 6.5-7.5 Urine Protein - Dipstick >=300 mg/dL High Negative Urine Urobilinogen - Dipstick >=8.0 E.U./dL High 0.2-1.0 Urine Nitrite - Dipstick POSITIVE Abnormal Negative Urine Leuk Esterase MODERATE Abnormal Negative Urine RBC 30-50 rbc/hpf High 0-2 Urine WBC TNTC wbc/hpf High 0-7 Urine Epithelial Cells MODERATE /lpf None Seen 26 Urine Bacteria FEW None Seen Source: URINE, CLEAN CAT <SEE NOTE> 27 Urine HCG 08/13/2018 [place] Urine HCG NEGATIVE Negative 28 (Qualitative) (Qualitative) Source: URINE, CLEAN CAT <SEE NOTE> 29 Thyroid Antibody 05/28/2018 [facility] [place] Thyroglobulin AB @ <20 IU/mL (< 40) And Peroxidase [address] [employer] (607)- - Thyr Peroxidase AB @ <10 IU/mL (<35) Thyroid 05/28/2018 [facility] [place] TSH,Ultrasensitive @ 0.687 (0.360-4.170 ) [place] @ [address] [employer] mIU/L (607)- - Dipti By Ifa 05/28/2018 [facility] Homogeneous Pattern <50 30 [address] [employer] [employer] (607)- - Speckled Pattern <50 31 Peripheral Pattern <50 32 Nucleolar Pattern <50 33 Laboratory test finding 05/28/2018 [facility] [place] Esr 25 mm/h High (0-20) 113 [employer] (607)- - Rheumatoid Factor @ <15 IU/mL (0-15) Urinalysis With Microscopic 05/20/2018 [place] Urine Color YELLOW Yellow 34 Urine Clarity CLEAR Clear Urine Glucose - Dipstick NEGATIVE mg/dL Negative Urine Bilirubin - Dipstick NEGATIVE Negative Urine Ketone NEGATIVE mg/dL Negative Urine Specific [place] 1.010 N 1.010-1.030 Urine Blood LARGE Abnormal Negative Urine PH 8.0 High 6.5-7.5 Urine Protein - Dipstick NEGATIVE mg/dL Negative Urine Urobilinogen - Dipstick 0.2 E.U./dL N 0.2-1.0 Urine Nitrite - Dipstick NEGATIVE Negative Urine Leuk Esterase MODERATE Abnormal Negative Urine RBC 10-20 rbc/hpf High 0-2 Urine WBC 2-5 wbc/hpf 0-7 Urine Epithelial Cells MANY /lpf None Seen 35 Urine Bacteria VERY FEW None Seen Source: URINE, CLEAN CAT <SEE NOTE> 36 Chlmaydia/GC/Trichomonas PCR 05/20/2018 [place] Trichomonas Negative Negative vaginalis PCR Chlamydia trachomatis, PCR Negative Negative Neisseria gonorrhoeae, PCR Negative Negative 37 Urine Culture And 05/12/2018 [facility] Urine SEE RESULT 38, 39 Sensitivities Culture BELOW Laboratory test 05/12/2018 [facility] Poc Negative Negative 40 finding , Urine Poc Urinalysis 05/12/2018 [facility] Poc Glucose, Negative Negative Urine Poc Bilirubin, Urine Negative Negative Poc Ketone, Urine Negative Negative Poc Specific Mil[place], Urine 1.015 N 1.010-1.030 Poc Blood, Urine 3+ Abnormal Negative Poc pH, Urine 7.5 N 5-9 Poc Protein, Urine 2+ Abnormal Negative Poc Urobilinogen, Urine 0.2 Negative Poc Nitrite, Urine Negative Negative Poc Leukocytes, Urine 3+ Abnormal Negative Poc Color, Urine Margaret Poc Clarity, Urine Slightly Cloudy 41 Hemoglobin A1c 05/03/2018 [place] Glycohemoglobin (A1c) 4.6 % N 4.2-6.3 42, 43 eAG 85 mg/dL Lipid 05/03/2018 [place] Cholesterol 260 mg/dL High <200 44 Triglycerides 112 mg/dL <150 45 HDL Cholesterol 70 mg/dL >40 46 LDL-Cholesterol 168 mg/dL < 100 47 Laboratory test 05/03/2018 [place] Thyroid Stim 0.64 uIU/mL N 0.30-4.20 finding Hormone CMP 05/03/2018 [facility] Glucose 78 mg/dL N 74-106 BUN 9 mg/dL N 7-18 Creatinine 0.7 mg/dL N 0.6-1.3 Glom Filtration Rate, Estimate >60 mL/min >60 If >60 mL/min >60 48 BUN/Creat 12.8 ratio Sodium 138 mmol/L N 136-145 Potassium 3.9 mmol/L N 3.5-5.1 Chloride 105 mmol/L N 98-107 Carbon Dioxide 27 mmol/L N 21-32 Anion Gap 6 mEq/L Low 8-16 Calcium 8.5 mg/dL N 8.5-10.1 Total Protein 7.5 g/dL N 6.4-8.2 Albumin 3.4 g/dL N 3.4-5.0 Globulin 4.1 g/dL N 1.9-4.3 Alb/Glob 0.8 ratio Bilirubin,Total 0.7 mg/dL N 0.2-1.0 Sgot/Ast 29 U/L N 15-37 SGPT/Alt 40 U/L N 12-78 Alkaline Phosphatase 98 U/L N 45-117 CBC With Diff 05/03/2018 [facility] White Blood Count 5.8 K/uL N 3.1-10.7 Red Blood Count 3.89 M/uL Low 3.90-5.40 Hemoglobin 12.0 gm/dL N 11.6-15.8 Hematocrit 36.6 % N 36.0-46.1 Mean Cell Volume 94.1 fl N 80.9-99.0 Mean Corpuscular HGB 30.8 pg N 25.9-32.7 Mean Corpuscular HGB Conc 32.8 g/dL N 30.8-34.3 Platelet Count 271 K/uL N 155-360 Red Cell Distri Width SD 43.7 fl N 3-47 Red Cell Distri Width %CV 13.2 % N 11.7-14.4 Mean Platelet Volume 9.7 fL N 8.9-12.4 Neut% 66.9 % N 40.4-72.8 Lymph % 25.1 % N 20.0-42.0 Hettinger % 7.2 % N 4.3-13.2 Eo% 0.5 % N 0.0-6.6 Bas% 0.3 % N 0.0-1.1 Neut# 3.88 K/uL N 1.8-7.0 Lymph # 1.46 K/uL N 1.0-4.0 Hettinger # 0.42 K/uL N 0.3-0.9 Eos # 0.03 K/uL N 0.0-0.5 Baso # 0.02 K/uL N 0.0-0.1 Laboratory test finding 05/03/2018 [facility] Uric Acid 3.6 mg/dL N 2.6- 6.0 Rheumatoid Factor Screen < 10.0 IU/mL N 0.0-15.0 Lipase 246 U/L N 56-289 Amylase 53 U/L N 25-115 Sedimentation Rate 46 mm/hr High 0-20 49 Vitamin D,25-Hydroxy 26.2 ng/mL Low 30.0-100.0 50 Chlmaydia/GC/Trichomonas 02/23/2018 [place] Trichomonas POSITIVE Abnormal Negative 51 PCR vaginalis PCR Chlamydia trachomatis, PCR Negative Negative Neisseria gonorrhoeae, PCR Negative Negative 52 Urinalysis With Microscopic 02/23/2018 [place] Urine Color YELLOW Yellow Urine Clarity SL CLOUDY Clear Urine Glucose - Dipstick NEGATIVE mg/dL Negative Urine Bilirubin - Dipstick NEGATIVE Negative Urine Ketone NEGATIVE mg/dL Negative Urine Specific [place] 1.010 N 1.010-1.030 Urine Blood NEGATIVE Negative Urine PH 6.0 Low 6.5-7.5 Urine Protein - Dipstick NEGATIVE mg/dL Negative Urine Urobilinogen - Dipstick 0.2 E.U./dL N 0.2-1.0 Urine Nitrite - Dipstick NEGATIVE Negative Urine Leuk Esterase LARGE Abnormal Negative Urine RBC 2-5 rbc/hpf 0-2 Urine WBC > 50 wbc/hpf High 0-7 53 Urine Epithelial Cells FEW /lpf None Seen Urine Bacteria FEW None Seen Source: URINE, CLEAN CAT <SEE NOTE> 54 Urine Culture 02/23/2018 [facility] Urine Culture URETHRAL JOSSELIN Quantity 10,000 - 50,000 <SEE NOTE> 55 CBS W/Automated Diff 02/23/2018 [facility] White Blood Count 8.1 K/uL N 3.1 -10.7 Red Blood Count 3.76 M/uL Low 3.90-5.40 Hemoglobin 11.8 gm/dL N 11.6-15.8 Hematocrit 34.5 % Low 36.0-46.1 Mean Cell Volume 91.8 fl N 80.9-99.0 Mean Corpuscular HGB 31.4 pg N 25.9-32.7 Mean Corpuscular HGB Conc 34.2 g/dL N 30.8-34.3 Platelet Count 241 K/uL N 155-360 Red Cell Distri Width SD 43.1 fl N 3-47 Red Cell Distri Width %CV 13.4 % N 11.7-14.4 Mean Platelet Volume 10.0 fL N 8.9-12.4 Neut% 62.2 % N 40.4-72.8 Lymph % 28.8 % N 20.0-42.0 Hettinger % 8.1 % N 4.3-13.2 Eo% 0.7 % N 0.0-6.6 Bas% 0.2 % N 0.0-1.1 Neut# 5.01 K/uL N 1.8-7.0 Lymph # 2.32 K/uL N 1.0-4.0 Hettinger # 0.65 K/uL N 0.3-0.9 Eos # 0.06 K/uL N 0.0-0.5 Baso # 0.02 K/uL N 0.0-0.1 Laboratory test finding 02/23/2018 [facility] Lipase 841 U/L High 56-289 56 HCG,Serum (Qualitative) NEGATIVE (Negative) 57 Comprehensive Metabolic Panel 02/23/2018 [facility] Glucose 81 mg/dL N 74- 106 BUN 9 mg/dL N 7-18 Creatinine 0.8 mg/dL N 0.6-1.3 Glom Filtration Rate, Estimate >60 mL/min >60 If >60 mL/min >60 58 BUN/Creat 11.2 ratio Sodium 141 mmol/L N 136-145 Potassium 3.5 mmol/L N 3.5-5.1 Chloride 109 mmol/L High 98-107 Carbon Dioxide 25 mmol/L N 21-32 Anion Gap 7 mEq/L Low 8-16 Calcium 8.5 mg/dL N 8.5-10.1 Total Protein 7.0 g/dL N 6.4-8.2 Albumin 3.0 g/dL Low 3.4-5.0 Globulin 4.0 g/dL N 1.9-4.3 Alb/Glob 0.8 ratio Bilirubin,Total 0.1 mg/dL Low 0.2-1.0 Sgot/Ast 12 U/L Low 15-37 59 SGPT/Alt 21 U/L N 12-78 Alkaline Phosphatase 93 U/L N 45-117 Laboratory test 02/21/2018 [facility] Urine Culture NO GROWTH: 60, 61 finding FINAL <SEE NOTE> Urinalysis With 02/21/2018 [place] Urine Color YELLOW Yellow Microscopic Urine Clarity CLOUDY Clear Urine Glucose - Dipstick NEGATIVE mg/dL Negative Urine Bilirubin - Dipstick NEGATIVE Negative Urine Ketone NEGATIVE mg/dL Negative Urine Specific [place] >=1.030 N 1.010-1.030 Urine Blood SMALL Abnormal Negative Urine PH 6.0 Low 6.5-7.5 Urine Protein - Dipstick TRACE mg/dL Negative Urine Urobilinogen - Dipstick 0.2 E.U./dL N 0.2-1.0 Urine Nitrite - Dipstick NEGATIVE Negative Urine Leuk Esterase MODERATE Abnormal Negative Urine RBC 2-5 rbc/hpf 0-2 Urine WBC > 50 wbc/hpf High 0-7 Urine Epithelial Cells MANY /lpf None Seen 62 Urine Calcium Oxalate Crystals FEW None Seen Urine Bacteria MODERATE Abnormal None Seen Source: URINE, CLEAN CAT <SEE NOTE> 63 Lactic Acid 02/14/2018 [place] Lactic Acid 0.5 mmol/L N 0.4-1.9 64 Lab Reflex >2.0 for Sepsis? Y Urinalysis With Microscopic 02/14/2018 [place] Urine Color YELLOW Yellow Urine Clarity CLOUDY Clear Urine Glucose - Dipstick NEGATIVE mg/dL Negative Urine Bilirubin - Dipstick NEGATIVE Negative Urine Ketone NEGATIVE mg/dL Negative Urine Specific [place] 1.010 N 1.010-1.030 Urine Blood TRACE Negative Urine PH 6.0 Low 6.5-7.5 Urine Protein - Dipstick TRACE mg/dL Negative Urine Urobilinogen - Dipstick 0.2 E.U./dL N 0.2-1.0 Urine Nitrite - Dipstick NEGATIVE Negative Urine Leuk Esterase LARGE Abnormal Negative Urine RBC 2-5 rbc/hpf 0-2 Urine WBC > 50 wbc/hpf High 0-7 Urine Epithelial Cells MANY /lpf None Seen 65 Urine Bacteria MODERATE Abnormal None Seen Source: URINE, CLEAN CAT <SEE NOTE> 66 Urine Culture 02/14/2018 [place] Urine Culture BETA STREPTOCOCC <SEE Abnormal 67 NOTE> Quantity > 100,000 CFU/mL 68 Recommended Therapy: PENICILLIN OR AM <SEE NOTE> 69 Urine Culture URETHRAL JOSSELIN Quantity 10,000 - 50,000 <SEE NOTE> 70 CBS W/Automated Diff 02/14/2018 [facility] White Blood Count 8.1 K/uL N 3.1 -10.7 Red Blood Count 4.01 M/uL N 3.90-5.40 Hemoglobin 12.6 gm/dL N 11.6-15.8 Hematocrit 37.1 % N 36.0-46.1 Mean Cell Volume 92.5 fl N 80.9-99.0 Mean Corpuscular HGB 31.4 pg N 25.9-32.7 Mean Corpuscular HGB Conc 34.0 g/dL N 30.8-34.3 Platelet Count 242 K/uL N 155-360 Red Cell Distri Width SD 43.9 fl N 3-47 Red Cell Distri Width %CV 13.4 % N 11.7-14.4 Mean Platelet Volume 10.0 fL N 8.9-12.4 Neut% 67.3 % N 40.4-72.8 Lymph % 21.8 % N 20.0-42.0 Hettinger % 9.1 % N 4.3-13.2 Eo% 1.6 % N 0.0-6.6 Bas% 0.2 % N 0.0-1.1 Neut# 5.46 K/uL N 1.8-7.0 Lymph # 1.77 K/uL N 1.0-4.0 Hettinger # 0.74 K/uL N 0.3-0.9 Eos # 0.13 K/uL N 0.0-0.5 Baso # 0.02 K/uL N 0.0-0.1 Chlam/GC/Trichomonas 02/14/2018 [facility] Ur Trichomonas POSITIVE Abnormal Negative PCR, Ur vaginalis,PCR Ur Chlamydia trachomatis,PCR Negative Negative Ur Neisseria gonorrhoeae,PCR Negative Negative 71 Urinalysis With Microscopic 02/14/2018 [facility] Urine Color YELLOW Yellow Urine Clarity SL CLOUDY Clear Urine Glucose - Dipstick NEGATIVE mg/dL Negative Urine Bilirubin - Dipstick NEGATIVE Negative Urine Ketone NEGATIVE mg/dL Negative Urine Specific [place] <=1.005 Low 1.010-1.030 Urine Blood TRACE Negative Urine PH 5.5 Low 6.5-7.5 Urine Protein - Dipstick NEGATIVE mg/dL Negative Urine Urobilinogen - Dipstick 0.2 E.U./dL N 0.2-1.0 Urine Nitrite - Dipstick NEGATIVE Negative Urine Leuk Esterase LARGE Abnormal Negative Urine RBC NONE SEEN rbc/hpf 0-2 Urine WBC 30-50 wbc/hpf High 0-7 Urine Epithelial Cells MODERATE /lpf None Seen 72 Urine Bacteria VERY FEW None Seen Source: URINE, CLEAN CAT <SEE NOTE> 73 Poc Urinalysis 12/22/2017 [facility] Poc Glucose, Urine Negative Negative Poc Bilirubin, Urine Negative Negative Poc Ketone, Urine Negative Negative Poc Specific [place], Urine >=1.030 N 1.010-1.030 Poc Blood, Urine 3+ Abnormal Negative Poc pH, Urine 6.0 N 5-9 Poc Protein, Urine 3+ Abnormal Negative Poc Urobilinogen, Urine 0.2 Negative Poc Nitrite, Urine Negative Negative Poc Leukocytes, Urine 3+ Abnormal Negative Poc Color, Urine Yellow Poc Clarity, Urine Clear 74 Urine Culture And 12/22/2017 [facility] Urine Culture SEE RESULT 75, 76 Sensitivities BELOW Urine Culture 07/22/2017 [place] Urine Culture URETHRAL JOSSELIN 77 Quantity 10,000 - 50,000 <SEE NOTE> 78 Urinalysis With Microscopic 07/22/2017 [place] Urine Color YELLOW Yellow Urine Clarity SL CLOUDY Clear Urine Glucose - Dipstick NEGATIVE mg/dL Negative Urine Bilirubin - Dipstick NEGATIVE Negative Urine Ketone NEGATIVE mg/dL Negative Urine Specific [place] >=1.030 N 1.010-1.030 Urine Blood LARGE Abnormal Negative Urine PH 6.0 Low 6.5-7.5 Urine Protein - Dipstick NEGATIVE mg/dL Negative Urine Urobilinogen - Dipstick 0.2 E.U./dL N 0.2-1.0 Urine Nitrite - Dipstick NEGATIVE Negative Urine Leuk Esterase TRACE Abnormal Negative Urine RBC 5-10 rbc/hpf High 0-2 Urine WBC 10-20 wbc/hpf High 0-7 Urine Epithelial Cells VERY FEW /lpf None Seen Urine Bacteria NONE SEEN None Seen Source: URINE, CLEAN CAT <SEE NOTE> 79 CBS W/Automated Diff 07/22/2017 [place] White Blood Count 7.6 K/uL N 3.1 -10.7 Red Blood Count 4.14 M/uL N 3.90-5.40 Hemoglobin 13.2 gm/dL N 11.6-15.8 Hematocrit 38.8 % N 36.0-46.1 Mean Cell Volume 93.7 fl N 80.9-99.0 Mean Corpuscular HGB 31.9 pg N 25.9-32.7 Mean Corpuscular HGB Conc 34.0 g/dL N 30.8-34.3 Platelet Count 221 K/uL N 155-360 Red Cell Distri Width SD 43.9 fl N 3-47 Red Cell Distri Width %CV 13.2 % N 11.7-14.4 Mean Platelet Volume 10.2 fL N 8.9-12.4 Neut% 67.5 % N 40.4-72.8 Lymph % 23.6 % N 20.0-42.0 [place] % 7.6 % N 4.3-13.2 Eo% 1.0 % N 0.0-6.6 Bas% 0.3 % N 0.0-1.1 Neut# 5.16 K/uL N 1.8-7.0 Lymph # 1.80 K/uL N 1.0-4.0 Hetting[place] # 0.58 K/uL N 0.3-0.9 Eos # 0.08 K/uL N 0.0-0.5 Baso # 0.02 K/uL N 0.0-0.1 Urinalysis With Microscopic 07/08/2017 [place] Urine Color YELLOW Yellow 80 Urine Clarity CLEAR Clear Urine Glucose - Dipstick NEGATIVE mg/dL Negative Urine Bilirubin - Dipstick NEGATIVE Negative Urine Ketone NEGATIVE mg/dL Negative Urine Specific [place] <=1.005 Low 1.010-1.030 Urine Blood LARGE Abnormal Negative Urine PH 6.0 Low 6.5-7.5 Urine Protein - Dipstick NEGATIVE mg/dL Negative Urine Urobilinogen - Dipstick 0.2 E.U./dL N 0.2-1.0 Urine Nitrite - Dipstick NEGATIVE Negative Urine Leuk Esterase MODERATE Abnormal Negative Urine RBC 5-10 rbc/hpf High 0-2 Urine WBC 20-30 wbc/hpf High 0-7 Urine Epithelial Cells MANY /lpf None Seen 81 Urine Bacteria FEW None Seen Urine Fine Gran Cast 0-2 #/lpf None Seen Source: URINE, CLEAN CAT <SEE NOTE> 82 Urine Culture 07/08/2017 [place] Urine Culture URETHRAL JOSSELIN Quantity 10,000 - 50,000 <SEE NOTE> 83 Comprehensive Metabolic Panel 07/08/2017 [place] Glucose 84 mg/dL N 74- 106 BUN 3 mg/dL Low 7-18 Creatinine 0.6 mg/dL N 0.6-1.3 Glom Filtration Rate, Estimate >60 mL/min >60 If >60 mL/min >60 84 BUN/Creat 5.0 ratio Sodium 141 mmol/L N 136-145 Potassium 3.5 mmol/L N 3.5-5.1 Chloride 111 mmol/L High 98-107 Carbon Dioxide 25 mmol/L N 21-32 Anion Gap 5 mEq/L Low 8-16 Calcium 7.8 mg/dL Low 8.5-10.1 Total Protein 6.3 g/dL Low 6.4-8.2 Albumin 2.8 g/dL Low 3.4-5.0 Globulin 3.5 g/dL N 1.9-4.3 Alb/Glob 0.8 ratio Bilirubin,Total 0.2 mg/dL N 0.2-1.0 Sgot/Ast 14 U/L Low 15-37 85 SGPT/Alt 20 U/L N 12-78 Alkaline Phosphatase 76 U/L N 45-117 CBS W/Automated Diff 07/08/2017 [place] White Blood Count 3.4 K/uL N 3.1 -10.7 Red Blood Count 3.69 M/uL Low 3.90-5.40 Hemoglobin 11.8 gm/dL N 11.6-15.8 Hematocrit 34.3 % Low 36.0-46.1 Mean Cell Volume 93.0 fl N 80.9-99.0 Mean Corpuscular HGB 32.0 pg N 25.9-32.7 Mean Corpuscular HGB Conc 34.4 g/dL High 30.8-34.3 Platelet Count 189 K/uL N 150-400 Red Cell Distri Width SD 41.7 fl N 3-47 Red Cell Distri Width %CV 12.8 % N 11.7-14.4 Mean Platelet Volume 9.4 fL N 8.9-12.4 Neut% 62.1 % N 40.4-72.8 Lymph % 26.5 % N 20.0-42.0 Hetting[place] % 10.5 % N 4.3-13.2 Eo% 0.6 % N 0.0-6.6 Bas% 0.3 % N 0.0-1.1 Neut# 2.13 K/uL N 1.8-7.0 Lymph # 0.91 K/uL Low 1.0-4.0 Hettinger # 0.36 K/uL N 0.3-0.9 Eos # 0.02 K/uL N 0.0-0.5 Baso # 0.01 K/uL N 0.0-0.1 Laboratory test 07/07/2017 [place] Treponema Antibody Negative Negative 86 finding [place] Chlamydia/GC Cammie, 07/07/2017 [facility] Chlamydia Negative Negative Urine Trachomatis,Ur -PCR Neisseria Gonorrhoeae,Ur -PCR Negative Negative 87 Blood Culture 07/07/2017 [facility] Blood Culture Aerobic NO GROWTH: FINAL < SEE 88 NOTE> Blood Culture Anaerobic NO GROWTH: FINAL <SEE NOTE> 89 Laboratory test finding 07/07/2017 [facility] Magnesium 1.8 mg/dL N 1.8- 2.4 Comprehensive Metabolic Panel 07/07/2017 [facility] Glucose 103 mg/dL N 74- 106 BUN 7 mg/dL N 7-18 Creatinine 0.6 mg/dL N 0.6-1.3 Glom Filtration Rate, Estimate >60 mL/min >60 If >60 mL/min >60 90 BUN/Creat 11.6 ratio Sodium 141 mmol/L N 136-145 Potassium 3.6 mmol/L N 3.5-5.1 Chloride 112 mmol/L High 98-107 Carbon Dioxide 24 mmol/L N 21-32 Anion Gap 5 mEq/L Low 8-16 Calcium 7.3 mg/dL Low 8.5-10.1 Total Protein 5.5 g/dL Low 6.4-8.2 Albumin 2.4 g/dL Low 3.4-5.0 Globulin 3.1 g/dL N 1.9-4.3 Alb/Glob 0.8 ratio Bilirubin,Total 0.1 mg/dL Low 0.2-1.0 Sgot/Ast 11 U/L Low 15-37 91 SGPT/Alt 19 U/L N 12-78 Alkaline Phosphatase 67 U/L N 45-117 Lactic Acid 07/07/2017 [place] Lactic Acid 0.6 mmol/L N 0.4-1.9 Lab Reflex >2.0 for Sepsis? Y CBS W/Automated Diff 07/07/2017 [place] White Blood Count 4.6 K/uL N 3.1 -10.7 Red Blood Count 3.42 M/uL Low 3.90-5.40 Hemoglobin 10.8 gm/dL Low 11.6-15.8 Hematocrit 32.2 % Low 36.0-46.1 Mean Cell Volume 94.2 fl N 80.9-99.0 Mean Corpuscular HGB 31.6 pg N 25.9-32.7 Mean Corpuscular HGB Conc 33.5 g/dL N 30.8-34.3 Platelet Count 177 K/uL 150-400 Red Cell Distri Width SD 42.6 fl N 3-47 Red Cell Distri Width %CV 12.8 % N 11.7-14.4 Mean Platelet Volume 10.2 fL N 8.9-12.4 Neut% 64.1 % N 40.4-72.8 Lymph % 26.1 % N 20.0-42.0 Hettinger % 8.1 % N 4.3-13.2 Eo% 1.5 % N 0.0-6.6 Bas% 0.2 % N 0.0-1.1 Neut# 2.94 K/uL N 1.8-7.0 Lymph # 1.20 K/uL N 1.0-4.0 Hettinger # 0.37 K/uL N 0.3-0.9 Eos # 0.07 K/uL N 0.0-0.5 Baso # 0.01 K/uL N 0.0-0.1 Blood Culture 07/07/2017 [place] Blood Culture Aerobic NO GROWTH: FINAL < SEE 92 NOTE> Blood Culture Anaerobic NO GROWTH: FINAL <SEE NOTE> 93 Laboratory test 07/07/2017 [place] Rapid Abdet Non-Reactive 94 finding CBS W/Automated Diff 07/06/2017 [facility] White Blood 6.8 K/uL N 3.1-10.7 95 Count Red Blood Count 4.18 M/uL N 3.90-5.40 Hemoglobin 13.3 gm/dL N 11.6-15.8 Hematocrit 38.9 % N 36.0-46.1 Mean Cell Volume 93.1 fl N 80.9-99.0 Mean Corpuscular HGB 31.8 pg N 25.9-32.7 Mean Corpuscular HGB Conc 34.2 g/dL N 30.8-34.3 Platelet Count 258 K/uL N 150-400 Red Cell Distri Width SD 42.9 fl N 3-47 Red Cell Distri Width %CV 13.0 % N 11.7-14.4 Mean Platelet Volume 10.8 fL N 8.9-12.4 Neut% 58.3 % N 40.4-72.8 Lymph % 31.9 % N 20.0-42.0 Hettinger % 8.5 % N 4.3-13.2 Eo% 1.0 % N 0.0-6.6 Bas% 0.3 % N 0.0-1.1 Neut# 3.97 K/uL N 1.8-7.0 Lymph # 2.17 K/uL N 1.0-4.0 Hettinger # 0.58 K/uL N 0.3-0.9 Eos # 0.07 K/uL N 0.0-0.5 Baso # 0.02 K/uL N 0.0-0.1 Urinalysis With Microscopic 07/06/2017 [facility] Urine Color YELLOW Yellow Urine Clarity CLOUDY Clear Urine Glucose - Dipstick NEGATIVE mg/dL Negative Urine Bilirubin - Dipstick NEGATIVE Negative Urine Ketone NEGATIVE mg/dL Negative Urine Specific [place] 1.025 N 1.010-1.030 Urine Blood TRACE Negative Urine PH 6.0 Low 6.5-7.5 Urine Protein - Dipstick TRACE mg/dL Negative Urine Urobilinogen - Dipstick 0.2 E.U./dL N 0.2-1.0 Urine Nitrite - Dipstick NEGATIVE Negative Urine Leuk Esterase SMALL Abnormal Negative Urine RBC 0-2 rbc/hpf 0-2 Urine WBC 10-20 wbc/hpf High 0-7 Urine Epithelial Cells MANY /lpf None Seen 96 Urine Calcium Oxalate Crystals FEW None Seen Urine Bacteria FEW None Seen Urine Mucus MODERATE None Seen Source: URINE, CLEAN CAT <SEE NOTE> 97 Urine Culture 07/06/2017 [facility] Urine Culture MIXED URETHRAL F <SEE 98, 99 NOTE> Quantity > 100,000 CFU/mL 100 CBS W/Automated Diff 06/29/2017 [facility] White Blood Count 5.6 K/uL N 3.1 -10.7 101 Red Blood Count 4.20 M/uL N 3.90-5.40 Hemoglobin 13.3 gm/dL N 11.6-15.8 Hematocrit 39.2 % N 36.0-46.1 Mean Cell Volume 93.3 fl N 80.9-99.0 Mean Corpuscular HGB 31.7 pg N 25.9-32.7 Mean Corpuscular HGB Conc 33.9 g/dL N 30.8-34.3 Platelet Count 238 K/uL N 150-400 Red Cell Distri Width SD 43.2 fl N 3-47 Red Cell Distri Width %CV 13.0 % N 11.7-14.4 Mean Platelet Volume 9.9 fL N 8.9-12.4 Neut% 52.0 % N 40.4-72.8 Lymph % 36.3 % N 20.0-42.0 Hettinger % 9.9 % N 4.3-13.2 Eo% 1.4 % N 0.0-6.6 Bas% 0.4 % N 0.0-1.1 Neut# 2.93 K/uL N 1.8-7.0 Lymph # 2.05 K/uL N 1.0-4.0 Hettinger # 0.56 K/uL N 0.3-0.9 Eos # 0.08 K/uL N 0.0-0.5 Baso # 0.02 K/uL N 0.0-0.1 Comprehensive Metabolic Panel 06/29/2017 [place] Glucose 61 mg/dL Low 74 -106 BUN 11 mg/dL N 7-18 Creatinine 0.9 mg/dL N 0.6-1.3 Glom Filtration Rate, Estimate >60 mL/min >60 If >60 mL/min >60 102 BUN/Creat 12.2 ratio Sodium 140 mmol/L N 136-145 Potassium 3.6 mmol/L N 3.5-5.1 Chloride 104 mmol/L N 98-107 Carbon Dioxide 26 mmol/L N 21-32 Anion Gap 10 mEq/L N 8-16 Calcium 8.8 mg/dL N 8.5-10.1 Total Protein 7.7 g/dL N 6.4-8.2 Albumin 3.4 g/dL N 3.4-5.0 Globulin 4.3 g/dL N 1.9-4.3 Alb/Glob 0.8 ratio Bilirubin,Total 0.6 mg/dL N 0.2-1.0 Sgot/Ast 22 U/L N 15-37 SGPT/Alt 25 U/L N 12-78 Alkaline Phosphatase 98 U/L N 45-117 Laboratory 06/29/2017 [facility] Urine HCG NEGATIVE Negative 103 test finding (Qualitative) Laboratory 06/07/2017 [place] HCG,Serum NEGATIVE (Negative) 104, test finding (Qualitative) 105 CBC Auto Diff 05/27/2017 [facility] White Blood Count 5.9 10^3/uL N 3.5-10.8 Red Blood Count 4.19 10^6/uL N 4.0-5.4 Hemoglobin 13.2 g/dL N 12.0-16.0 Hematocrit 39 % N 35-47 Mean Corpuscular Volume 93 fL N 80-97 Mean Corpuscular Hemoglobin 31 pg N 27-31 Mean Corpuscular HGB Conc 34 g/dL N 31-36 Red Cell Distribution Width 13 % N 10.5-15 Platelet Count 227 10^3/uL N 150-450 Mean Platelet Volume 9 um3 N 7.4-10.4 Abs Neutrophils 3.5 10^3/uL N 1.5-7.7 Abs Lymphocytes 1.9 10^3/uL N 1.0-4.8 Abs Monocytes 0.4 10^3/uL N 0-0.8 Abs Eosinophils 0.1 10^3/uL N 0-0.6 Abs Basophils 0 10^3/uL N 0-0.2 Abs Nucleated RBC 0 10^3/uL N Granulocyte % 58.5 % N 38-83 Lymphocyte % 32.7 % N 25-47 Monocyte % 6.9 % N 1-9 Eosinophil % 1.4 % N 0-6 Basophil % 0.5 % N 0-2 Nucleated Red Blood Cells % 0 N Comp Metabolic Panel 05/27/2017 [facility] Sodium 135 mmol/L N 133- 145 Potassium 4.0 mmol/L N 3.5-5.0 Chloride 105 mmol/L N 101-111 Co2 Carbon Dioxide 26 mmol/L N 22-32 Anion Gap 4 mmol/L N 2-11 Glucose 85 mg/dL N 70-100 Blood Urea Nitrogen 10 mg/dL N 6-24 Creatinine 0.81 mg/dL N 0.51-0.95 BUN/Creatinine Ratio 12.3 N 8-20 Calcium 9.0 mg/dL N 8.6-10.3 Total Protein 6.9 g/dL N 6.4-8.9 Albumin 3.8 g/dL N 3.2-5.2 Globulin 3.1 g/dL N 2-4 Albumin/Globulin Ratio 1.2 N 1-3 Total Bilirubin 1.10 mg/dL High 0.2-1.0 Alkaline Phosphatase 72 U/L N 34-104 Alt 10 U/L N 7-52 Ast 13 U/L N 13-39 Egfr Non- 80.9 N >60 Egfr 104.1 N >60 106 Laboratory test 05/27/2017 [facility] Hemoglobin A1c 4.8 % N 4.0-5.6 107 finding (Glyco HGB) Lipid Profile 05/27/2017 [facility] Triglycerides 152 mg/dL N 108 (Trig/Chol/HDL) Cholesterol 213 mg/dL N 109 HDL Cholesterol 62.4 mg/dL N 110 LDL Cholesterol 120 mg/dL N 111 Laboratory test 05/27/2017 [facility] TSH (Thyroid 0.74 mcIU/mL N 0.34-5.60 112 finding Stim Horm) Aot Request 2017 [place] Aot Request Test(s) 113, 114 added Tests to be added: serum qual hcg Laboratory 2017 [place] HIV Screen 4TH Non Reactive Non Reactive 115, test finding Gen Reflex 116 Laboratory 2017 [place] Salicylate < 1.7 mg/dL Low 2.8-20.0 117, test finding 118 Drugs Of 2017 [place] Amphetamines Negative Abuse-Urine (Urine) Screen 7 Barbiturates (Urine) Negative Benzodiazepines (Urine) Negative Cannabinoids (Urine) POSITIVE Abnormal Cocaine Metabolite (Urine) Negative Methadone (Urine) Negative Opiates (Urine) Negative Urine Cutoffs * 119 Ua RFX Micro & Culture II 2017 [place] Urine Color YELLOW Yellow Urine Clarity CLEAR Clear Urine Glucose - Dipstick NEGATIVE mg/dL Negative Urine Bilirubin - Dipstick NEGATIVE Negative Urine Ketone NEGATIVE mg/dL Negative Urine Specific [place] 1.025 N 1.010-1.030 Urine Blood NEGATIVE Negative Urine PH 6.0 Low 6.5-7.5 Urine Protein - Dipstick TRACE mg/dL Negative Urine Urobilinogen - Dipstick 0.2 E.U./dL N 0.2-1.0 Urine Nitrite - Dipstick NEGATIVE Negative Urine Leuk Esterase NEGATIVE Negative Source: URINE, CLEAN CAT <SEE NOTE> 120 Urinalysis With Microscopic 01/03/2017 [place] Urine Color YELLOW Yellow 121 Urine Clarity CLOUDY Clear Urine Glucose - Dipstick NEGATIVE mg/dL Negative Urine Bilirubin - Dipstick NEGATIVE Negative Urine Ketone NEGATIVE mg/dL Negative Urine Specific [place] 1.020 N 1.010-1.030 Urine Blood TRACE Negative Urine PH 8.0 High 6.5-7.5 Urine Protein - Dipstick NEGATIVE mg/dL Negative Urine Urobilinogen - Dipstick 0.2 E.U./dL N 0.2-1.0 Urine Nitrite - Dipstick NEGATIVE Negative Urine Leuk Esterase TRACE Abnormal Negative Urine RBC 2-5 rbc/hpf 0-2 Urine WBC 2-5 wbc/hpf 0-7 Urine Epithelial Cells FEW /lpf None Seen Urine Amorph Sediment LARGE Negative Source: URINE, CLEAN CAT <SEE NOTE> 122 Urine HCG 01/03/2017 [place] Urine HCG NEGATIVE Negative 123 (Qualitative) (Qualitative) Source: URINE, CLEAN CAT <SEE NOTE> 124 CBS W/Automated Diff 01/03/2017 [place] White Blood Count 6.7 K/uL N 3.1 -10.7 Red Blood Count 4.00 M/uL N 3.90-5.40 Hemoglobin 12.6 gm/dL N 11.6-15.8 Hematocrit 36.6 % N 36.0-46.1 Mean Cell Volume 91.5 fl N 80.9-99.0 Mean Corpuscular HGB 31.5 pg N 25.9-32.7 Mean Corpuscular HGB Conc 34.4 g/dL High 30.8-34.3 Platelet Count 253 K/uL N 150-400 Red Cell Distri Width SD 39.5 fl N 3-47 Red Cell Distri Width %CV 12.1 % N 11.7-14.4 Mean Platelet Volume 9.7 fL N 8.9-12.4 Neut% 62.9 % N 40.4-72.8 Lymph % 27.4 % N 20.0-42.0 [place] % 8.8 % N 4.3-13.2 Eo% 0.6 % N 0.0-6.6 Bas% 0.3 % N 0.0-1.1 Neut# 4.23 K/uL N 1.8-7.0 Lymph # 1.84 K/uL N 1.0-4.0 Hetting[place] # 0.59 K/uL N 0.3-0.9 Eos # 0.04 K/uL N 0.0-0.5 Baso # 0.02 K/uL N 0.0-0.1 Comprehensive Metabolic Panel 01/03/2017 [place] Glucose 73 mg/dL Low 74 -106 BUN 9 mg/dL N 7-18 Creatinine 0.7 mg/dL N 0.6-1.3 Glom Filtration Rate, Estimate >60 mL/min >60 If >60 mL/min >60 125 BUN/Creat 12.8 ratio Sodium 139 mmol/L N 136-145 Potassium 3.6 mmol/L N 3.5-5.1 Chloride 108 mmol/L High 98-107 Carbon Dioxide 25 mmol/L N 21-32 Anion Gap 6 mEq/L Low 8-16 Calcium 9.0 mg/dL N 8.5-10.1 Total Protein 7.6 g/dL N 6.4-8.2 Albumin 3.4 g/dL N 3.4-5.0 Globulin 4.2 g/dL N 1.9-4.3 Alb/Glob 0.8 ratio Bilirubin,Total 0.2 mg/dL N 0.2-1.0 Sgot/Ast 21 U/L N 15-37 SGPT/Alt 30 U/L N 12-78 Alkaline Phosphatase 97 U/L N 45-117 Laboratory test 05/09/2016 [place] Thyroid Stim 1.29 uIU/mL N 0.30-4.20 126 finding Hormone Laboratory test 05/09/2016 [place] Treponema Nonreactive N Nonreactive 127 finding Antibody [place] Hepatitis 05/09/2016 [place] Hepatitis A Nonreactive N Nonreactive 128 Evaluation Antibody IgM Hepatitis B Surface Antigen Nonreactive N Nonreactive 129 Hepatitis B Core IgM Nonreactive N Nonreactive 130 Hepatitis C Antibody Nonreactive N Nonreactive Signal/Cutoff ratio < 0.02 N <0.80 131 Laboratory 05/09/2016 [place] Antibody Nonreactive N Nonreactive 132, test finding Detection-Hiv1/2 133 SCRN Chlamydia/GC 05/09/2016 [place] Chlamydia Negative N Negative Camm[place] Trachomatis, Cammie Neisseria Gonorrhoeae, Cammie Negative N Negative Please note: (SEE NOTE) N 134 Genital Culture W/ Gram 05/09/2016 [place] Gram Stain GRAM STAIN SUSPI < SEE N 135 Stain NOTE> Gram Stain MANY GRAM VARIAB <SEE NOTE> N 136 Gram Stain RARE GR POS. LUCAS <SEE NOTE> N 137 Gram Stain NO WHITE BLOOD C <SEE NOTE> N 138 Genital Culture GARDNERELLA VAGI <SEE NOTE> Abnormal 139 Quantity MANY N Hemoglobin/Hematocrit 12/26/2015 [place] Hemoglobin 12.7 gm/dL 11.6- 15.8 Hematocrit 36.8 % 36.0-46.1 Laboratory test 12/26/2015 [place] Aot Request Test(s) added 140 finding Laboratory test 12/26/2015 [place] Urine HCG POSITIVE High Negative finding (Qualitative) Urine Screen 12/26/2015 [place] Ua RFX Micro + See Note 141 Culture II Urinalysis With 12/26/2015 [place] Urine Color YELLOW Yellow Microscopic Urine Clarity SL CLOUDY Clear Urine Glucose - Dipstick NEGATIVE mg/dL Negative Urine Bilirubin - Dipstick NEGATIVE Negative Urine Ketone NEGATIVE mg/dL Negative Urine Specific [place] 1.015 1.010-1.030 Urine Blood NEGATIVE Negative Urine PH 7.0 6.5-7.5 Urine Protein - Dipstick NEGATIVE mg/dL Negative Urine Urobilinogen - Dipstick 0.2 E.U./dL 0.2-1.0 Urine Nitrite - Dipstick NEGATIVE Negative Urine Leuk Esterase MODERATE High Negative Urine RBC NONE SEEN rbc/hpf 0-2 Urine WBC 5-10 wbc/hpf 0-7 Urine Epithelial Cells FEW NONESEEN/lpf Urine Bacteria FEW NONESEEN Urine Amorph Sediment MODERATE Negative Urine Culture 12/26/2015 [place] Urine Culture See Note 142 Comprehensive Metabolic 12/26/2015 [place] Glucose 94 mg/dL 74-106 Panel BUN 10 mg/dL 7-18 Creatinine 0.7 mg/dL 0.6-1.3 Glom Filtration Rate, Estimate >60 mL/min >60 If >60 mL/min >60 143 BUN/Creat 14.2 ratio Sodium 136 mmol/L 136-145 Potassium 3.6 mmol/L 3.5-5.1 Chloride 103 mmol/L 98-107 Carbon Dioxide 24 mmol/L 21-32 Anion Gap 9 mEq/L 8-16 Calcium 8.7 mg/dL 8.5-10.1 Total Protein 8.1 g/dL 6.4-8.2 Albumin 3.7 g/dL 3.4-5.0 Globulin 4.4 g/dL High 1.9-4.3 Alb/Glob 0.8 ratio Bilirubin,Total 0.5 mg/dL 0.2-1.0 Sgot/Ast 13 U/L Low 15-37 144 SGPT/Alt 21 U/L 12-78 Alkaline Phosphatase 72 U/L 45-117 CBS W/Automated Diff 12/26/2015 [place] White Blood Count 8.5 K/uL 3.1- 10.7 [...] 40.4-72.8 Lymph % 16.4 % Low 17.0-46.1 Het[place] % 6.6 % 4.3-13.2 Eo% 0.1 % 0.0-6.6 Bas% 0.4 % 0.0-1.1 Neut# 6.52 K/uL 1.8-7.0 Lymph # 1.40 K/uL Low 1.8-7.0 Hettinger # 0.56 K/uL 0.3-0.9 Eos # 0.01 K/uL 0.0-0.5 Baso # 0.03 K/uL 0.0-0.1 Laboratory test finding 12/26/2015 [place] HCG, Quant 3012.0 mIU/mL 145 Differential-WBC 12/26/2015 [place] Total Cells Counted 100 #CELLS Band% 3 % 0-8 Neutrophils% 79 % High 33-73 Lymph% 13 % Low 17-56 Monocyte% 5 % 0-10 Platelet Estimate NORMAL RBC Morphology NORMAL Drugs Of Abuse-Urine Screen 12/26/2015 [place] Amphetamines (Urine) Negative 7 Barbiturates (Urine) Negative Benzodiazepines (Urine) Negative Cannabinoids (Urine) POSITIVE High Cocaine Metabolite (Urine) Negative Methadone (Urine) Negative Opiates (Urine) Negative Urine Cutoffs * 146 Laboratory test 08/14/2015 [facility] [place] Urine Culture SPECIMEN 147 finding 113 [facility]OV[facility] BRUNO DESCRI> (607)- - Laboratory test 08/05/2015 [facility] Urine Culture SEE RESULT 148 finding BELOW Laboratory test 02/13/2015 [facility] [place] TSH,Ultrasensi 0.943 mIU/L ( 0.360 finding 113 [place] BRUNO tive @ -4.170 (607)- - ) 25 Hydroxy Vit D @ 35 ng/mL (31-100) 149 Lipid 02/13/2015 [facility] [place] Cholesterol @ 174 mg/dL (0-200) 113 [place]UNO (607)- - Triglyceride @ 134 mg/dL (30-200) HDL Cholesterol @ 62 mg/dL (>40) 150 Chol/HDL Ratio 2.8 RATIO 151 LDL Chol (Calc) 85 mg/dL (<130) 152 Hemoglobin A1c 02/13/2015 [facility] [place] Hemoglobin A1c @ 4.7 % (4.0-6.0) 113 [place] BRUNO (607)- - Est Average Glucose 88 mg/dL 153 Laboratory test 02/13/2015 [facility] [place] CRP, Sensitive @ 1.7 mg/L 154 finding 113 [place]UN[place] (607)- - CMP 02/13/2015 [facility] [place] Sodium 141 mmol/L (136-14 113 IN[place] BRUNO [...] >90 ml/min/1.73m2 (>59) GFR Interpretation <SEE NOTE> 155 CBC With Diff 02/13/2015 [facility] [place] WBC 6.4 10*3/uL (4.1-11.0) 113 INNOV[place] BRUNO (607)- - RBC 4.16 10*6/uL (4.00-5.40) HGB 12.9 g/dL (12.0-16.0) HCT 38.9 % (36.0-47.0) MCV 93.6 fL (80.0-95.0) MCH 31.1 pg (27.0-32.0) MCHC 33.3 g/dL (32.0-36.0) RDW 13.7 % (10.5-14.5) PLT 195 10*3/uL (150-450) MPV 8.8 fL (7.1-10.7) Neut % 56.9 % (35.0-75.0) Lymph % 36.0 % (16.0-52.0) Hettinger % 6.1 % (0.0-8.0) Eos % 0.6 % (0.0-5.0) Baso % 0.4 % (0.0-4.0) Neut # 3.7 10*3/uL (1.8-7.7) Lymph # 2.3 10*3/uL (1.2-4.8) Hettinger # 0.4 10*3/uL (0.0-0.8) Eos # 0.0 10*3/uL (0.0-0.5) Baso # 0.0 10*3/uL (0.0-0.2) 1 Prescribed Medications: Hydrocodone (Hydrocodone), Cyclobenzaprine (Cyclobenzaprine), Abilify (Aripiprazole), Fluoxetine (Fluoxetine), Ibuprofen (Ibuprofen), Acetaminophen (Acetaminophen), NAPROXEN, TYLENOL (ACTEAMINOPHEN) , IMITREX, ZOFRAN 2 Prescribed Medications: Hydrocodone (Hydrocodone), Cyclobenzaprine ( Cyclobenzaprine), Abilify (Aripiprazole), Fluoxetine (Fluoxetine), Ibuprofen ( Ibuprofen), Acetaminophen (Acetaminophen), NAPROXEN, TYLENOL (ACTEAMINOPHEN), IMITREX, ZOFRAN 3 Prescribed Medications: Hydrocodone (Hydrocodone), Cyclobenzaprine ( Cyclobenzaprine), Abilify (Aripiprazole), Fluoxetine (Fluoxetine), Ibuprofen ( Ibuprofen), Acetaminophen (Acetaminophen), NAPROXEN, TYLENOL (ACTEAMINOPHEN), IMITREX, ZOFRAN 4 Positive >2000 Consistent The common brand name for Cyclobenzaprine is Flexeril. Prescribed Medications: Hydrocodone (Hydrocodone), Cyclobenzaprine ( Cyclobenzaprine), Abilify (Aripiprazole), Fluoxetine (Fluoxetine), Ibuprofen ( Ibuprofen), Acetaminophen (Acetaminophen), NAPROXEN, TYLENOL (ACTEAMINOPHEN), IMITREX, ZOFRAN 5 Negative Inconsistent Prescribed Medications: Hydrocodone (Hydrocodone), Cyclobenzaprine ( Cyclobenzaprine), Abilify (Aripiprazole), Fluoxetine (Fluoxetine), Ibuprofen ( Ibuprofen), Acetaminophen (Acetaminophen), NAPROXEN, TYLENOL (ACTEAMINOPHEN), IMITREX, ZOFRAN 6 Prescribed Medications: Hydrocodone (Hydrocodone), Cyclobenzaprine ( Cyclobenzaprine), Abilify (Aripiprazole), Fluoxetine (Fluoxetine), Ibuprofen ( Ibuprofen), Acetaminophen (Acetaminophen), NAPROXEN, TYLENOL (ACTEAMINOPHEN), IMITREX, ZOFRAN 7 Prescribed Medications: Hydrocodone (Hydrocodone), Cyclobenzaprine ( Cyclobenzaprine), Abilify (Aripiprazole), Fluoxetine (Fluoxetine), Ibuprofen ( Ibuprofen), Acetaminophen (Acetaminophen), NAPROXEN, TYLENOL (ACTEAMINOPHEN), IMITREX, ZOFRAN 8 Prescribed Medications: Hydrocodone (Hydrocodone), Cyclobenzaprine ( Cyclobenzaprine), Abilify (Aripiprazole), Fluoxetine (Fluoxetine), Ibuprofen ( Ibuprofen), Acetaminophen (Acetaminophen), NAPROXEN, TYLENOL (ACTEAMINOPHEN), IMITREX, ZOFRAN 9 Prescribed Medications: Hydrocodone (Hydrocodone), Cyclobenzaprine ( Cyclobenzaprine), Abilify (Aripiprazole), Fluoxetine (Fluoxetine), Ibuprofen ( Ibuprofen), Acetaminophen (Acetaminophen), NAPROXEN, TYLENOL (ACTEAMINOPHEN), IMITREX, ZOFRAN 10 3979 Positive Consistent 11 Negative Consistent 12 2832 Positive Consistent 13 Prescribed Medications: Hydrocodone (Hydrocodone), Cyclobenzaprine ( Cyclobenzaprine), Abilify (Aripiprazole), Fluoxetine (Fluoxetine), Ibuprofen ( Ibuprofen), Acetaminophen (Acetaminophen), NAPROXEN, TYLENOL (ACTEAMINOPHEN), IMITREX, ZOFRAN 14 Prescribed Medications: Hydrocodone (Hydrocodone), Cyclobenzaprine ( Cyclobenzaprine), Abilify (Aripiprazole), Fluoxetine (Fluoxetine), Ibuprofen ( Ibuprofen), Acetaminophen (Acetaminophen), NAPROXEN, TYLENOL (ACTEAMINOPHEN), IMITREX, ZOFRAN 15 Prescribed Medications: Hydrocodone (Hydrocodone), Cyclobenzaprine ( Cyclobenzaprine), Abilify (Aripiprazole), Fluoxetine (Fluoxetine), Ibuprofen ( Ibuprofen), Acetaminophen (Acetaminophen), NAPROXEN, TYLENOL (ACTEAMINOPHEN), IMITREX, ZOFRAN 16 Prescribed Medications: Hydrocodone (Hydrocodone), Cyclobenzaprine ( Cyclobenzaprine), Abilify (Aripiprazole), Fluoxetine (Fluoxetine), Ibuprofen ( Ibuprofen), Acetaminophen (Acetaminophen), NAPROXEN, TYLENOL (ACTEAMINOPHEN), IMITREX, ZOFRAN 17 1250 Positive Inconsistent The common brand name for Butalbital is Fioricet. 18 Prescribed Medications: Hydrocodone (Hydrocodone), Cyclobenzaprine ( Cyclobenzaprine), Abilify (Aripiprazole), Fluoxetine (Fluoxetine), Ibuprofen ( Ibuprofen), Acetaminophen (Acetaminophen), NAPROXEN, TYLENOL (ACTEAMINOPHEN), IMITREX, ZOFRAN 19 Positive >2000 Consistent 20 Prescribed Medications: Hydrocodone (Hydrocodone), Cyclobenzaprine ( Cyclobenzaprine), Abilify (Aripiprazole), Fluoxetine (Fluoxetine), Ibuprofen ( Ibuprofen), Acetaminophen (Acetaminophen), NAPROXEN, TYLENOL (ACTEAMINOPHEN), IMITREX, ZOFRAN 21 145.9 Positive Inconsistent [id number] is a metabolite of THC(Marijuana) Prescribed Medications: Hydrocodone (Hydrocodone), Cyclobenzaprine ( Cyclobenzaprine), Abilify (Aripiprazole), Fluoxetine (Fluoxetine), Ibuprofen ( Ibuprofen), Acetaminophen (Acetaminophen), NAPROXEN, TYLENOL (ACTEAMINOPHEN), IMITREX, ZOFRAN 22 UTI, BACK PAIN, HIPS 23 10,000 - 50,000 CFU/mL 24 CULTURE TO FOLLOW 25 URINE, CLEAN CATCH 26 POSSIBLE UROGENITAL CONTAMINATION. 27 URINE, CLEAN CATCH 28 FIRST MORNING SPECIMENS GENERALLY CONTAIN THE HIGHEST CONCENTRATION OF HCG AND ARE RECOMMENDED FOR EARLY DETECTION OF . Method: Quidel QuickVue One-Step Immunoassay 29 URINE, CLEAN CATCH 30 Reference range: 0 to 49 Unit: 1/dil 31 Reference range: 0 to 49 Unit: 1/dil 32 Reference range: 0 to 49 Unit: 1/dil 33 Reference range: 0 to 49 Unit: 1/dil PERFORMED AT [facility], [address] [place] [address] 34 UTI SYMPTOMS, RASH ON ARMS, NAUSEA 35 POSSIBLE UROGENITAL CONTAMINATION. 36 URINE, CLEAN CATCH 37 A negative result for either C. trachomatis and/or N. gonorrhoeae does not preclued an infection because results are dependent on adequate specimen collection, absence of inhibitors, and sufficient DNA to be detected. 38 [id number] 39 SEE RESULT BELOW Name: DONALD IVAN : [address]: Carlitos Gore MD Acct: [id number] Unit: [id number] AGE: 33 Location: [facility] Re05/12/18 SEX: F Status: DEP ER SPEC: [id number] HECTOR: [address] [facility] [address]: Carlitos Gore MD REQ: [id number] RECD: 05/12/18 STATUS: OMKAR [facility] DR: Alexia Santiago MD _ SOURCE: URINE [facility]: ORDERED: Urine Culture COMMENTS: [id number] Procedure Result Reported Site Urine Culture Final 05/14/18- 0805 ML Organism 1 ESCHERICHIA COLI [place] Count 75-100,000 (Many) CFU/ML Organism 2 NORMAL JOSSELIN [place] Count 1-10,000 (Few) CFU/ML 1. ESCHERICHIA COLI M.I.C. RX --------- ------ Ampicillin >=32 R Cefazolin <=4 S Cefepime <=1 S Ceftriaxone <=1 S Ciprofloxacin >=4 R Gentamicin <=1 S Levofloxacin >=8 R Meropenem <=0.25 S Nitrofurantoin <=16 S Tetracycline <=1 S Pipercillin/Tazobactam <=4 S Trimethoprim/Sulfamethoxazole <=20 S Amoxicillin/Clavulanic Acid 8 S Aztreonam <=1 S Contact the Microbiology Department for any additional antibiotic reporting. * ML - Main Lab . END OF REPORT DEPARTMENT OF PATHOLOGY, [address] [place] [address] Haim Pratt M.D. Director [facility] # [id number] 40 Zoogler: [id number] If is still suspected, please repeat test after 48 to 72 hours. 41 Zoogler: [id number] 42 M51.37 F31.81 E55.9 E66.3 N20.0 M79.606 K86.1 43 Elevated levels of HbA1c suggest the need for more aggressive treatment of glycemia. The [place] Diabetes [employer] recommends that a primary goal of therapy should be a HbA1c of <7% and that physicians should re-evaluate the treatment regimen in patients with HbA1c values consistently >8%. 44 Reference Guidelines*: Desirable: ........... < 200 mg/dL Borderline High: ..... 200-239 mg/dL High: ................ >=240 mg/dL * The National Cholesterol Education Program (NCEP) 45 Reference Guidelines*: Normal: ............. < 150 mg/dL Borderline High: .... 150-199 mg/dL High: ............... 200-499 mg/dL Very High: .......... > 500 mg/dL * Source: National Cholesterol Education Program (NCEP) 46 Reference Guidelines*: Low HDL: ..... < 40 mg/dL Normal: ..... 40-60 mg/dL Desirable: ... > 60 mg/dL *The National Cholesterol Education Program(NCEP) 47 Reference Guidelines*: Optimal:........... <100 mg/dL Near Optimal....... 100-129 mg/dL Borderline High.... 130-159 mg/dL High............... 160-189 mg/dL Very High.......... >=190 mg/dL * Source: National Cholesterol Education Program (NCEP) 48 Note: Persistent reduction for 3 months or more in an eGFR <60 mL/min/1.73 m2 defines CKD. Patients with eGFR values >/=60 mL/min/1.73 m2 may also have CKD if evidence of persistent proteinuria is present. The original MDRD equation for estimated GFR is not valid for patients less than 18 years of age. Additional information may be found at www.kdoqi.org. 49 Method: Sediplast Modified Westergren 50 Vitamin D deficiency has been defined by the [place] of Medicine and an Endocrine Society practice guideline as a level of serum 25-OH vitamin D less than 20 ng/mL (1,2). The Endocrine Society went on to further define vitamin D insufficiency as a level between 21 and 29 ng/mL (2). 1. IOM ([place] of [employer]). 2010. Dietary reference intakes for calcium and D. [place]: The National AcademLangoLab Press. 2. Leonor MF, Yas PENA, Damaris TYLER, et al. Evaluation, treatment, and prevention of vitamin D deficiency: an Endocrine Society clinical practice guideline. JCEM. 2010; 96(7):1911-30. Performed at: RN - [facility] [address] [id number] Critical Care Registered Nurse: Anaid Walker MD, Phone: [phone] 51 BACK PAIN, CRAMPS, TYLER, NAUSEA, ON NEW ABX 52 A negative result for either C. trachomatis and/or N. gonorrhoeae does not preclued an infection because results are dependent on adequate specimen collection, absence of inhibitors, and sufficient DNA to be detected. 53 URINE WBC >100/HPF 54 URINE, CLEAN CATCH 55 10,000 - 50,000 CFU/mL 56 CALLED LIPASE TO VERONICA Scott AT 202402/23/18 by [email or web address] 57 Method: Quidel QuickVue One-Step Immunoassay 58 Note: Persistent reduction for 3 months or more in an eGFR <60 mL/min/1.73 m2 defines CKD. Patients with eGFR values >/=60 mL/min/1.73 m2 may also have CKD if evidence of persistent proteinuria is present. The original MDRD equation for estimated GFR is not valid for patients less than 18 years of age. Additional information may be found at www.[email or web address]. 59 Values below the stated reference ranges of AST and ALT can be seen in normal populations. Clinical correlation is suggested. 60 KIDNEY INFECTION, BACK PAIN, NAUSEA 61 NO GROWTH: FINAL REPORT 62 POSSIBLE UROGENITAL CONTAMINATION. 63 URINE, CLEAN CATCH 64 UTI, BACK PAIN 65 POSSIBLE UROGENITAL CONTAMINATION. 66 URINE, CLEAN CATCH 67 BETA STREPTOCOCCUS GROUP B 68 > 100,000 CFU/mL 69 PENICILLIN OR AMPICILLIN. 70 10,000 - 50,000 CFU/mL 71 A negative result for either C. trachomatis and/or N. gonorrhoeae does not preclued an infection because results are dependent on adequate specimen collection, absence of inhibitors, and sufficient DNA to be detected. 72 POSSIBLE UROGENITAL CONTAMINATION. 73 URINE, CLEAN CATCH 74 Zoogler: [id number] 76 SEE RESULT BELOW Name: DONALD IVNA : [address]: Ricardo Baker MD Acct: [id number] Unit: [id number] AGE: 32 Location: [facility] Re12/22/17 SEX: F Status: DEP ER SPEC: [id number] HECTOR: 12/22/17-[address]: Maritza Black NP REQ: [id number] RECD: 12/23/17-1037 STATUS: COMP [facility] DR: Alexia Baker MD _ SOURCE: URINE SPDESC: ORDERED: Urine Culture COMMENTS: [id number] Procedure Result Reported Site Urine Culture Final 12/24/17- 0755 ML No Growth (<1,000 CFU/mL) * ML - Main Lab . END OF REPORT DEPARTMENT OF PATHOLOGY, [address] [place] [address] Haim Pratt M.D. Director [facility] # [id number] 77 UTI, BLOOD IN URINE 78 10,000 - 50,000 CFU/mL 79 URINE, CLEAN CATCH 80 ACUTE PYELONEPHRITIS 81 POSSIBLE UROGENITAL CONTAMINATION. 82 URINE, CLEAN CATCH 83 10,000 - 50,000 CFU/mL 84 Note: Persistent reduction for 3 months or more in an eGFR <60 mL/min/1.73 m2 defines CKD. Patients with eGFR values >/=60 mL/min/1.73 m2 may also have CKD if evidence of persistent proteinuria is present. The original MDRD equation for estimated GFR is not valid for patients less than 18 years of age. Additional information may be found at www.[email or web address]. 85 Values below the stated reference ranges of AST and ALT can be seen in normal populations. Clinical correlation is suggested. 86 Performed at: [facility] [address] [id number] Critical Care Registered Nurse: Carlitos George MD, Phone: [phone] 87 A negative result for either C. trachomatis and/or N. gonorrhoeae does not preclued an infection because results are dependent on adequate specimen collection, absence of inhibitors, and sufficient DNA to be detected. 88 NO GROWTH: FINAL REPORT 89 NO GROWTH: FINAL REPORT 90 Note: Persistent reduction for 3 months or more in an eGFR <60 mL/min/1.73 m2 defines CKD. Patients with eGFR values >/=60 mL/min/1.73 m2 may also have CKD if evidence of persistent proteinuria is present. The original MDRD equation for estimated GFR is not valid for patients less than 18 years of age. Additional information may be found at www.[email or web address]. 91 Values below the stated reference ranges of AST and ALT can be seen in normal populations. Clinical correlation is suggested. 92 NO GROWTH: FINAL REPORT 93 NO GROWTH: FINAL REPORT 94 NOTE: A NON-REACTIVE RESULT INDICATES THAT HIV-1 (HTLV III) ANTIBODIES HAVE NOT BEEN FOUND IN THIS PATIENT SPECIMEN. A NON-REACTIVE RESULT, HOWEVER, DOES NOT PRECLUDE PREVIOUS EXPOSURE OF INFECTION WITH HIV-1. * [place] STATE LAW PROHIBITS THE REDISCLOSURE OF THIS RESULT * * TO ANY UNAUTHORIZED DEMOCRAT. * Method: Uni-Gold Recombigen HIV 1/2 Rapid Immunoassay [employer] 95 KIDNEY INF, BACK HURTS, FEVER, THROWING UP 96 POSSIBLE UROGENITAL CONTAMINATION. 97 URINE, CLEAN CATCH 98 ACUTE PYELONEPHRITIS 99 MIXED URETHRAL JOSSELIN 100 > 100,000 CFU/mL SPECIMEN IS A MIX OF GRAM NEGATIVE AND GRAM POSITIVE ORGANISMS. UNABLE TO DETERMINE WHICH ORGANISMS ARE FROM THE URINARY TRACT OR THE RESULT OF SKIN VAGINAL PERIANAL CONTAMINATION DURING COLLECTION. SUGGEST REPEAT SPECIMEN IF CLINICALLY INDICATED. 101 POSS UTI, HAVING PAIN, X4 DAYS 102 Note: Persistent reduction for 3 months or more in an eGFR <60 mL/min/1.73 m2 defines CKD. Patients with eGFR values >/=60 mL/min/1.73 m2 may also have CKD if evidence of persistent proteinuria is present. The original MDRD equation for estimated GFR is not valid for patients less than 18 years of age. Additional information may be found at www.[email or web address]. 103 FIRST MORNING SPECIMENS GENERALLY CONTAIN THE HIGHEST CONCENTRATION OF HCG AND ARE RECOMMENDED FOR EARLY DETECTION OF . Method: Quidel QuickVue One-Step Immunoassay 104 MIGRAINE, NAUSEA 105 Method: Quidel QuickVue One-Step Immunoassay 106 Because ethnic data is not always readily [...] 15-29 5 Kidney failure <15 (or dialysis) 107 Therapeutic target for the treatment of diabetes mellitus patients is <7% HBA1C, and in selective patients <6.0%. Please refer to [place] Diabetes Association diabetic care guidelines for further information. 108 Desirable: <150 Borderline High: 150-199 High: 200-499 Very High: >500 109 Desirable: <200 Borderline High: 200-239 High: >239 110 Low: <40 Desirable: 40-60 High: >60 111 Desirable: <100 Near Optimal: 100-129 Borderline High: 130-159 High: 160-189 Very High: >189 112 [id number] 113 EVAL 114 Tests: serum qual hcg Instructions: 115 PSYCH SERVICES 116 Performed at: RN - [facility] [address] [id number] Critical Care Registered Nurse: Anaid Walker MD, Phone: [phone] 117 EVAL 118 THERAPEUTIC RANGE: 15-30 mg/dL POTENTIAL TOXICITY VARIES WITH TIME FROM INGESTION. PLEASE CONSULT APPROPRIATE NOMOGRAM. 119 URINE SPECIMENS ARE SCREENED AT THE LISTED CUTOFFS DRUG CLASS INITIAL TEST LEVEL Amphetamines 1000 ng/mL Barbiturates 200 ng/mL Benzodiazepines 200 ng/mL Cannabinoids 50 ng/mL Cocaine Metabolite 300 ng/mL Methadone 300 ng/mL Opiates 300 ng/mL Any PRESUMPTIVE POSITIVE findings are UNCONFIRMED. Confirmatory testing is suggested if findings are unexpected. Please contact laboratory if confirmatory testing is desired. SPECIMENS ARE HELD FOR 72 HOURS. 120 URINE, CLEAN CATCH 121 ABD NORMAL VAGINAL BLEEDING, BACK PAIN, WEAK 122 URINE, CLEAN CATCH 123 FIRST MORNING SPECIMENS GENERALLY CONTAIN THE HIGHEST CONCENTRATION OF HCG AND ARE RECOMMENDED FOR EARLY DETECTION OF . Method: Quidel QuickVue One-Step Immunoassay 124 URINE, CLEAN CATCH 125 Note: Persistent reduction for 3 months or more in an eGFR <60 mL/min/1.73 m2 defines CKD. Patients with eGFR values >/=60 mL/min/1.73 m2 may also have CKD if evidence of persistent proteinuria is present. The original MDRD equation for estimated GFR is not valid for patients less than 18 years of age. Additional information may be found at www.[email or web address]. 126 Z11.3 Z84.89 127 Please Note: A nonreactive test result does not exclude the possibility of exposure to, or infection with syphilis. T. pallidum antibodies may be undetectable in some stages of the infection and in some clinical conditions. 128 IgM antibodies to HAV not detected; does not exclude early acute or recovered HAV infection. 129 HBsAg not detected; does not exclude the possibility of exposure to or early acute infections with HBV. 130 IgM anti-HBc not detected. Does not exclude the possibility of exposure to or infection with HBV. 131 Antibodies to HCV not detected; does not exclude early acute HCV infection. 132 Z11.3 Z84.89 A64 133 NOTE: A NON-REACTIVE RESULT INDICATES THAT HIV-1 AND HIV-2 ANTIBODIES HAVE NOT BEEN FOUND IN THIS PATIENT SPECIMEN. A NON-REACTIVE RESULT, HOWEVER, DOES NOT PRECLUDE PREVIOUS EXPOSURE OF INFECTION WITH HIV. * [place] STATE LAW PROHIBITS THE REDISCLOSURE OF THIS RESULT * * TO ANY UNAUTHORIZED DEMOCRAT. * 134 A negative result for either C. trachomatis [...] inhibitors, and sufficient DNA to be detected. 135 GRAM STAIN SUSPICIOUS FOR BACTERIAL VAGINOSIS 136 MANY GRAM VARIABLE COCCOBACILLI [address] POS. BACILLI SUGGESTIVE OF LACTOBACILLUS SP. 138 NO WHITE BLOOD CELLS 139 GARDNERELLA VAGINALIS 140 Tests: manual diff on cbc Instructions: 141 12/26/15 LAB.DWM Deleted by [facility] [place] Organism 1 ! URETHRAL JOSSELIN Quantity ! 50,000 - 100,000 CFU/mL 143 Note: Persistent reduction for 3 months or more in an eGFR <60 mL/min/1.73 m2 defines CKD. Patients with eGFR values >/=60 mL/min/1.73 m2 may also have CKD if evidence of persistent proteinuria is present. The original MDRD equation for estimated GFR is not valid for patients less than 18 years of age. Additional information may be found at www.[email or web address]. 144 Values below the stated reference ranges of AST and ALT can be seen in normal populations. Clinical correlation is suggested. 145 Approximate Gestational Age and Total BHCG Range: 0.2 - 1 Week........................5-50 mIU/mL 1 - 2 Weeks.....................50-500 mIU/mL 2 - 3 Weeks..................100-5,000 mIU/mL 3 - 4 Weeks.................500-10,000 mIU/mL 4 - 5 Weeks...............1,000-50,000 mIU/mL 5 - 6 Weeks.............10,000-100,000 mIU/mL 6 - 8 Weeks.............15,000-200,000 mIU/mL 2 - 3 Months............10,000-100,000 mIU/mL 146 URINE SPECIMENS ARE SCREENED AT THE LISTED CUTOFFS DRUG CLASS INITIAL TEST LEVEL Amphetamines 1000 ng/mL Barbiturates 200 ng/mL Benzodiazepines 200 ng/mL Cannabinoids 50 ng/mL Cocaine Metabolite 300 ng/mL Methadone 300 ng/mL Opiates 300 ng/mL Any POSITIVE findings are UNCONFIRMED. Confirmatory testing is suggested if findings are unexpected. Please contact laboratory if confirmatory testing is desired. SPECIMENS ARE HELD FOR 72 HOURS. 147 SPECIMEN DESCRIPTION BLADDER URINE CULTURE RESULTS MIXED UROGENITAL JOSSELIN; PLEASE SUBMIT A NEW SPEC IMEN IF CLINICALLY INDICATED. REPORT STATUS FINAL 08/16/2015 148 SEE RESULT BELOW Name: DONALD IVAN : [address]: Dennis Chanel MD Acct: [id number] Unit: [id number] AGE: 30 Location: [facility] Re08/05/15 SEX: F Status: DEP ER SPEC: [id number] HECTOR: 08/05/15-[address] [facility] [address]: Dennis Chanel MD REQ: [id number] RECD: 08/06/15 STATUS: OMKAR HINKLE DR: [facility] Lisbet Kohler Ronaldo DIRECTOR [employer] _ SOURCE: URINE SPDESC: ORDERED: Urine Culture Procedure Result Reported Site Urine Culture Final 08/08/15- 0910 ML Organism 1 ESCHERICHIA COLI [place] Count 10-25,000 (Moderate) CFU/ML 1. ESCHERICHIA COLI [...] antibiotic reporting. * ML - MAIN LAB ([facility]) . END OF REPORT * ML=Testing performed at Main Lab DEPARTMENT OF PATHOLOGY, [address] [place] [address] Haim Pratt M.D. Director [facility] # [id number] 149 A REVIEW OF THE LITERATURE SUGGESTS THE FOLLOWING RANGES FOR THE CLASSIFICATION OF 25-OH VITAMIN D STATUS: VITAMIN D STATUS 25-OH VITAMIN D DEFICIENCY <20 NG/ML INSUFFICIENCY 20-30 NG/ML SUFFICIENCY 31 - 100 NG/ML TOXICITY > 100 NG/ML A PEDIATRIC REFERENCE RANGE HAS NOT BEEN ESTABLISHED USING THIS METHOD. 150 PER NCEP ATP III GUIDELINES: RESULTS LOWER THAN 40 MG/DL ARE SUGGESTIVE OF INCREASED RISK FOR CORONARY ARTERY DISEASE. RESULTS > OR=TO 60 MG/DL ARE CONSIDERED A NEGATIVE RISK FACTOR. 151 INTERPRETATION OF CHOL-HDL RATIO CHD RISK FEMALE MALE VERY HIGH >8.3 >14.3 HIGH 5.6- 8.3 6.7- 14.3 AVERAGE 3.7- 5.6 4.0- 6.7 BELOW AVERAGE 2.5- 3.7 2.7- 4.0 PROTECTED <2.5 <2.7 152 PER NCEP ATP III GUIDELINES: OPTIMAL < 100 NEAR OPTIMAL 100 - 129 BORDERLINE HIGH 130 - 159 HIGH 160 - 189 VERY HIGH > 189 153 HEMOGLOBIN A1c INTERPRETATION: 4.0-6.0% GOOD GLYCEMIC CONTROL 6.1-6.5% AT RISK FOR HYPERGLYCEMIA >6.5% DIABETIC/ POOR GLYCEMIC CONTROL REFERENCE: DIABETES CARE 32(7), 2009 IF A1c RESULT IS INCONSISTENT WITH CLINICAL ESTIMATES OF GLYCEMIC CONTROL, AN INTERFERING Hb VARIANT SHOULD BE CONSIDERED. 154 RELATIVE RISK CATEGORY AND AVERAGE hs-CRP LEVEL: LOW RISK < 1.0 MG/L AVERAGE RISK 1.0 to 3.0 MG/L HIGH RISK > 3.0 MG/L 155 NORMAL KIDNEY FUNCTION OR MILD DISEASE - GFR >OR=60 CHRONIC KIDNEY DISEASE - GFR 15 - 59 RENAL FAILURE - GFR <15 Est. GFR calculation based on the MDRD study equation, which assumes a steady state for creatinine. Est. GFR should not be used for medication dosing. Procedures Date Code Description Status 09/04/2016 94808 Spirometry Completed 09/04/2016 68460 Tympanometry Completed 02/13/2015 39354 Visual Screening Test Completed 02/13/2015 77004 Audiometry, Bekesy, Screening Completed Encounters Type Date Location Provider Dx Diagnosis Office Visit 11/26/2018 10:15a [facility] [facility] Carlitos Morales, N.P. 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 M54.2 Cervicalgia F31.81 Bipolar II disorder F41.9 Anxiety disorder, unspecified G43.119 Migraine with aura, intractable, without status migrainosus G47.00 Insomnia, unspecified L20.9 Atopic dermatitis, unspecified J30.9 Allergic rhinitis, unspecified M79.606 Pain in leg, unspecified N20.0 Calculus of kidney E55.9 Vitamin D deficiency, unspecified E66.3 Overweight K86.1 Other chronic pancreatitis E04.0 Nontoxic diffuse goiter R11.0 Nausea M54.5 Low back pain M54.42 Lumbago with sciatica, left side M54.31 Sciatica, right side Z79.891 FDC (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 analgesic R30.0 Dysuria R19.7 Diarrhea, unspecified Office Visit 09/22/2018 3:00p [facility] Carlitos Morales, N.P. 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 M54.2 Cervicalgia F31.81 Bipolar II disorder F41.9 Anxiety disorder, unspecified G43.119 Migraine with aura, intractable, without status migrainosus G47.00 Insomnia, unspecified L20.9 Atopic dermatitis, unspecified J30.9 Allergic rhinitis, unspecified M79.606 Pain in leg, unspecified N20.0 Calculus of kidney E55.9 Vitamin D deficiency, unspecified E66.3 Overweight K86.1 Other chronic pancreatitis E04.0 Nontoxic diffuse goiter R30.0 Dysuria R11.0 Nausea M54.5 Low back pain M54.42 Lumbago with sciatica, left side M54.31 Sciatica, right side Office Visit 07/23/2018 10:30a [facility] Carlitos Morales N.P. M54.2 Cervicalgia F31.81 Bipolar II disorder F41.9 Anxiety disorder, unspecified G43.119 Migraine with aura, intractable, without status migrainosus G47.00 Insomnia, unspecified L20.9 Atopic dermatitis, unspecified J30.9 Allergic rhinitis, unspecified M79.606 Pain in leg, unspecified N20.0 Calculus of kidney E55.9 Vitamin D deficiency, unspecified E66.3 Overweight K86.1 Other chronic pancreatitis E04.0 Nontoxic diffuse goiter R30.0 Dysuria R11.0 Nausea M54.5 Low back pain M54.42 Lumbago with sciatica, left side M54.31 Sciatica, right side Office Visit 07/16/2018 1:15p [facility] Carlitos Morales N.P. M54.2 Cervicalgia F31.81 Bipolar II disorder F41.9 Anxiety disorder, unspecified G43.119 Migraine with aura, intractable, without status migrainosus G47.00 Insomnia, unspecified L20.9 Atopic dermatitis, unspecified J30.9 Allergic rhinitis, unspecified M79.606 Pain in leg, unspecified N20.0 Calculus of kidney E55.9 Vitamin D deficiency, unspecified E66.3 Overweight K86.1 Other chronic pancreatitis E04.0 Nontoxic diffuse goiter R30.0 Dysuria R11.0 Nausea M54.5 Low back pain M54.42 Lumbago with sciatica, left side M54.31 Sciatica, right side Office Visit 06/21/2018 8:30a [facility] Carlitos Morales N.P. M54.2 Cervicalgia F31.81 Bipolar II disorder F41.9 Anxiety disorder, unspecified G43.119 Migraine with aura, intractable, without status migrainosus G47.00 Insomnia, unspecified L20.9 Atopic dermatitis, unspecified J30.9 Allergic rhinitis, unspecified M79.606 Pain in leg, unspecified N20.0 Calculus of kidney E55.9 Vitamin D deficiency, unspecified E66.3 Overweight K86.1 Other chronic pancreatitis E04.0 Nontoxic diffuse goiter R30.0 Dysuria R11.0 Nausea Office Visit 05/28/2018 9:15a [place] [facility] Carlitos Morales N.P. 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 disc degeneration, lumbosacral region M54.2 Cervicalgia F31.81 Bipolar II disorder F41.9 Anxiety disorder, unspecified G43.119 Migraine with aura, intractable, without status migrainosus G47.00 Insomnia, unspecified L20.9 Atopic dermatitis, unspecified J30.9 Allergic rhinitis, unspecified M79.606 Pain in leg, unspecified N20.0 Calculus of kidney Office Visit 09/08/2017 11:45a [facility] Alexia Santiago M51.37 Other intervertebral M., [...] Body mass index (BMI) 28.0-28.9, adult Z79.891 FDC (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 analgesic R11.0 Nausea Office Visit 08/05/2017 1:45p [facility] Heri Higgins M51.37 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 AIRPORT 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 degeneration, 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 region M54.2 Cervicalgia F31.81 Bipolar II disorder 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.891 bed bug exterminator (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 analgesic Office Visit 07/10/2017 11:00a Heri Denny DIRECTOR [employer]PERATIONS M51.37 Other intervertebral disc degeneration, lumbosacral region M54.2 Cervicalgia F31.81 Bipolar II disorder Z79.891 FDC (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 analgesic N39.0 Urinary tract infection, site not specified F41.9 Anxiety disorder, unspecified Office Visit 06/24/2017 3:15p [facility] Heri Higgins M51.37 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 AIRPORT 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 degeneration, lumbosacral region M54.2 Cervicalgia F31.81 Bipolar II disorder Z79.891 FDC (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 analgesic F41.9 Anxiety disorder, unspecified G43.119 Migraine with aura, intractable, without status migrainosus Office Visit 06/10/2017 3:00p [facility] Heri Higgins G43.119 Migraine with aura, DIRECTOR [employer]PERATIONS intractable, without status migrainosus M54.2 Cervicalgia M51.37 Other intervertebral disc degeneration, lumbosacral region F31.81 Bipolar II disorder Office Visit 05/27/2017 11:00a [facility] Heri Higgins M54.2 Cervicalgia M51.37 Other intervertebral disc degeneration, lumbosacral region F31.81 Bipolar II disorder Z79.891 FDC (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 analgesic F41.9 Anxiety disorder, unspecified N76.0 Acute vaginitis Office Visit 05/13/2017 3:45p [facility] Heri Higgins M54.2 Cervicalgia M51.37 Other intervertebral disc degeneration, lumbosacral region F31.81 Bipolar II disorder Z79.891 FDC (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 analgesic Office Visit 04/29/2017 10:00a [facility] Heri Higgins M54.2 Cervicalgia M51.37 Other intervertebral disc degeneration, lumbosacral region F31.81 Bipolar II disorder Z79.891 FDC (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 analgesic Office Visit 04/15/2017 4:15p [facility] Heri Higgins M54.2 Cervicalgia M54.2 Cervicalgia M51.37 Other intervertebral disc degeneration, 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, lumbosacral region F31.81 Bipolar II disorder F31.81 Bipolar II disorder Office Visit 03/23/2017 1:45p [facility] Heri Higgins M54.2 Cervicalgia M51.37 Other intervertebral disc degeneration, lumbosacral region F31.81 Bipolar II disorder Z79.891 FDC (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 analgesic F41.9 Anxiety disorder, unspecified G47.00 Insomnia, unspecified Office Visit 02/18/2017 10:30a [facility] Heri Higgins M54.2 Cervicalgia M51.37 Other intervertebral disc degeneration, lumbosacral region F31.81 Bipolar II disorder Z79.891 FDC (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 analgesic Office Visit 02/04/2017 10:00a [facility] Heri HigginsP M54.2 Cervicalgia M51.37 Other intervertebral disc degeneration, lumbosacral region F41.9 Anxiety disorder, unspecified F31.81 Bipolar II disorder Z79.891 FDC (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 analgesic Office Visit 12/17/2016 4:30p [facility] Heri HigginsP M54.2 Cervicalgia M51.37 Other intervertebral disc degeneration, lumbosacral region F41.9 Anxiety disorder, unspecified F31.81 Bipolar II disorder Office Visit 10/29/2016 10:30a [facility] Heri HigginsP R51 Headache M51.37 Other [...] disorder Office Visit 06/10/2016 9:30a Heri Denny DIRECTOR [employer]PER[employer] M51.37 Other intervertebral disc degeneration, lumbosacral region M79.606 Pain in leg, unspecified F41.9 Anxiety disorder, unspecified G47.00 Insomnia, unspecified F31.81 Bipolar II disorder Office Visit 05/06/2016 10:00a Heri Denny DIRECTOR [employer] O00.1 Tubal M51.37 Other intervertebral disc degeneration, [...] unspecified Office Visit 02/26/2016 2:30p Heri Denny DIRECTOR [employer] O00.1 Tubal M51.37 Other intervertebral disc degeneration, lumbosacral region M79.606 Pain in leg, unspecified F31.81 Bipolar II disorder F41.9 Anxiety disorder, unspecified F33.1 Major depressive disorder, recurrent, moderate Office Visit 01/08/2016 3:15p Heri Denny DIRECTOR [employer] O00.1 Tubal M51.37 Other intervertebral disc degeneration, lumbosacral region M79.606 Pain in leg, unspecified F31.81 Bipolar II disorder Office Visit 11/30/2015 4:00p Alexia Vazquez, M51.37 Other intervertebral M.D. disc degeneration, lumbosacral region M79.606 Pain in leg, unspecified F31.81 Bipolar II disorder G47.00 Insomnia, unspecified L20.9 Atopic dermatitis, unspecified J30.9 Allergic rhinitis, unspecified Office Visit 08/14/2015 10:45a Lisbet Higgins Heri DIRECTOR [employer] M54.5 Low back pain M54.30 Sciatica, unspecified side M51.36 Other intervertebral disc degeneration, lumbar region R35.0 Frequency of micturition Office Visit 06/19/2015 4:00p Heri DennyP M54.30 Sciatica, unspecified side M54.5 Low back pain M51.36 Other intervertebral disc degeneration, lumbar region Office Visit 06/05/2015 10:45a Heri Denny DIRECTOR [employer] M54.5 Low back pain M25.559 Pain in unspecified hip M54.30 Sciatica, unspecified side Office Visit 05/31/2015 10:00a Heri Denny [employer]OR [employer] M54.5 Low back pain M25.559 Pain in unspecified hip M54.30 Sciatica, unspecified side Office Visit 02/13/2015 3:00p Heri Denny DIRECTOR [employer] 300.00 Anxiety State Unspec 311 Depressive Disorder Not Elsewhere Spec V70.0 Examination General Medical Routine AT Health Care Facility V72.62 Laboratory Exam Ordered as Part Of Routine General Med Exam 780.52 Insomnia Unspecified Plan of Treatment 11/26/2018 - Carlitos Morales N.P.M54.2 CervicalgiaComments:EXERCISE/HEAT / MESSAGEAVOID HEAVY LIFTING WT LOSSTYLENOL OR MOTRIN PRN DUR GZAYRXDY43.81 Bipolar II disorderComments:COUNCELLING AND REASSURANCE RELAXATION TECHNIQUES DISCUSSED COUNSELED RE: STRESSORS IN LIFEF41.9 Anxiety disorder, unspecifiedComments:COUNCELLING AND REASSURANCE RELAXATION TECHNIQUES DISCUSSEDCOUNSELED RE: STRESSORS IN LIFE AVOID ALLENERGY/HIGH CAFFEINE DRINKS DUR EREGQMYS12.119 Migraine with aura, intractable, without status migrainosusNew Medication:Imitrex 100 mg - 1 by mouth x once as needed headache , may repeat dose x 1 after 2 hour if no relieve prn. [id number]: COUNCELLING AND REASSURANCE F/U WITH NEUROLOGY PRNG47.00 Insomnia, unspecifiedComments:COUNCELLING AND REASSURANCE RELAXATION TECHNIQUES DISCUSSED COUNSELED RE: STRESSORS IN LIFE TYLENOLPM OR MOTRIN PM PRN DUR KBBYPJMR32.9 Atopic dermatitis, unspecifiedComments:SKIN CARE INSTRUCTIONS LOTION OR BABY OIL 2-3 APPLICATION PER DAYUSE MOISTURIZING SOAPAVOID PROLONGED WATER EXPOSUREAVOID USING HOT WATER IN LVBXRLX14.9 Allergic rhinitis, unspecifiedComments:INCREASE PO FLUID USE ANTIHISTAMINE PRN SECOND HAND SMOKING UMTPVVWGUS42.606 Pain in leg, unspecifiedComments:TYLENOL OR MOTRIN PRN EXERCISE /HEAT/MESSAGE DUR JVPNPZUP10.0 Calculus of kidneyComments:STABLE F/U WITH UROLOGY PRNE55.9 Vitamin D deficiency, unspecifiedComments:INCREASE EXPOSURE TO SUNREVIEW OF DIETE66.3 OverweightComments:EXERCISE REGURALYDIET YJKKGVQYBWVR45.1 Other chronic pancreatitisComments:AVOID ETOH ABUSE SMOKING CESSATIONF/U WITH GIE04.0 Nontoxic diffuse goiterComments:F/U FBWASYMPTOMATIC AT THIS TIMER11.0 NauseaComments:INCREASE PO FLUID SMALL SIPS OF FLUIDS AT A TIME SMALL FREQUENT MEALS F/U DIRECTED CALL IF YOU HAVE VOMITING OR WITH S/ S OF EJHAREKGNIPU89.5 Low back painComments:EXERCISE/HEAT /MESSAGEAVOID HEAVY LIFTING WT LOSSTYLENOL OR MOTRIN PRNM54.42 Lumbago with sciatica, left sideComments:EXERCISE/HEAT /MESSAGEAVOID HEAVY LIFTING WT LOSSTYLENOL OR MOTRIN PRNM54.31 Sciatica, right sideComments:EXERCISE/HEAT /MESSAGEAVOID HEAVY LIFTING WT LOSSTYLENOL OR MOTRIN PRNZ79.891 FDC (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 analgesicComments:REVIEWED MEDICATIONS AND DIRECTIONS WITH PATIENT DUR WVVSONAX96.0 DysuriaComments:INCREASE PO FLUID OBSERVE AND MCIVYLJSK39.7 Diarrhea, unspecifiedComments:INCREASE PO FLUID DIET REVIEW [place] DIET PRNIMMODIUM PRN
--- OUTSIDE RECORDS SUMMARY | 2018-12-04 16:39 | XMS REPORT | Continuity of Care Document ---
:1985 External Reference #:[id number] Author Name Shannan Jaquez NP Address [address] [place] [address] Care Team Providers Name Role Phone Alexia Santiago MD Primary Care Physician Unavailable Payers Date Identification Numbers Payment Provider Subscriber Effective: 2013 Policy Number: [id number] [facility] Madai Ivan Group Name: [employer] [address] PayID: [id number] [place] [address] Effective: 2018 Policy Number: [id number] Medicaid [place] Madai Ivan PayID: [id number] [address] [place] [address] Expires: 2017 Policy Number: [id number] Madai Ivan PayID: [id number] [place] [id number] Advance Directives Description No Information Available Problems Active Problems Provider Date Bipolar disorder Nohemy Strickland NP Onset: 10/23/2017 Family History Date Family Member(s) Observation Comments General Uterine Cancer MGM-possibly General Ovarian Cancer MGM-possibly Father Alive Father Thyroid Disease Mother Alive Mother No Current Problems Social History Type Date Description Comments Sex Female Education Highest level completed, Vocational Degree Marital Status Legal Status: Never Tobacco Use Reviewed: Never Smoked Cigars 08/20/18 Smoking Status Reviewed: Never Smoked Cigars 08/20/18 Tobacco Use Reviewed: Never Smoked A Pipe 08/20/18 Tobacco Use Reviewed: Never Used Smokeless 08/20/18 Tobacco ETOH Use Rarely consumes alcohol Tobacco Use Start: Unknown Patient is a former quit 2004, has not End: Unknown smoker smoked for 14 years. Recreational Drug Use Denies Drug Use Recreational Drug Use Teaching provided regarding Naloxone/Narcan Training Available At [facility] Tattoo/Piercing Tattoo professionally done Condom Use Never Contraceptive Methods Past methods include oral contraceptives Contraceptive Methods Past methods include depo-provera injection Contraceptive Methods Past methods include levonorgestrel IUD UNKNOWN 08/20/2018 Never E-Cigarette user Allergies, Adverse Reactions, Alerts Active Allergies Reaction Severity Comments Date Bacitracin 06/03/2017 Sulfa Antibiotics 10/23/2017 Keflex 05/27/2018 Medications Active Medications SIG Qnty Indications Ordering Date Provider Depo-Provera intramuscular every 1ml Z30.42 In Osmani Atkins MD 11/24/2018 150mg/ml 12 weeks til next Suspension annual Depo-Provera 1 intramuscular 1ml Z30.013 Nohemy Strickland, 05/27/2018 150mg/ml injection every 12 INDIVIDUAL PENSION ADVISER Suspension weeks until annual exam Abilify Unknown Hydrocodone-Acetamin Unknown ophen Gabapentin Unknown Venlafaxine HCL Unknown History Medications Fluconazole one tab orally x one 1tabs Nohemy Strickland, 02/11/2018 - 150mg dose INDIVIDUAL PENSION ADVISER 05/27/2018 Tablets Macrobid one capsule by mouth 14caps N39.0 Nohemy Strickland, 02/04/2018 - 100mg twice a day x 7 days INDIVIDUAL PENSION ADVISER 05/27/2018 Capsules Flagyl four tabs by mouth x 4tabs Z20.2 Nohemy Strickland, 10/23/2017 - 500mg 1 dose INDIVIDUAL PENSION ADVISER 02/04/2018 Tablets Fluoxetine HCL 1 by mouth every day In Osmani Atkins MD 06/03/2017 - 11/24/2018 40mg Capsules Depo-Provera intramuscular every 1ml Z30.013 In Osmani Atkins MD 06/03/2017 - 12 weeks til next 10/23/2017 150mg/ml annual Suspension Diazepam Unknown - 10/23/2017 Hydrocodone-Acetam Unknown - inophen 10/23/2017 Prozac Unknown - 02/04/2018 Medications Administered in Office Medication SIG Qnty Indications Ordering Provider Date Econtra Ez take one tab now, 1tabs Z30.012 In Osmani Atkins MD 06/03/2017 1.5mg Tablets call for new dose if vomiting occurs within 1 hour of taking J-Depo Provera Shannan Ruddick, 11/24/2018 Injection INDIVIDUAL PENSION ADVISER Injection J-Depo Provera Lisa Guerra 08/20/2018 Injection Injection J-Depo Provera Nohemy Granado Em, 05/27/2018 Injection INDIVIDUAL PENSION ADVISER Injection Emergency Shannan Jaquez, 06/03/2017 Contraceptive INDIVIDUAL PENSION ADVISER Injection J-Depo Provera Shannan Jaquez, 06/03/2017 Injection INDIVIDUAL PENSION ADVISER Injection Immunizations Description No Information Available Vital Signs Date Vital Result Comment 11/24/2018 1:30pm BP Systolic 121 mmHg BP Diastolic 74 mmHg Height 64 inches 5'4" Weight 157.00 lb BMI (Body Mass Index) 26.9 kg/m2 08/20/2018 9:29am BP Systolic 120 mmHg BP Diastolic 72 mmHg Weight 156.00 lb 05/27/2018 2:05pm BP Systolic 120 mmHg BP Diastolic 80 mmHg Height 64 inches 5'4" Weight 155.00 lb BMI (Body Mass Index) 26.6 kg/m2 02/04/2018 11:42am BP Systolic 118 mmHg BP Diastolic 78 mmHg Height 64 inches 5'4" Weight 147.00 lb BMI (Body Mass Index) 25.2 kg/m2 10/23/2017 2:22pm BP Systolic 119 mmHg BP Diastolic 78 mmHg Height 64 inches 5'4" Weight 165.00 lb BMI (Body Mass Index) 28.3 kg/m2 06/03/2017 10:20am BP Systolic 103 mmHg BP Diastolic 62 mmHg Height 64 inches 5'4" Weight 158.00 lb BMI (Body Mass Index) 27.1 kg/m2 Results Test Date Facility Test Result H/L Range Note Laboratory test 05/27/2018 [facility] HIV non reactive finding Rapid... Chlamydia/N 05/27/[address] [facility] [address],Rna,Tma, NOT DETECTED Not Detected 1 Gonorroeae Rna Tma Urogenital Urogenit GC Rna,Tma,Urogen NOT DETECTED Not Detected 2 Laboratory test finding 05/27/2018 [facility] Test Urine..... neg Laboratory test finding 02/04/2018 [facility] Test Urine..... neg HIV Rapid... non reactive Wet Prep.... 02/04/2018 [facility] WBC Smear many Clue Cells Vag Fluid Wet Prep 0 Tawanna Wet Prep 0 Lactobacillus Wet Prep many Whiff Wet Prep neg. Bacteria Wet Prep n/a PH Wet Prep 4.5 Misc Other Test no trich seen Urinalysis DIP Only.... 02/04/2018 [facility] Urine Leukocyte Esterase QN ++ Urine Nitrite QN N Urine Blood N Urine PH 6.0 Urine Protein Random N Urine Ketone Random N Urine Glucose QN Random N Vitek GP67 Susceptibility Org 1 02/04/2018 [facility] Ampicillin S (<=2) Ciprofloxacin S (<=0.5) Levofloxacin S (1) Linezolid S (2) Nitrofurantoin S (<=16) Penicillin S (2) Tetracycline S (<=1) Vancomycin S (1) 3 Culture,Urine,Voided 02/04/2018 [facility] URINE Organism #1 SEE NOTE Abnormal 4 Chlamydia/N 02/04/[address] [facility] [address],Rna,Tma,Urogenital NOT DETECTED Not Detected 5 Gonorroeae Rna Tma Urogenit GC Rna,Tma,Urogen NOT DETECTED Not Detected 6 Thinprep Tis And HPV Rna HR 02/04/2018 [facility] Results ASCUS/ HPV negae Abnormal 7 E6/E7 Tma Wet Prep.... 10/23/2017 [facility] WBC Smear many Clue Cells Vag Fluid Wet Prep 0 Tawanna Wet Prep 0 Lactobacillus Wet Prep many Whiff Wet Prep neg. Bacteria Wet Prep n/a PH Wet Prep 4.5 [facility] [place] no trich seen Laboratory test 10/23/2017 [facility] Trichomonas negative finding Chlam 10/23/2017 [facility] C.Trachomatis NOT DETECTED Not Detected 8 Trach/Neisseria Rna,Tma Gonorroeae Rna Tma N.Gonorrhoeae Rna,Tma NOT DETECTED Not Detected 9 Urinalysis DIP Only.... 10/23/2017 [facility] Urine Leukocyte Esterase QN ++ Urine Nitrite QN N Urine Blood + Urine PH 7.5 Urine Protein Random N Urine Ketone Random N Urine Glucose QN Random N Laboratory test finding 10/23/2017 [facility] Test Urine..... neg HIV Rapid... non reactive Chlam 06/03/2017 [facility] C.Trachomatis NOT DETECTED Not Detected 10 Trach/Neisseria Rna,Tma Gonorroeae Rna Tma N.Gonorrhoeae Rna,Tma NOT DETECTED Not Detected 11 Laboratory test 06/03/2017 [facility] RPR W/Titer and NON-REACTIVE Non- Reactive 12 finding Conf RFX Laboratory test 06/03/2017 [facility] HIV Rapid... non reactive finding Hep C Rapid Test non reactive Wet Prep.... 06/03/2017 [facility] WBC Smear neg Clue Cells Vag Fluid Wet Prep neg Tawanna Wet Prep neg Lactobacillus Wet Prep few Whiff Wet Prep neg Bacteria Wet Prep na PH Wet Prep 4.5 Misc Other Test no tric 1 This test was performed using the APTIMA COMBO2(R) Assay (GEN-PROBE(R). The analytical performance characteristics of this assay, when used to test SurePath(R) specimens have been determined by [facility]. 2 This test was performed using the APTIMA COMBO2(R) Assay (GEN-PROBE(R). The analytical performance characteristics of this assay, when used to test SurePath(R) specimens have been determined by [facility]. 3 ( )=MINIMUM INHIBITORY CONCENTRATION IN MCG/ML 4 ENTEROCOCCUS FAECALIS GREATER THAN 100,000 CFU/ML 5 This test was performed using the APTIMA COMBO2(R) Assay (GEN-PROBE(R). The analytical performance characteristics of this assay, when used to test SurePath(R) specimens have been determined by [facility]. 6 This test was performed using the APTIMA COMBO2(R) Assay (GEN-PROBE(R). The analytical performance characteristics of this assay, when used to test SurePath(R) specimens have been determined by [facility]. 7 GYNECOLOGICAL CYTOLOGY REPORT THINPREP TIS AND HPV mRNA E6/E7 Thinprep-TIS REPORT STATUS: FINAL CLINICAL INFORMATION: Information not provided SLIDES / SOURCE: 1 / Information not provided STATEMENT OF ADEQUACY: Satisfactory for evaluation. Endocervical/transformation zone component present. GENERAL CATEGORIZATION: EPITHELIAL CELL ABNORMALITY INTERPRETATION/RESULT: Atypical Squamous Cells of Undetermined Significance (ASC-US) COMMENT: This Pap test has been evaluated with computer assisted technology. TUBULAR RIVETER: NATE CHAKRABORTY(ASCP) For informational Purposes: All cytology specimens are processed and screened at [facility]. [address] [place] [id number] PATHOLOGIST: Kristal eHnderson M.D. Board Certified in Anatomic and Clinical Pathology (electronic signature) For questions regarding this report call Anatomic Pathology at [phone] The Pap is a screening test for cervical cancer. It is not a diagnostic test and is subject to false negative and false positive results. It is most reliable when a satisfactory sample, regularly obtained, is submitted with relevant clinical findings and history, and when the Pap result is evaluated along with historic and current clinical information. HPV mRNA E6/E7 HPV mRNA E6E7 Not Detected REFERENCE RANGE: NOT DETECTED This test was performed using the APTIMA HPV Assay ([employer] This assay detects E6/E7 viral messenger RNA (mRNA) from 14 high-risk HPV types (16,18,31,33,35,39,45,51,52,56,58,59,66,68). 8 This test was performed using the APTIMA COMBO2(R) Assay (GEN-PROBE(R). The analytical performance characteristics of this assay, when used to test SurePath(R) specimens have been determined by [facility]. 9 This test was performed using the APTIMA COMBO2(R) Assay (GEN-PROBE(R). The analytical performance characteristics of this assay, when used to test SurePath(R) specimens have been determined by [facility]. 10 This test was performed using the APTIMA COMBO2(R) Assay (GEN-PROBE(R). The analytical performance characteristics of this assay, when used to test SurePath(R) specimens have been determined by [facility]. 11 This test was performed using the APTIMA COMBO2(R) Assay (GEN-PROBE(R). The analytical performance characteristics of this assay, when used to test SurePath(R) specimens have been determined by [facility]. 12 The RPR is a vrg-plawimnhpt-lqztprwv test; therefore a treponemal-specific confirmatory test should be performed unless prior syphilis infection has been documented for the patient. Procedures Date Code Description Status 11/24/2018 27439 Therapeutic, Prophylactic Or Diagnostic Injection Subq/Im Completed 08/20/2018 02687 Therapeutic, Prophylactic Or Diagnostic Injection Subq/Im Completed 05/27/2018 51268 Therapeutic, Prophylactic Or Diagnostic Injection Subq/Im Completed 06/03/2017 65349 Therapeutic, Prophylactic Or Diagnostic Injection Subq/Im Completed Encounters Type Date Location Provider Dx Diagnosis Office Visit 05/27/2018 CARMELINA Strickland NP Z30.013 Encounter for initial 2:00p prescription of injectable contracep Z11.4 Encounter for screening for human immunodeficiency virus Z32.02 Encounter for test, result negative Z11.3 Encntr screen for infections w sexl mode of transmiss Z13.9 Encounter for screening, unspecified Z30.40 Encounter for surveillance of contraceptives, unspecified Office Visit 02/04/2018 11:30a [facility] Nohemy Strickland NP Z01.419 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) w/o abn findings Z30.09 Encounter for oth general coun and advice on contraception Z32.02 Encounter for test, result negative Z11.4 Encounter for screening for human immunodeficiency virus Z11.3 Encntr screen for infections w sexl mode of transmiss Z12.4 Encounter for screening for malignant neoplasm of cervix N39.0 Urinary tract infection, site not specified N92.1 Excessive and frequent menstruation with irregular cycle Z13.9 Encounter for screening, unspecified Z11.51 Encounter for screening for human papillomavirus (HPV) Z13.1 Encounter for screening for diabetes mellitus Office Visit 10/23/2017 2:00p [facility] Nohemy Strickland NP Z20.2 Contact w and exposure to infect w a sexl mode of transmiss Z30.09 Encounter for oth general coun and advice on contraception Z32.02 Encounter for test, result negative Z11.4 Encounter for screening for human immunodeficiency virus F32.89 Other specified depressive episodes Z11.3 Encntr screen for infections w sexl mode of transmiss Z13.9 Encounter for screening, unspecified Z13.1 Encounter for screening for diabetes mellitus Office Visit 06/03/2017 9:30a [facility] Shannan Jaquez NP Z30.013 Encounter for initial prescription of injectable contracep Z11.4 Encounter for screening for human immunodeficiency virus Z11.59 Encounter for screening for other viral diseases Z11.3 Encntr screen for infections w sexl mode of transmiss Z30.012 Encounter for prescription of emergency contraception Z13.9 Encounter for screening, unspecified Z71.7 Human immunodeficiency virus [HIV] counseling F17.200 Nicotine dependence, unspecified, uncomplicated Plan of Treatment 11/24/2018 - Sahnnan Jaquez NPZ30.42 Encounter for surveillance of injectable contraceptiveNew Medication:Depo-Provera 150 mg/ml - intramuscular every 12 weeks til next annualFollow up:12 aediuX71.3 Encounter for screening for infections with a predominantly sexual mode of transmissionNew Labs:Chlamydia/N Gonorroeae Rna Tma Urogenit, Ordered: 11/24/18Follow up:Follow up if any further symptoms.
[2018-12-04 16:43] VITALS: BP 127/58
--- NOTE | 2018-12-04 16:52 | UC ---
Complaint Female HPI - HPI Summary HPI Summary: dysuria and urinary frequency x1 day. no fever/chills. - History Of Current Complaint Chief Complaint: [facility] Stated Complaint: URINARY COMPLAINT Time Seen by Provider: 12/04/18 16:48 Hx Obtained From: Patient Hx Last Menstrual Period: on depo inj ?: No Onset/Duration: Sudden Onset, Lasting Hours Timing: Constant Severity Initially: Mild Severity Currently: None Pain Intensity: 0 Aggravating Factor(s): Urination - Allergies/Home Medications Allergies/Adverse Reactions: Allergies Allergy/AdvReac Type Severity Reaction Status Date / Time bacitracin Allergy Rash And Verified 12/04/18 16:38 Itching cephalexin [From Keflex] Allergy Hives Verified 12/04/18 16:38 Sulfa (Sulfonamide Allergy Hives Verified 12/04/18 16:38 Antibiotics) Home Medications: Home Medications Anxiety Med 1 tab Q6HR PRN 12/04/18 [History Confirmed 12/04/18] Gabapentin CAP(*) [Neurontin 100 mg CAP(*)] 100 mg PO TID 12/04/18 [History Confirmed 12/04/18] Venlafaxine EXT RELEASE CAP* [Effexor Xr CAP*] 75 mg PO DAILY 12/04/18 [History Confirmed 12/04/18] medroxyPROGESTERone ACETATE* [DEPO-Provera*] 1 syr SEE INSTRUCTIONS 12/04/18 [ History Confirmed 12/04/18] PMH/Surg Hx/FS Hx/Imm Hx Previously Healthy: Yes - Surgical History Surgical History: Yes Surgery Procedure, Year, and Place: T&A. urethral diverticulium with cyst removal. eptopic with partial tube removal. ectopic 12/2015. RENAL CALCULI LITHOTRIPSY - Family History Known Family History: Positive: None, Diabetes Negative: Cardiac Disease, Hypertension - Social History Alcohol Use: Occasionally Substance Use Type: None Smoking Status (MU): Former Smoker Type: Cigarettes Length of Time of Smoking/Using Tobacco: On and Off for 3 years Have You Smoked in the Last Year: No When Did the Patient Quit Smoking/Using Tobacco: 2004 - Immunization History Most Recent Influenza Vaccination: Not the 2015/2016 Season Review of Systems All Other Systems Reviewed And Are Negative: Yes Constitutional: Positive: Negative Skin: Positive: Negative Genitourinary: Positive: Dysuria, Frequency, Urgency Physical Exam Triage Information Reviewed: Yes Appearance: Well-Appearing, Well-Nourished, Pain Distress Vital Signs: Initial Vital Signs Temp 97.7 F 12/04/18 16:40 Pulse 77 12/04/18 16:40 Resp 16 12/04/18 16:40 BP 127/58 12/04/18 16:40 Pulse Ox 100 12/04/18 16:40 Vital Signs Reviewed: Yes Eye Exam: Normal ENT Exam: Normal Dental Exam: Normal Neck exam: Normal Respiratory Exam: Normal Cardiovascular Exam: Normal Abdominal Exam: Normal Abdomen Description: Positive: CVA Tenderness (R) - neg, CVA Tenderness (L) - neg Bowel Sounds: Positive: Present Musculoskeletal Exam: Normal Neurological Exam: Normal Psychological Exam: Normal Skin Exam: Normal Complaint Female Dx - Course Course Of Treatment: hx obtained, exam performed, meds reviewed ua obtained and is pos for UTI, culture sent treated with macrobid - Differential Dx/Diagnosis Differential Diagnosis/HQI/PQRI: Urinary Tract Infection Provider Diagnosis: UTI (urinary tract infection) Discharge - Sign-Out/Discharge Documenting (check all that apply): Patient Departure All imaging exams completed and their final reports reviewed: No Studies - Discharge Plan Condition: Stable Disposition: HOME Prescriptions: Nitrofurantoin Monohyd/M-Cryst [Macrobid 100 mg Capsule] 100 mg PO BID #14 cap Patient Education Materials: Urinary Tract Infection in Women (ED) Referrals: Alexia Santiago MD [Primary Care Provider] - Additional Instructions: 1. take the medication as prescribed. 2. Follow up as needed. - Billing Disposition and Condition Condition: STABLE Disposition: Home
[2018-12-04] MEDS ORDERED: Phenazopyridine TAB* 100 MG PO ONE (16:57)
== END 2018-12-04 17:03 | disposition home or self-care (01) ==
LOC: UCCORT 15:49
DX: N39.0 Urinary tract infection, site not specified (principal); Z88.1 Allergy status to other antibiotic agents; Z88.2 Allergy status to sulfonamides; Z87.891 Personal history of nicotine dependence
CPT/HCPCS: 81003; 84702; 87086; 99212; A9270-GY; G0463

== ENCOUNTER 2019-10-04 15:38 | Emergency (ER) | payer MEDICAID, OTHER ==
--- NOTE | 2019-10-04 16:36 | UC ---
Shoulder Pain HPI - HPI Summary HPI Summary: 34-year-old female who fell "sometime last week I'm not sure when", onto her back. She states past 2 days she is been experiencing some right shoulder pain. She feels like the shoulder muscle and right neck muscle are tight. She denies any difficulty breathing. Denies any other injury. She denies any neck pain or back pain. She did not hit her head. - History of Current Complaint Stated Complaint: S/P FALL, RIGHT SHOULDER INJURY Time Seen by Provider: 10/04/19 16:36 Hx Obtained From: Patient Hx Last Menstrual Period: on depo inj ?: No Onset/Duration: Gradual Onset Timing: Constant Severity Initially: Mild Severity Currently: Mild Character: Dull, Aching Aggravating Factor(s): Movement, Lifting Alleviating Factor(s): Rest Associated Signs And Symptoms: Positive: Negative Related History: Dominant Hand Right - Allergies/Home Medications Allergies/Adverse Reactions: Allergies Allergy/AdvReac Type Severity Reaction Status Date / Time bacitracin Allergy Rash And Verified 10/04/19 16:36 Itching cephalexin [From Keflex] Allergy Hives Verified 10/04/19 16:36 Sulfa (Sulfonamide Allergy Hives Verified 10/04/19 16:36 Antibiotics) Home Medications: Home Medications ARIPiprazole TAB* [Abilify TAB*] 5 mg PO DAILY 10/04/19 [History Confirmed ] Bupropion XL* [Wellbutrin XL *] 300 mg PO DAILY 10/04/19 [History Confirmed ] Cyclobenzaprine TAB* [Flexeril 10 MG TAB*] 10 mg PO TID PRN 10/04/19 [History Confirmed 10/04/19] Cyclobenzaprine TAB* [Flexeril 10 MG TAB*] 10 mg PO TID PRN #15 tab 10/04/19 [Rx ] Ibuprofen TAB* [Motrin TAB* 600 MG] 600 mg PO Q8H PRN #30 tab 10/04/19 [Rx] LORazepam TAB(*) [Ativan 0.5 MG TAB (*)] 0.5 mg PO QID PRN 10/04/19 [History Confirmed 10/04/19] PMH/Surg Hx/FS Hx/Imm Hx Previously Healthy: Yes - Surgical History Surgical History: Yes Surgery Procedure, Year, and Place: T&A. urethral diverticulium with cyst removal. eptopic with partial tube removal. ectopic 12/2015. RENAL CALCULI LITHOTRIPSY - Family History Known Family History: Positive: None, Diabetes Negative: Cardiac Disease, Hypertension - Social History Lives: With Family Alcohol Use: Occasionally Substance Use Type: None Smoking Status (MU): Former Smoker Type: Cigarettes Length of Time of Smoking/Using Tobacco: On and Off for 3 years Have You Smoked in the Last Year: No When Did the Patient Quit Smoking/Using Tobacco: 2004 - Immunization History Most Recent Influenza Vaccination: Not the Season Review of Systems All Other Systems Reviewed And Are Negative: Yes Musculoskeletal: Positive: Other: - Right shoulder pain which patient states is more the upper right shoulder and up into the neck around the sternocleidomastoid muscle. Is Patient Immunocompromised?: No Physical Exam Triage Information Reviewed: Yes Appearance: Well-Appearing, No Pain Distress, Well-Nourished Vital Signs Reviewed: Yes Eyes: Positive: Conjunctiva Clear ENT: Positive: Hearing grossly normal Neck: Positive: Supple, No Lymphadenopathy, Other: - Mild tenderness along the right sternocleidomastoid mastoid muscle with some muscle tightness. Respiratory: Positive: Lungs clear, Normal breath sounds, No respiratory distress, No accessory muscle use Cardiovascular: Positive: RRR, No Murmur, Pulses Normal, Brisk Capillary Refill Musculoskeletal: Positive: Strength Intact, ROM Intact, Other: - Patient has good range of motion if she does it slowly and has more pain in the anterior right shoulder and up into the right sternocleidomastoid muscle which is quite tight on palpation. Neurological: Positive: Alert, Muscle Tone Normal Psychological Exam: Normal Skin Exam: Normal Shoulder Course/Dx - Course Course Of Treatment: Right shoulder x-ray:Report: #. Negative for fracture or focal osseous lesions. #. Normal acromioclavicular and glenohumeral joint alignment. #. No significant arthropathic change evident at the acromioclavicular or glenohumeral joints. #. Negative for calcific tendinopathy. #. Unremarkable soft tissue contours. IMPRESSION: #. Negative exam. Patient is comfortable here. She was given Toradol 30 mg IM. I'm going to treat her with Flexeril as well as alternating Tylenol and ibuprofen over the next few days. She may move as pain permits. - Differential Dx/Diagnosis Provider Diagnosis: Right shoulder strain, Strain of cervical portion of right trapezius muscle Discharge ED - Sign-Out/Discharge Documenting (check all that apply): Patient Departure All imaging exams completed and their final reports reviewed: Yes - Discharge Plan Condition: Good Disposition: HOME Prescriptions: Cyclobenzaprine TAB* [Flexeril 10 MG TAB*] 10 mg PO TID PRN #15 tab PRN Reason: Pain - Mild Ibuprofen TAB* [Motrin TAB* 600 MG] 600 mg PO Q8H PRN #30 tab PRN Reason: Pain - Mild Patient Education Materials: Shoulder Pain (ED) Referrals: Dyana Castro MD [Primary Care Provider] - Additional Instructions: Apply heat to the sore area, avoid movements that cause pain, follow-up with your primary care provider if no improvement in 3-4 days. - Billing Disposition and Condition Condition: GOOD Disposition: Home
[2019-10-04 16:47] VITALS: BP 115/60
[2019-10-04] MEDS ORDERED: Ketorolac INJ* 30 MG/ML 1 ML VIAL IM ONE (16:53)
== END 2019-10-04 17:42 | disposition home or self-care (01) ==
LOC: UCCORT 15:38
DX: S46.811A Strain of other muscles, fascia and tendons at shoulder and upper arm level, right arm, initial encounter (principal); Z88.1 Allergy status to other antibiotic agents; Z88.2 Allergy status to sulfonamides; Z87.891 Personal history of nicotine dependence; X58.XXXA Exposure to other specified factors, initial encounter; Y92.9 Unspecified place or not applicable
CPT/HCPCS: 96372; 99212; G0463; J1885